=== PATIENT | female | born 1955 | race Caucasian/White ===

== ENCOUNTER 2020-09-17 11:20 | Outpatient (REF) | payer MEDICARE, SELFPAY ==
[2020-09-17 14:27] LABS: Alanine Aminotransferase 11 U/L (0-31); Albumin Level 4.5 g/dL (3.5-5.0); Alkaline Phosphatase 62 U/L (39-117); Anion Gap 12 (12-20); Aspartate Amino Transferase 14 U/L (5-31); Bilirubin Total 0.3 mg/dL (0.0-1.0); Blood Urea Nitrogen 19 mg/dL (9-16); Calcium 8.8 mg/dL (8.4-10.2); Carbon Dioxide 28 mmol/L (22-29); Chloride 106 mmol/L (96-108); Estimated Glomerular Filt Rate 58; Glucose Random 100 mg/dL (60-115); Potassium 4.2 mmol/l (3.3-5.1); Sodium 142 mmol/L (135-145); Total Protein 6.8 g/dL (6.5-8.0)
== END 2020-09-17 11:21 | disposition home or self-care (01) ==
LOC: HO.HMGCLDS 11:20
PROVIDERS: PCP Internal Medicine; Visit Provider Internal Medicine
DX: I10 Essential (primary) hypertension (principal); F41.9 Anxiety disorder, unspecified; E78.9 Disorder of lipoprotein metabolism, unspecified
CPT/HCPCS: 80053

== ENCOUNTER 2021-02-18 14:00 | Outpatient (REF) | payer MEDICARE, BC, SELFPAY ==
[2021-02-18 17:19] LABS: Alanine Aminotransferase 12 U/L (0-31); Albumin Level 4.5 g/dL (3.5-5.0); Alkaline Phosphatase 63 U/L (39-117); Anion Gap 13 (12-20); Aspartate Amino Transferase 15 U/L (5-31); Bilirubin Total 0.4 mg/dL (0.0-1.0); Blood Urea Nitrogen 18 mg/dL (9-16); Calcium 9.3 mg/dL (8.4-10.2); Carbon Dioxide 27 mmol/L (22-29); Chloride 105 mmol/L (96-108); Estimated Glomerular Filt Rate 58; Glucose Random 81 mg/dL (60-115); Potassium 5.1 mmol/L (3.3-5.1); Sodium 140 mmol/L (135-145); Total Protein 6.9 g/dL (6.5-8.0)
== END 2021-02-18 14:01 | disposition home or self-care (01) ==
LOC: HO.HMGCLDS 14:00
PROVIDERS: PCP Internal Medicine; Visit Provider Internal Medicine
DX: E78.9 Disorder of lipoprotein metabolism, unspecified (principal); I10 Essential (primary) hypertension; F41.1 Generalized anxiety disorder
CPT/HCPCS: 36415; 80053

== ENCOUNTER 2021-08-21 09:04 | Outpatient (REF) | payer MEDICARE, BC, SELFPAY | END 2021-08-21 09:05 | disposition home or self-care (01) | LOC: HO.HMGCLDS 09:04 | PROVIDERS: PCP Internal Medicine; Visit Provider Internal Medicine | DX: Z20.822 Contact with and (suspected) exposure to COVID-19 (principal) | CPT/HCPCS: C9803; U0003; U0005 ==

== ENCOUNTER 2021-09-09 08:36 | Outpatient (REF) | payer MEDICARE, BC, SELFPAY ==
[2021-09-09 12:03] LABS: Alanine Aminotransferase 11 U/L (0-31); Albumin Level 4.4 g/dL (3.5-5.0); Alkaline Phosphatase 68 U/L (39-117); Anion Gap 13 (12-20); Aspartate Amino Transferase 17 U/L (5-31); Bilirubin Total 0.6 mg/dL (0.0-1.0); Blood Urea Nitrogen 17 mg/dL (9-16); Calcium 9.5 mg/dL (8.4-10.2); Carbon Dioxide 27 mmol/L (22-29); Chloride 106 mmol/L (96-108); Cholesterol 195 mg/dL; Estimated Glomerular Filt Rate 53; Glucose Fasting 100 mg/dL (60-99); HDL Cholesterol 50 mg/dL; LDL Cholesterol Calculated 114 mg/dl; Potassium 4.1 mmol/L (3.3-5.1); Sodium 142 mmol/L (135-145); Total Protein 6.7 g/dL (6.5-8.0); Triglycerides 156 mg/dL
== END 2021-09-09 08:37 | disposition home or self-care (01) ==
LOC: HO.HMGCLDS 08:36
PROVIDERS: PCP Internal Medicine; Visit Provider Internal Medicine
DX: E66.01 Morbid (severe) obesity due to excess calories (principal); E78.9 Disorder of lipoprotein metabolism, unspecified; F41.1 Generalized anxiety disorder; I10 Essential (primary) hypertension
CPT/HCPCS: 36415; 80053; 80061

== ENCOUNTER 2022-02-17 11:37 | Outpatient (REF) | payer MEDICARE, BC, SELFPAY ==
[2022-02-17 13:37] LABS: MANUAL DIFF FLAG NO
[2022-02-17 13:41] LABS: Basophils Absolute Auto 0.1 X10*3/uL (0.0-0.2); Basophils Percent Auto 0.9 % (0-2); Eosinophils Absolute Auto 0.2 X10*3/uL (0.0-0.4); Eosinophils Percent Auto 2.1 % (0-4); Hematocrit 42.5 % (37.0-47.0); Hemoglobin 13.1 g/dl (12.0-16.0); Imm Gran Abs Auto 0.06 X10*3/uL (0.00-0.03); Imm Gran Pct Auto 0.7 % (0.0-0.4); Lymphocytes Absolute Auto 1.7 X10*3/uL (1.2-4.9); Lymphocytes Percent Auto 20.8 % (20-40); Mean Corpuscular HGB Conc 30.8 g/dl (31.0-35.0); Mean Corpuscular Hemoglobin 30.2 pg (27.0-33.0); Mean Corpuscular Volume 97.9 fL (80.0-98.0); Mean Platelet Volume 9.8 fL (9.4-12.3); Monocytes Absolute Auto 0.5 X10*3/uL (0.1-1.2); Monocytes Percent Auto 6.2 % (2-11); Neutrophils Absolute Auto 5.6 x10*3/uL (2.0-8.3); Neutrophils Percent Auto 69.3 % (45-73); Platelet Count 300 X10*3/uL (160-400); Red Blood Count 4.34 X10*6/uL (4.20-5.50); Red Cell Distribution Width 15.1 % (11.0-16.0)
[2022-02-17 13:52] LABS: Estimated Average Glucose 111 mg/dL; Hemoglobin A1c % 5.5 %
[2022-02-17 14:03] LABS: Alanine Aminotransferase 11 U/L (0-31); Albumin Level 4.3 g/dL (3.5-5.0); Alkaline Phosphatase 63 U/L (39-117); Anion Gap 13 (12-20); Aspartate Amino Transferase 15 U/L (5-31); Bilirubin Total 0.5 mg/dL (0.0-1.0); Blood Urea Nitrogen 15 mg/dL (9-16); Calcium 9.6 mg/dL (8.4-10.2); Carbon Dioxide 26 mmol/L (22-29); Chloride 106 mmol/L (96-108); Estimated Glomerular Filt Rate 56; Glucose Random 112 mg/dL (60-115); Potassium 4.5 mmol/L (3.3-5.1); Sodium 140 mmol/L (135-145); Total Protein 6.7 g/dL (6.5-8.0)
== END 2022-02-17 11:38 | disposition home or self-care (01) ==
LOC: HO.HMGCLDS 11:37
PROVIDERS: PCP Internal Medicine; Visit Provider Internal Medicine
DX: E78.9 Disorder of lipoprotein metabolism, unspecified (principal); F41.1 Generalized anxiety disorder; I10 Essential (primary) hypertension; E66.9 Obesity, unspecified; R73.01 Impaired fasting glucose
CPT/HCPCS: 36415; 80053; 83036; 85025

== ENCOUNTER 2022-10-19 08:37 | Outpatient (REF) | payer MEDICARE, BC, SELFPAY ==
[2022-10-19 12:37] LABS: Alanine Aminotransferase 9 U/L (0-31); Albumin Level 4.2 g/dL (3.5-5.0); Alkaline Phosphatase 47 U/L (39-117); Anion Gap 13 (12-20); Aspartate Amino Transferase 15 U/L (5-31); Bilirubin Total 0.6 mg/dL (0.0-1.0); Blood Urea Nitrogen 22 mg/dL (9-16); Carbon Dioxide 27 mmol/L (22-29); Chloride 106 mmol/L (96-108); Cholesterol 175 mg/dL; Estimated Glomerular Filt Rate > 60; Glucose Fasting 92 mg/dL (60-99); HDL Cholesterol 43 mg/dL; LDL Cholesterol Calculated 101 mg/dl; Potassium 4.1 mmol/L (3.3-5.1); Sodium 142 mmol/L (135-145); Total Protein 6.2 g/dL (6.5-8.0); Triglycerides 159 mg/dL
== END 2022-10-19 08:38 | disposition home or self-care (01) ==
LOC: HO.HMGCLDS 08:37
PROVIDERS: Visit Provider Internal Medicine
DX: E78.9 Disorder of lipoprotein metabolism, unspecified (principal); F41.1 Generalized anxiety disorder; I10 Essential (primary) hypertension
CPT/HCPCS: 36415; 80053; 80061

== ENCOUNTER 2023-03-09 12:47 | Outpatient (REF) | payer MEDICARE, BC, SELFPAY ==
[2023-03-09 14:28] LABS: MANUAL DIFF FLAG NO
[2023-03-09 15:18] LABS: Basophils Absolute Auto 0.1 X10*3/uL (0.0-0.2); Basophils Percent Auto 0.7 % (0-2); Eosinophils Absolute Auto 0.1 X10*3/uL (0.0-0.4); Eosinophils Percent Auto 1.4 % (0-4); Hematocrit 44.9 % (37.0-47.0); Hemoglobin 13.9 g/dl (12.0-16.0); Imm Gran Abs Auto 0.06 X10*3/uL (0.00-0.03); Imm Gran Pct Auto 0.7 % (0.0-0.4); Lymphocytes Absolute Auto 1.5 X10*3/uL (1.2-4.9); Lymphocytes Percent Auto 16.8 % (20-40); Mean Corpuscular Hemoglobin 31.2 pg (27.0-33.0); Mean Corpuscular Volume 100.9 fL (80.0-98.0); Mean Platelet Volume 10.1 fL (9.4-12.3); Monocytes Absolute Auto 0.6 X10*3/uL (0.1-1.2); Monocytes Percent Auto 6.1 % (2-11); Neutrophils Absolute Auto 6.7 x10*3/uL (2.0-8.3); Neutrophils Percent Auto 74.3 % (45-73); Platelet Count 275 X10*3/uL (160-400); Red Blood Count 4.45 X10*6/uL (4.20-5.50); White Blood Count 9.1 X10*3/uL (4.8-10.8)
[2023-03-09 15:46] LABS: Alanine Aminotransferase 8 U/L (0-31); Albumin Level 4.4 g/dL (3.5-5.0); Alkaline Phosphatase 51 U/L (39-117); Anion Gap 12 (12-20); Aspartate Amino Transferase 13 U/L (5-31); Bilirubin Total 0.6 mg/dL (0.0-1.0); Blood Urea Nitrogen 16 mg/dL (9-16); Calcium 9.8 mg/dL (8.4-10.2); Carbon Dioxide 27 mmol/L (22-29); Chloride 105 mmol/L (96-108); Estimated Glomerular Filt Rate > 60; Glucose Random 92 mg/dL (60-115); Potassium 4.4 mmol/L (3.3-5.1); Sodium 140 mmol/L (135-145); Total Protein 6.9 g/dL (6.5-8.0)
== END 2023-03-09 12:48 | disposition home or self-care (01) ==
LOC: HO.HMGCLDS 12:47
PROVIDERS: PCP Internal Medicine; Visit Provider Internal Medicine
DX: Z00.01 Encounter for general adult medical examination with abnormal findings (principal); F41.1 Generalized anxiety disorder; E78.9 Disorder of lipoprotein metabolism, unspecified; I10 Essential (primary) hypertension
CPT/HCPCS: 36415; 80053; 85025

== ENCOUNTER 2023-04-06 11:06 | Outpatient (REF) | payer MEDICARE, BC, SELFPAY ==
--- NOTE | ~2023-04-06 | MM_ITS ---
EXAMINATION: MM SCREENING DIGITAL BREAST TOMOSYNTHESIS, BILATERAL CLINICAL INFORMATION: Screening. Asymptomatic. The lifetime risk of breast cancer based on the Tyrer-Cuzick Model is 1.8%. COMPARISON: Mammography: 2016. TECHNIQUE: Digital breast tomosynthesis is performed in both the craniocaudal and mediolateral oblique views along with computer-aided detection (CAD). Synthesized 2D images are generated from the tomosynthesis. FINDINGS: The breasts are almost entirely fatty (ACR BI-RADS breast composition Category a). There are no significant masses, abnormal calcifications, or other abnormalities. MM/MM tomosynthesis screening BI IMPRESSION: No mammographic evidence of malignancy. ASSESSMENT: BI-RADS BI-RADS 1 - Negative RECOMMENDATION: Routine annual mammography screening. 1 year F/U This examination should not preclude the clinical evaluation of a suspicious palpable abnormality. This patient's information was entered into a reminder system with a target due date for their next mammogram.
== END 2023-04-06 11:07 | disposition home or self-care (01) ==
LOC: HO.MAMMO 11:06
PROVIDERS: PCP Internal Medicine; Visit Provider Internal Medicine
DX: Z12.31 Encounter for screening mammogram for malignant neoplasm of breast (principal)
CPT/HCPCS: 77063; 77067

== ENCOUNTER → 2023-04-06 12:00 | Outpatient (BNV) | payer MEDICARE, BC, SELFPAY | PROVIDERS: PCP Internal Medicine; Visit Provider Radiology Diagnostic Radiology | DX: Z12.31 Encounter for screening mammogram for malignant neoplasm of breast (principal) | CPT/HCPCS: 77063; 77067 ==

== ENCOUNTER → 2023-04-22 11:39 | Outpatient (BNVA) | payer MEDICARE, BC, SELFPAY | PROVIDERS: PCP Internal Medicine; Visit Provider Nurse Practitioner ==

== ENCOUNTER 2023-07-13 09:03 | Outpatient (AMB) | payer MEDICARE, BC, SELFPAY ==
[2023-07-13 09:07] VITALS: BP 120/70; PULSE 60; O2SAT 97; BMI 30.6
--- NOTE | 2023-07-13 09:07 | MHC.PC.OV ---
Vital Signs 07/13/23 09:07 Height 5 ft 3 in Weight 173 lb BMI 30.6 BP 120/70 Blood Pressure Location Rt brachial Position Sitting Pulse 60 Pulse Source Pulse Oximeter Pulse Oximetry (%) 97 Oxygen Delivery Method Room Air Intake Visit Reasons: 4 month follow up Allergies alendronate sodium [From FOSAMAX] Allergy (Unknown, Verified 07/13/23 09:08) JOINT PAIN ibuprofen [From MOTRIN] Allergy (Unknown, Verified 07/13/23 09:08) HAND SWELLING Sulfa (Sulfonamide Antibiotics) [SULFA(SULFONAMIDE ANTIBIOTICS)] Allergy (Unknown, Verified 07/13/23 09:08) RASH, unknown sulfamethoxazole [From Bactrim] Allergy (Unknown, Verified 07/13/23 09:08) Unknown trimethoprim [From Bactrim] Allergy (Unknown, Verified 07/13/23 09:08) Unknown simvastatin Adverse Reaction (Unknown, Verified 07/13/23 09:08) leg cramps Medication List - Last Reconciled 07/13/23 by Latricia Hebert MD ezetimibe 10 mg PO DAILY 90 days fluoxetine 10 mg PO DAILY 90 days lisinopril 20 mg PO DAILY 90 days Tobacco use date assessed: 07/13/23 Fall risk assessment: No Falls in past year Last assessed Fall Risk: 07/13/23 Dental Screening Dental Screen Date: 07/13/23 Did you have a dental visit in the last 12 months?: No Did you have a dental problem in the last 6 months where you did not have access to dental care?: No Was dental information given to patient?: Patient declined HPI 4 month follow up HPI Details Patient is a 68-year-old female came in today for her regular 4 month follow-up appointment Patient is in her usual state of health Labs were done February of this year New set of lab order placed to be done before her next visit Patient have company with a neighbor's, she tells me they often meet and talk about stuff. Her depression and anxiety is stable, she is on fluoxetine 10 mg. Hypertension: she is on lisinopril 20 mg.? Blood pressure is well controlled Osteoarthritis multiple joints, flare up when weather is cold and damp, she is taking Tylenol as needed. Continue Zetia for lipid disorder.? Back pain is stable patient have a history of lumbar scoliosis BMI is elevated patient is trying to lose weight Follow-up 4 months? [facility] Medical History Osteopenia Osteoarthritis Morbid obesity Lipid disorder Hypertension, essential Anxiety, generalized Surgical History History of esophagogastroduodenoscopy (EGD) History of colonoscopy History of tubal ligation Hx of cholecystectomy Family History Other Mental health disorder Substance use disorder Social History Housing: Apartment Alcohol intake: current Alcohol intake frequency: holidays/special occasions only Alcohol type: beer and wine Patient Tobacco Use Status: Never used Tobacco e-Cigarette/Vaping Use: Never Used service: No Current occupational status: retired Cognitive needs: No Hearing needs: No Vision needs: Yes Questionnaire PHQ-9 Over the last 2 weeks, how often have you been bothered by any of the following problems? 1. Little interest or pleasure in doing things: not at all 2. Feeling down, depressed, or hopeless: several days 3. Trouble falling or staying asleep, or sleeping too much: more than half the days 4. Feeling tired or having little energy: several days 5. Poor appetite or overeating: not at all 6. Feeling bad about yourself - or that you are a failure or have let yourself or your family down: not at all 7. Trouble concentrating on things, such as reading the newspaper or watching television: not at all 8. Moving or speaking so slowly that other people could have noticed. Or the opposite - being so fidgety or restless that you have been moving around a lot more than usual: not at all 9. Thoughts that you would be better off or of hurting yourself in some way: not at all Total score: 4 Depression Screening Interpretation: Negative Depression Screening Done: Yes 85243 - PHQ-9 Billing: Yes Source: Developed by Drs. Derrell Allred, Rhonda Vidal, Tejas Saravia and colleagues, with an educational juan pablo from [employer]. Thrive Questionnaire Date Thrive assessed: 11/03/22 AUDIT C Alcohol Use Questionnaire (AUDIT-C) 1. How often do you have a drink containing alcohol?: Never 3. How often do you have six or more drinks on one occasion?: Never Total Score: 0 Score Reviewed/Action Taken: Yes JACOBO-7 AMB Questionnaire JACOBO-7 Date JACOBO - 7 assessed: 10/28/21 Source: Developed by Drs. Derrell Allred, Rhonda Vidal, Tejas Saravia and colleagues, with an educational juan pablo from [employer]. Review of Systems Const Denies chills and Denies fever(s) ENT Denies epistaxis and Denies nasal discharge Card Denies chest pain Resp Denies chest congestion, Denies cough and Denies hemoptysis GI Denies diarrhea and Denies nausea Skin/Breast Denies rash Neuro Reports no additional complaints Psych Reports no additional complaints Endo Reports no additional complaints Physical exam (Primary Care) Vital Signs: Last Vital Signs Pulse 60 07/13/23 09:07 BP 120/70 07/13/23 09:07 Pulse Ox 97 07/13/23 09:07 Oxygen Delivery Method Room Air 07/13/23 09:07 BMI result Body Mass Index 30.6 Tobacco/Smoking Status: Tobacco use Status Tobacco use date assessed 07/13/23 07/13/23 09:11 Patient Tobacco Use Status Never used Tobacco 07/13/23 09:11 e-Cigarette/Vaping Use Never Used 07/13/23 09:11 PHQ-9: PHQ-9 Score PHQ-9: Total score 4 07/13/23 09:42 Depression Screening Interpretation: Negative Thrive Assessment: Date of Thrive Assessment Date Thrive assessed 11/03/22 07/13/23 09:11 Const General: cooperative, comfortable and no acute distress Orientation/consciousness: patient oriented x3 HENMT Head: Yes normocephalic Eyes General: appearance normal, both eyes and all related structures Neck Neck: Yes supple Resp Effort & Inspection: normal respiratory effort, no cough and no stridor Cardio Rhythm: regular rhythm Heart sounds: S1 normal heart sound present and S2 normal heart sound present Skin General skin exam: turgor normal Neuro General: patient oriented x3, tone normal and moves all extremities Extrem Right lower extremity: no edema Left lower extremity: no edema Assessment and Plan Assessment & Plan (1) Hypertension, essential: Code(s): I10 - Essential (primary) hypertension (2) Anxiety, generalized: Code(s): F41.1 - Generalized anxiety disorder (3) Lipid disorder: Code(s): E78.9 - Disorder of lipoprotein metabolism, unspecified (4) Osteoarthritis: Code(s): M19.90 - Unspecified osteoarthritis, unspecified site Qualifiers: Osteoarthritis location: multiple joints Osteoarthritis type: primary Qualified Code(s): M15.9 - Polyosteoarthritis, unspecified (5) Osteopenia: Code(s): M85.80 - Other specified disorders of bone density and structure, unspecified site Qualifiers: Osteopenia location: multiple sites Qualified Code(s): M85.89 - Other specified disorders of bone density and structure, multiple sites (6) Thoracic scoliosis: Code(s): M41.9 - Scoliosis, unspecified Qualifiers: Idiopathic scoliosis type: other Scoliosis type: idiopathic Qualified Code(s): M41.24 - Other idiopathic scoliosis, thoracic region (7) Obesity due to excess calories: Code(s): E66.09 - Other obesity due to excess calories Qualifiers: Body mass index: BMI 30.0-30.9 Obesity classification: adult class 1 (BMI 30 - 34.9) Serious obesity comorbidity presence: with serious comorbidity Qualified Code(s): E66.09 - Other obesity due to excess calories; Z68.30 - Body mass index [BMI] 30.0-30.9, adult Plan Patient is a 68-year-old female came in today for her regular 4 month follow-up appointment Patient is in her usual state of health Labs were done February of this year New set of lab order placed to be done before her next visit Patient have company with a neighbor's, she tells me they often meet and talk about stuff. Her depression and anxiety is stable, she is on fluoxetine 10 mg. Hypertension: she is on lisinopril 20 mg.? Blood pressure is well controlled Osteoarthritis multiple joints, flare up when weather is cold and damp, she is taking Tylenol as needed. Continue Zetia for lipid disorder.? BMI is elevated patient is trying to lose weight Back pain is stable patient have a history of thoracic scoliosis Follow-up 4 months? Orders: Orders Complete Blood Count Auto Diff Today E66.01 - Morbid (severe) obesity due to excess calories, E78.9 - Disorder of lipoprotein metabolism, unspecified, F41.1 - Generalized anxiety disorder, I10 - Essential (primary) hypertension, M19.90 - Unspecified osteoarthritis, unspecified site, M41.9 - Scoliosis, unspecified, M85.80 - Other specified disorders of bone density and structure, unspecified site Comprehensive [place]. Panel Fast Today E66.01 - Morbid (severe) obesity due to excess calories, E78.9 - Disorder of lipoprotein metabolism, unspecified, F41.1 - Generalized anxiety disorder, I10 - Essential (primary) hypertension, M19.90 - Unspecified osteoarthritis, unspecified site, M41.9 - Scoliosis, unspecified, M85.80 - Other specified disorders of bone density and structure, unspecified site Vitamin B12 Today E66.01 - Morbid (severe) obesity due to excess calories, E78.9 - Disorder of lipoprotein metabolism, unspecified, F41.1 - Generalized anxiety disorder, I10 - Essential (primary) hypertension, M19.90 - Unspecified osteoarthritis, unspecified site, M41.9 - Scoliosis, unspecified, M85.80 - Other specified disorders of bone density and structure, unspecified site Lipid Panel Today E66.01 - Morbid (severe) obesity due to excess calories, E78.9 - Disorder of lipoprotein metabolism, unspecified, F41.1 - Generalized anxiety disorder, I10 - Essential (primary) hypertension, M19.90 - Unspecified osteoarthritis, unspecified site, M41.9 - Scoliosis, unspecified, M85.80 - Other specified disorders of bone density and structure, unspecified site Vitamin D 25-OH (D2 and D3) Today E66.01 - Morbid (severe) obesity due to excess calories, E78.9 - Disorder of lipoprotein metabolism, unspecified, F41.1 - Generalized anxiety disorder, I10 - Essential (primary) hypertension, M19.90 - Unspecified osteoarthritis, unspecified site, M41.9 - Scoliosis, unspecified, M85.80 - Other specified disorders of bone density and structure, unspecified site TSH reflex Free T4 Today E66.01 - Morbid (severe) obesity due to excess calories, E78.9 - Disorder of lipoprotein metabolism, unspecified, F41.1 - Generalized anxiety disorder, I10 - Essential (primary) hypertension, M19.90 - Unspecified osteoarthritis, unspecified site, M41.9 - Scoliosis, unspecified, M85.80 - Other specified disorders of bone density and structure, unspecified site Coding Level of Care Code Est Pt Level 4 (14295) Diagnoses Hypertension, essential I10 Anxiety, generalized F41.1 Lipid disorder E78.9 Primary osteoarthritis involving multiple joints M15.9 Osteoarthritis location: multiple joints Osteoarthritis type: primary Osteopenia of multiple sites M85.89 Osteopenia location: multiple sites Other idiopathic scoliosis, thoracic region M41.24 Idiopathic scoliosis type: other Scoliosis type: idiopathic Class 1 obesity due to excess calories with serious comorbidity and body mass index (BMI) of 30.0 to 30.9 in adult E66.09; Z68.30 Body mass index: BMI 30.0-30.9 Obesity classification: adult class 1 (BMI 30 - 34.9) Serious obesity comorbidity presence: with serious comorbidity
== END 2023-07-13 09:42 | disposition home or self-care (01) ==
PROVIDERS: PCP Internal Medicine; Visit Provider Internal Medicine
DX: I10 Essential (primary) hypertension (principal); F41.1 Generalized anxiety disorder; E78.9 Disorder of lipoprotein metabolism, unspecified; M15.9 Polyosteoarthritis, unspecified; M85.89 Other specified disorders of bone density and structure, multiple sites; M41.24 Other idiopathic scoliosis, thoracic region; E66.09 Other obesity due to excess calories; Z68.30 Body mass index [BMI] 30.0-30.9, adult
CPT/HCPCS: 99214

== ENCOUNTER 2023-09-22 09:01 | Day surgery (SDC) | payer MEDICARE, BC, SELFPAY ==
[2023-09-17 14:25] VITALS: BMI 30.6
--- NOTE | 2023-09-21 12:25 | HO.ANESPROP2 ---
Documented by User: Iza Carson NP 09/21/23 12:26 HPI - Anesthesia Eval Consult details Narrative: 68yo F for Upper Endoscopy and Colonoscopy [facility] Active Problems Active Problems: All Active Problems (Updated 07/13/23 @ 09:44 by Latricia Hebert MD) Obesity due to excess calories (Acute) Family history of polyps in the colon (Acute) Dysphagia (Acute) Pre-op examination (Acute) Thoracic scoliosis (Acute) Colon cancer screening (Acute) Encounter for general adult medical examination with abnormal findings (Acute) Fall (Acute) History of herpes zoster (Acute) Obesity (BMI 30.0-34.9) (Acute) Osteopenia (Acute) Osteoarthritis (Acute) Morbid obesity (Acute) Lipid disorder (Acute) Hypertension, essential (Acute) Anxiety, generalized (Acute) Lipid disorder (Acute) Past Medical History Medical History Osteopenia Osteoarthritis Morbid obesity Lipid disorder Hypertension, essential Anxiety, generalized Family History Family History Other Mental health disorder Substance use disorder Surgical History Surgical History History of esophagogastroduodenoscopy (EGD) History of colonoscopy History of tubal ligation Hx of cholecystectomy Social History Social History Housing: Apartment Alcohol intake: current Alcohol intake frequency: does not drink Alcohol type: beer and wine Patient Tobacco Use Status: Never used Tobacco e-Cigarette/Vaping Use: Never Used Second Hand Smoke Exposure: No Use of substances other than those prescribed or required for medical reasons: No Are you DNR?: No Advance Directives: No Advance Directives Information Provided: Yes Advance Directives on File: No service: No Current occupational status: retired Cognitive needs: No Hearing needs: No Vision needs: Yes Meds Allergies Allergy/AdvReac Type Severity Reaction Status Date / Time alendronate sodium Allergy Unknown JOINT PAIN Verified 07/13/23 09:08 [From FOSAMAX] ibuprofen [From MOTRIN] Allergy Unknown HAND Verified 07/13/23 09:08 SWELLING Sulfa (Sulfonamide Allergy Unknown RASH, Verified 07/13/23 09:08 Antibiotics) unknown [SULFA(SULFONAMIDE ANTIBIOTICS)] sulfamethoxazole Allergy Unknown Unknown Verified 07/13/23 09:08 [From Bactrim] trimethoprim [From Bactrim] Allergy Unknown Unknown Verified 07/13/23 09:08 simvastatin AdvReac Unknown leg cramps Verified 07/13/23 09:08 Exam Height,Weight and Vital Signs: Height 5 ft 3 in Weight 78.471 kg Pertinent Lab Results Pertinent Lab Results: Laboratory Tests 03/09/23 13:01 WBC 9.1 Hgb 13.9 Hct 44.9 Plt Count 275 Sodium 140 Potassium 4.4 Chloride 105 Carbon Dioxide 27 BUN 16 Creatinine 0.91 Assessment and Plan Assessment Anesthesia Assessment: Chart Reviewed Documented by User: Gege Ornelas MD 09/22/23 09:47 [facility] Past Medical History Medical History Osteopenia Osteoarthritis Morbid obesity Lipid disorder Hypertension, essential Anxiety, generalized Family History Family History Other Mental health disorder Substance use disorder Family history of problems with anesthesia: No Surgical History Surgical History History of esophagogastroduodenoscopy (EGD) History of colonoscopy History of tubal ligation Hx of cholecystectomy History of Problems with Anesthesia: No Social History Social History Housing: Apartment Alcohol intake: current Alcohol intake frequency: does not drink Alcohol type: beer and wine Patient Tobacco Use Status: Never used Tobacco e-Cigarette/Vaping Use: Never Used Second Hand Smoke Exposure: No Use of substances other than those prescribed or required for medical reasons: No Are you DNR?: No Advance Directives: No Advance Directives Information Provided: Yes Advance Directives on File: No service: No Current occupational status: retired Cognitive needs: No Hearing needs: No Vision needs: Yes Meds Allergies Allergy/AdvReac Type Severity Reaction Status Date / Time alendronate sodium Allergy Unknown JOINT PAIN Verified 07/13/23 09:08 [From FOSAMAX] ibuprofen [From MOTRIN] Allergy Unknown HAND Verified 07/13/23 09:08 SWELLING Sulfa (Sulfonamide Allergy Unknown RASH, Verified 07/13/23 09:08 Antibiotics) unknown [SULFA(SULFONAMIDE ANTIBIOTICS)] sulfamethoxazole Allergy Unknown Unknown Verified 07/13/23 09:08 [From Bactrim] trimethoprim [From Bactrim] Allergy Unknown Unknown Verified 07/13/23 09:08 simvastatin AdvReac Unknown leg cramps Verified 07/13/23 09:08 Exam Airway Mallampati Class: II (missing teeth on bottom, nothing loose) TM Dist: >3cm Neck ROM: Full Heart: rrr Lungs: cta Assessment and Plan Assessment Anesthesia Assessment: Anesthesia Plan Discussed Final Anesthetic Review Family History of Problems with Anesthesia: No History of Problems with Anesthesia: No NPO: Yes ASA Class: III Final Preanesthetic Review: No Changes in Pt Med Stat, Meds/Allgs Chart Reviewed and Consent Obtained/Reviewed Patient Risk: Intermediate Procedure Risk: Intermediate Anesthetic Plan Anesthetic Plan: MAC: Disposition: Standard PACU
[2023-09-22 09:40] VITALS: BP 133/82; PULSE 77; RESP 16; TEMP 37; O2SAT 94
--- NOTE | 2023-09-22 09:42 | MHC.SHP ---
Pre-Procedural Eval Section A Date of Service: 09/22/23 Section B Chief Complaint: Gastro-esophageal reflux disease without esophagit Details of Present Illness: screening and dysphagia Relevant Family History (Specify if Yes): No Relevant Social History: None Present Medications: see Short Stay Collaborative assessment Medical History: Significant History (Osteopenia Osteoarthritis Morbid obesity Lipid disorder Hypertension, essential Anxiety, generalized) History of Previous Operations: Relevant previous surgery/procedure and date(s) (History of esophagogastroduodenoscopy (EGD) History of colonoscopy History of tubal ligation Hx of cholecystectomy) Allergies: Allergies Allergy/AdvReac Type Severity Reaction Status Date / Time alendronate sodium Allergy Unknown JOINT PAIN Verified 07/13/23 09:08 [From FOSAMAX] ibuprofen [From MOTRIN] Allergy Unknown HAND Verified 07/13/23 09:08 SWELLING Sulfa (Sulfonamide Allergy Unknown RASH, Verified 07/13/23 09:08 Antibiotics) unknown [SULFA(SULFONAMIDE ANTIBIOTICS)] sulfamethoxazole Allergy Unknown Unknown Verified 07/13/23 09:08 [From Bactrim] trimethoprim [From Bactrim] Allergy Unknown Unknown Verified 07/13/23 09:08 simvastatin AdvReac Unknown leg cramps Verified 07/13/23 09:08 Review of Systems Sugical H&P ROS: Negative: Constitution, Cardiovascular, Respiratory, Neurological, Psychiatric, Hem-Onc, Allergic/Immunologic, Gastrointestinal, Genitourinary, Musculoskeletal, Integumentary, Endocrine and Eyes/Ears/Nose/Throat Exam Surgical H&P Exam: Normal: HEENT, Normal: Heart, Normal: Lungs, Normal: Extremities, Normal: Abdomen, Normal: Skin and Normal: Neurological Plan Diagnosis/Plan: Unchanged I have reviewed the history and physical and performed a pertinent physical examination on my patient. No changes have occurred unless specified. Time Spent With Patient Time: Total time managing care of this patient today ____ minutes.
--- NOTE | 2023-09-22 09:53 | W.PM.OPN ---
Operative Note Operative Note Date of Service: 09/22/23 Narrative: Operative Information Procedure Description: EGD, Colonoscopy Indication: dysphagia, screening Anesthesia: MAC FLEXIBLE TRANSORAL UPPER GASTROINTESTINAL ENDOSCOPY AND COLONOSCOPY PROCEDURE NOTE UPPER ENDOSCOPY Consent: Indications for the procedure and potential complications of bleeding, perforation, reaction to medications and missed diagnosis were discussed with the patient and informed consent was obtained. Instrument: Olympus GIF H 190 J mid size upper endoscope Monitoring: Vital signs and clinical assessment, continuous EKG monitoring, Pulse oximetry, Carbon Dioxide monitoring and blood pressure monitoring were done throughout the procedure. Procedure: The patient was placed in the left lateral decubitis position and pre-procedure medications were administered and a bite block was placed. The endoscope was inserted into the mouth and advanced under direct vision to the third part of duodenum. A careful inspection was made as the upper endoscope was withdrawn including a retroflexed examination of the proximal stomach; Findings and interventions are described below. Findings: Larynx:normal Esophagus: GE junction at 36 cm, diaphragm hiatus at 36 cm, normal mucosa --balloon dilation done at the GEJ to 18 mm, no tears seen, Stomach: Patient had a large paraesophgeal hernia, and the scope was looping in the hernia so unable to advance further to the antrum Duodenum: unable to enter Intervention: balloon dilation COLONOSCOPY Instrument: Olympus variable stiffness pediatric scope 190L Colonoscopy Monitoring: Vital signs and clinical assessment, continuous EKG monitoring, Pulse oximetry, Carbon Dioxide monitoring and blood pressure monitoring were done throughout the procedure. Colon withdrawal time was 20 minutes. Procedure: The patient was placed in the left lateral decubitis position and pre-procedure medications were administered. After a digital rectal examination of the ano-rectum, the video colonoscope was inserted into the rectum and advanced through the colon to the cecum/TI. The colonoscope was slowly withdrawn in a retrograde panoramic fashion and the colon mucosa was carefully examined including a retroflexed view of the rectum. Findings and interventions are described below. Procedure Difficulty: Findings: Terminal Ileum-normal Cecum:normal Ascending Colon: normal Transverse Colon -normal Descending Colon:normal Sigmoid Colon:moderate diverticulosis Rectum: Retroflexion with small internal hemorrhoids, grade I, In the mid rectum there was a large sessile polyp about 15-17 mm. This was lifted with eleview injection and then removed piece meal with hot snare- x 2 ultra clips applied for hemostasis. Anorectum - normal Colon preparation: [place] Bowel Preparation Scale Right colon; 2 Transverse colon: 2 Left colon; 2 (0 = Unprepared colon segment with mucosa not seen due to solid stool that cannot be cleared. 1 = Portion of mucosa of the colon segment seen, but other areas of the colon segment not well seen due to staining, residual stool and/or opaque liquid. 2 = Minor amount of residual staining, small fragments of stool and/or opaque liquid, but mucosa of colon segment seen well. 3 = Entire mucosa of colon segment seen well with no residual staining, small fragments of stool or opaque liquid) Impression and Post Procedure Diagnosis: Endoscopy Findings: para esophgeal hernia, large Colonoscopy Findings: polyp internal hemorrhoids diverticular disease Plan: Await Pathology results Repeat Colonoscopy in 6-12 months or earlier if clinically indicated High fiber diet leaflet avoid straining at stool, epsom salts and sitz bath, anusol supps or cream Refer for surgical repair for hernia--she is symptomatic with dysphagia. Above findings were reviewed with the patient and relevant handouts were provided if indicated.
[2023-09-22 11:28] VITALS: BP 141/54; PULSE 66; RESP 16; TEMP 36.3; O2SAT 96
[2023-09-22 11:43] VITALS: BP 144/70; PULSE 60; RESP 16; TEMP 36.9; O2SAT 98
== END 2023-09-22 12:10 | disposition home or self-care (01) ==
PROVIDERS: PCP Internal Medicine; Visit Provider Internal Medicine Gastroenterology
PROC: (CPT 45385; principal; 2023-09-22 11:00)
DX: Z12.11 Encounter for screening for malignant neoplasm of colon (principal); Z83.719 Family history of colon polyps, unspecified; D12.8 Benign neoplasm of rectum; K57.30 Diverticulosis of large intestine without perforation or abscess without bleeding; K64.0 First degree hemorrhoids; R13.10 Dysphagia, unspecified; K21.9 Gastro-esophageal reflux disease without esophagitis; K44.9 Diaphragmatic hernia without obstruction or gangrene; E66.01 Morbid (severe) obesity due to excess calories; Z68.30 Body mass index [BMI] 30.0-30.9, adult; I10 Essential (primary) hypertension; E78.00 Pure hypercholesterolemia, unspecified; E75.6 Lipid storage disorder, unspecified; F41.1 Generalized anxiety disorder; Z98.890 Other specified postprocedural states; M85.80 Other specified disorders of bone density and structure, unspecified site; M19.90 Unspecified osteoarthritis, unspecified site; Z88.2 Allergy status to sulfonamides; Z88.1 Allergy status to other antibiotic agents; Z88.8 Allergy status to other drugs, medicaments and biological substances; Z90.49 Acquired absence of other specified parts of digestive tract
CPT/HCPCS: 45385; 45381; 43249; 43245; 88305; C1726; J2704

== ENCOUNTER → 2023-09-22 09:01 | Outpatient (BNV) | payer MEDICARE, BC, SELFPAY | PROVIDERS: PCP Internal Medicine; Visit Provider Internal Medicine Gastroenterology | DX: Z12.11 Encounter for screening for malignant neoplasm of colon (principal); D12.8 Benign neoplasm of rectum; K57.30 Diverticulosis of large intestine without perforation or abscess without bleeding; K64.0 First degree hemorrhoids; R13.10 Dysphagia, unspecified | CPT/HCPCS: 43249; 45381; 45385 ==

== ENCOUNTER 2023-09-24 11:14 | Outpatient (AMB) | payer MEDICARE, BC, SELFPAY ==
[2023-09-24 11:40] VITALS: BP 160/74; PULSE 78; TEMP 36.3; O2SAT 92; BMI 33.1
--- NOTE | 2023-09-24 11:40 | MHC.OFFVIS ---
Intake Vital Signs 09/24/23 11:40 Height 5 ft Weight 169 lb 6.4 oz BMI 33.1 BP 160/74 H Blood Pressure Location Rt brachial Position Sitting Pulse 78 Pulse Source Pulse Oximeter Temp 97.4 F Temp Source Tympanic Pulse Oximetry (%) 92 Oxygen Delivery Method Room Air Intake Visit Reasons: OV Hernia - Dr. Salinas Ref Allergies alendronate sodium [From FOSAMAX] Allergy (Unknown, Verified 09/24/23 12:17) JOINT PAIN ibuprofen [From MOTRIN] Allergy (Unknown, Verified 09/24/23 12:17) HAND SWELLING Sulfa (Sulfonamide Antibiotics) [SULFA(SULFONAMIDE ANTIBIOTICS)] Allergy (Unknown, Verified 09/24/23 12:17) RASH, unknown sulfamethoxazole [From Bactrim] Allergy (Unknown, Verified 09/24/23 12:17) Unknown trimethoprim [From Bactrim] Allergy (Unknown, Verified 09/24/23 12:17) Unknown simvastatin Adverse Reaction (Unknown, Verified 09/24/23 12:17) leg cramps Medication List - Last Reconciled 09/24/23 by Ori Buck MD ezetimibe 10 mg PO DAILY 90 days fluoxetine 10 mg PO DAILY 90 days lisinopril 20 mg PO DAILY 90 days HPI HPI Comments History of Present Illness Details Patient went for routine EGD and colonoscopy by Dr. Salinas. She did not have any urgent symptoms although she did say that recently she had noticed black stool and some occasional difficulty swallowing even her saliva which however resolved. Colonoscopy revealed a benign tubular adenoma which was removed EGD revealed a normal esophagela location but inability to negotiate the scope in the pylorus suggesting an incarcerated paraesophageal hernia [facility] Medical History (Updated 09/24/23 @ 12:41 by Ori Buck MD) Melena Osteopenia Osteoarthritis Morbid obesity Lipid disorder Hypertension, essential Anxiety, generalized Surgical History (Updated 09/24/23 @ 12:50 by Ori Buck MD) Hx of needle biopsy History of partial cystectomy History of esophagogastroduodenoscopy (EGD) History of colonoscopy History of tubal ligation Hx of cholecystectomy Family History Other Mental health disorder Substance use disorder Social History Housing: Apartment Alcohol intake: current Alcohol intake frequency: does not drink Alcohol type: beer and wine Patient Tobacco Use Status: Never used Tobacco e-Cigarette/Vaping Use: Never Used Second Hand Smoke Exposure: No service: No Current occupational status: retired Cognitive needs: No Hearing needs: No Vision needs: Yes Physical Exam Vital Signs: Last Vital Signs Temp 97.4 F 09/24/23 11:40 Pulse 78 09/24/23 11:40 BP 160/74 H 09/24/23 11:40 Pulse Ox 92 09/24/23 11:40 Oxygen Delivery Method Room Air 09/24/23 11:40 BMI result Body Mass Index 33.1 GI Inspection: Yes normal to inspection (Gynecoid body habitus), Yes incision (well healed) and Yes obesity Palpation (GI): Soft to palpation Extrem Right lower extremity: normal to inspection Left lower extremity: normal to inspection Assessment & Plan Assessment & Plan (1) Obesity: Code(s): E66.9 - Obesity, unspecified Qualifiers: Obesity type: due to excess calories Obesity classification: adult class 1 (BMI 30 - 34.9) Serious obesity comorbidity presence: with serious comorbidity Body mass index: BMI 33.0-33.9 Qualified Code(s): E66.09 - Other obesity due to excess calories; Z68.33 - Body mass index [BMI] 33.0-33.9, adult (2) Paraesophageal hernia: Code(s): K44.9 - Diaphragmatic hernia without obstruction or gangrene Plan I discussed with the patient the different types of diaphragmatic hernias and we suspect the presence of a paraesohageal hernia. The next step would be to get a CT chest/abdomen/pelvis to confirm the diagnosis. Once the diagnosis is confirmed, I will proceed with a cardiac (stress test and echo) and pulmonary w/up (PFTs) in preparation of laparoscopic paraesophageal hernia repair. The patient is in agreement with this plan. The patient will be seen again for preoperative instructions. Orders: Orders CT chest wo IV con Today K44.0 - Diaphragmatic hernia with obstruction, without gangrene Insulin Today K44.9 - Diaphragmatic hernia without obstruction or gangrene, K92.1 - Melena Complete Blood Count Auto Diff Today K44.9 - Diaphragmatic hernia without obstruction or gangrene, K92.1 - Melena Comprehensive Met. Panel Today K44.9 - Diaphragmatic hernia without obstruction or gangrene, K92.1 - Melena TSH reflex Free T4 Today K44.9 - Diaphragmatic hernia without obstruction or gangrene, K92.1 - Melena Ferritin Today K44.9 - Diaphragmatic hernia without obstruction or gangrene, K92.1 - Melena Vitamin D 25-OH Total Today K44.9 - Diaphragmatic hernia without obstruction or gangrene, K92.1 - Melena IRON PROFILE Today K44.9 - Diaphragmatic hernia without obstruction or gangrene, K92.1 - Melena CT abdomen pelvis w IV con Today K44.0 - Diaphragmatic hernia with obstruction, without gangrene Hemoglobin A1c Today K44.9 - Diaphragmatic hernia without obstruction or gangrene, K92.1 - Melena C Reactive Protein Today K44.9 - Diaphragmatic hernia without obstruction or gangrene, K92.1 - Melena Lipid Panel Today K44.9 - Diaphragmatic hernia without obstruction or gangrene, K92.1 - Melena Vitamin B12 and Folate Today K44.9 - Diaphragmatic hernia without obstruction or gangrene, K92.1 - Melena Vitamin B1 Today K44.9 - Diaphragmatic hernia without obstruction or gangrene, K92.1 - Melena Vitamin A Today K44.9 - Diaphragmatic hernia without obstruction or gangrene, K92.1 - Melena Zinc Today K44.9 - Diaphragmatic hernia without obstruction or gangrene, K92.1 - Melena Coding Level of Care Code New Pt Level 4 (44194) Diagnoses Class 1 obesity due to excess calories with serious comorbidity and body mass index (BMI) of 33.0 to 33.9 in adult E66.09; Z68.33 Obesity type: due to excess calories Obesity classification: adult class 1 (BMI 30 - 34.9) Serious obesity comorbidity presence: with serious comorbidity Body mass index: BMI 33.0-33.9 Paraesophageal hernia K44.9 Time Spent (min) 45
== END 2023-09-24 12:49 | disposition home or self-care (01) ==
PROVIDERS: PCP Internal Medicine; Visit Provider Surgery
DX: E66.09 Other obesity due to excess calories (principal); Z68.33 Body mass index [BMI] 33.0-33.9, adult; K44.9 Diaphragmatic hernia without obstruction or gangrene
CPT/HCPCS: 99204

== ENCOUNTER → 2023-09-24 11:14 | Outpatient (BNVA) | payer MEDICARE, BC, SELFPAY | PROVIDERS: PCP Internal Medicine; Visit Provider Surgery | DX: E66.09 Other obesity due to excess calories (principal); K44.9 Diaphragmatic hernia without obstruction or gangrene; Z68.33 Body mass index [BMI] 33.0-33.9, adult | CPT/HCPCS: 99202 ==

== ENCOUNTER 2023-09-25 09:12 | Outpatient (REF) | payer MEDICARE, BC, SELFPAY ==
[2023-09-25 11:52] LABS: Alanine Aminotransferase 9 U/L (0-31); Albumin Level 4.2 g/dL (3.5-5.0); Alkaline Phosphatase 44 U/L (39-117); Anion Gap 13 (12-20); Aspartate Amino Transferase 17 U/L (5-31); Bilirubin Total 0.7 mg/dL (0.0-1.0); Blood Urea Nitrogen 15 mg/dL (9-16); C Reactive Protein 0.92 mg/dL (< or = 0.50); Calcium 9.2 mg/dL (8.4-10.2); Carbon Dioxide 27 mmol/L (22-29); Chloride 107 mmol/L (96-108); Cholesterol 149 mg/dL (<200); Estimated Glomerular Filt Rate > 60; Glucose Random 91 mg/dL (60-115); HDL Cholesterol 48 mg/dL (>40); Iron 128 mcg/dL (30-160); LDL Cholesterol Calculated 79 mg/dL (<100); Percent Iron Saturation 51 % (15-50); Sodium 143 mmol/L (135-145); Total Iron Binding Capacity 250 mcg/dL (228-428); Total Protein 6.5 g/dL (6.5-8.0); Triglycerides 112 mg/dL (<150); Unsaturated Iron Binding 122 ug/dL
[2023-09-25 12:14] LABS: Ferritin 64 ng/mL (10-250); Insulin 7 uU/mL (2-29); TSH reflex Free T4 1.46 uIU/mL (0.32-4.0); Vitamin D 25-OH Total 46.2 ng/mL (>30)
[2023-09-30 03:39] LABS: Zinc 77 mcg/dL (60-130)
[2023-09-30 06:04] LABS: Vitamin A 36 mcg/dL (38-98)
[2023-10-01 12:34] LABS: Vitamin B1 9 nmol/L (8-30)
== END 2023-09-25 09:13 | disposition home or self-care (01) ==
LOC: HO.HMGCLDS 09:12
PROVIDERS: PCP Internal Medicine; Visit Provider Surgery
DX: K44.9 Diaphragmatic hernia without obstruction or gangrene (principal); K92.1 Melena
CPT/HCPCS: 36415; 80053; 80061; 82306; 82607; 82728; 82746; 83036; 83525; 83540; 84425; 84443; 84590; 84630; 85025; 86140

== ENCOUNTER 2023-09-27 10:46 | Outpatient (REF) | payer MEDICARE, BC, SELFPAY ==
--- NOTE | ~2023-09-27 | CT_ITS ---
EXAMINATION: CT CHEST, ABDOMEN AND PELVIS WITH CONTRAST CLINICAL INFORMATION: Diaphragmatic hernia. COMPARISON: None available. TECHNIQUE: Multidetector volumetric imaging was performed of the chest, abdomen and pelvis following administration of 85 mL Omnipaque 350 intravenous contrast. Oral contrast was administered. Sagittal and coronal reformatted images were obtained on the technologist's workstation. This CT examination was performed using dose optimization techniques as appropriate, variously including the following: *Automated exposure control *Adjustment of mA and/or kV according to patient size (this includes techniques or standardized protocols for targeted exams where dose is matched to indication/reason for exam; i.e. extremities or head) *Use of iterative reconstruction technique DLP: 542.45 mGy-cm FINDINGS: CHEST: LUNGS: No suspicious pulmonary nodule. No focal consolidation. Central airways are patent. PLEURA: No pleural effusion. MEDIASTINUM: Precarinal lymph node measures 1.9 x 3.1 cm. No hilar lymphadenopathy. Great vessels are of normal caliber. Heart size is normal. No pericardial effusion. CORONARY ARTERY CALCIFICATION: Mild. CHEST WALL/AXILLA: No axillary or internal mammary lymphadenopathy. ABDOMEN AND PELVIS: ABDOMINAL AND PELVIC WALL: Unremarkable. LIVER AND BILIARY TREE: Unremarkable. GALLBLADDER: Not visualized. PANCREAS: Unremarkable. SPLEEN: Unremarkable. ADRENAL GLANDS: Unremarkable. KIDNEYS AND URETERS: Unremarkable. GASTROINTESTINAL TRACT: Possible organoaxial volvulus. No evidence of obstruction. Wall thickening and coning of the cecal apex. The terminal ileum is unremarkable. No small bowel obstruction. Diverticular disease of the colon. VASCULAR: Normal caliber abdominal aorta. LYMPH NODES: No bulky lymphadenopathy. FREE FLUID: No free fluid. BLADDER: Unremarkable. PELVIC VISCERA: Unremarkable. OSSEOUS STRUCTURES: Marked multilevel degenerative disc disease in the lumbar spine. CT/CT abdomen pelvis w IV con IMPRESSION: Wall thickening and coning of the cecal apex. This finding may be seen in infectious and inflammatory processes of the cecum. Clinical correlation is advised.
[2023-09-28 07:06] LABS: Creatinine POC 0.8 mg/dL (0.5-1.4); GFR POC > 60
== END 2023-09-27 10:47 | disposition home or self-care (01) ==
LOC: HO.CT 10:46
PROVIDERS: PCP Internal Medicine; Visit Provider Surgery
DX: K44.0 Diaphragmatic hernia with obstruction, without gangrene (principal)
CPT/HCPCS: 71250; 74177; 82565; Q9967

== ENCOUNTER → 2023-10-04 09:22 | Outpatient (REF) | payer MEDICARE, BC, SELFPAY ==
--- NOTE | 2023-10-04 09:26 | ECG_ITS ---
Test Reason : PRE OP HERNIA Blood Pressure : / mmHG Vent. Rate : 060 BPM Atrial Rate : 060 BPM P-R Int : 156 ms QRS Dur : 086 ms QT Int : 400 ms P-R-T Axes : 056 -10 039 degrees QTc Int : 400 ms Normal sinus rhythm Nonspecific ST and T wave abnormality Abnormal ECG When compared with ECG of 09-JAN-2005 09:32, ST now depressed in Anterior leads Nonspecific T wave abnormality now evident in Anterior leads Referred By: Ori Buck Electronically Signed By:JEANNA SANTAMARIA
--- NOTE | 2023-10-04 09:26 | CA_ITS ---
Transthoracic Echocardiogram Patient (Last, First, Middle): Geovanna Felder, Gender: Female Date of : 1955 Age: 68 Procedure Date: 10/04/2023 Procedure Type: Transthoracic Echocardiogram Location: OP Height: 152.4 cm Weight: 76.66 kg BSA: 1.74 m2 Heart Rate: bpm BP: 138 / 80 mmHg [employer] Worker: HILDA Referring MD: Ori Buck MD Symptoms: K44.9 - Diaphragmatic hernia without obstruction or gangrene Study Quality: Adequate ECG Rhythm: Sinus Conclusions: - The left ventricular systolic function is normal. The calculated ejection fraction is 59% by biplane method. - No obvious valvular pathology seen on this study. - There is mild dilatation of the ascending aorta measuring 3.70 cm. Findings Left Ventricle Normal left ventricular cavity size. There is normal left ventricular wall thickness. The left ventricular systolic function is normal. The calculated ejection fraction is 59% by biplane method. There is no evidence of regional wall motion abnormalities. Diastolic function is normal for age. LV peak GLS -19.4%. Right Ventricle Normal right ventricular cavity size. There is low normal right ventricular systolic function. Atria The left atrium is mildly dilated. The right atrium is normal in size. Aortic Valve There is a doming trileaflet aortic valve. There is no aortic valve stenosis. There is no aortic valve regurgitation. Mitral Valve The mitral valve appears normal. There is no mitral valve regurgitation. There is no mitral valve stenosis. Pulmonic Valve The pulmonic valve is likely normal. Tricuspid Valve There is mild tricuspid valve regurgitation. There is no evidence of pulmonary hypertension. Great Vessels The aortic arch is normal in size. There is mild dilatation of the ascending aorta measuring 3.70 cm. Venous The inferior vena cava is normal in size and collapses greater than 50% with inspiration. Pericardium/Pleural There is no evidence of pericardial effusion. Prior Study Comparison No prior study available for comparison. Recommendations, Care & Conclusions No obvious valvular pathology seen on this study. Measurements 2D Linear Measurements IVSd: 0.98 0.6-0.9/0.6-1.0 cm LVIDd: 3.73 3.9-5.3/4.2-5.9 cm LVIDd Index: 2.14 2.4-3.2/2.2-3.1 cm/m2 LVIDs: 2.45 2.0-3.6 cm LVPWd: 0.91 0.7-1.1 cm LA Diam: 2.50 2.7-3.8/3.0-4.0 cm LAIDs Index: 1.44 1.5-2.3 cm/m2 LV Mass: 130.73 67-162/88-224 g LV Mass Index: 75.13 43-95/49-115 g/m2 LVOT Diam: 1.80 3.0+(-)1.3 cm 2D Systolic Function EF 4C: 58.10 >55% EF 2C: 60.60 >55% EF BiP: 58.80 >55% Mitral Valve MV Pk E: 0.80 MV PK A: 0.71 MV Decel Time: 190.00 E/A: 1.10 E'Lateral: 7.62 E'Medial: 7.18 E/E' Med: 11.10 E/E' Lat: 10.50 PHT: 56.00 MVA PHT: 3.93 Decel Baca: 4.20 Aortic Valve AoV Pk Cheo: 1.49 AoV Mn Cheo: 0.93 AoV VTI: 0.34 AoV Pk Grad: 9.00 Aov Mn Grad: 4.00 ENDY Cont.VTI: 1.97 LVOT LVOT Pk Cheo: 1.24 LVOT Mn Cheo: 0.76 LVOT VTI: 0.26 LVOT Pk Grad: 6.00 LVOT Mn Grad: 3.00 LVOT Diam: 1.80 LVOT Area: 2.54 Diastolic Function MV Pk E: 0.80 MV Pk A: 0.71 E/A: 1.10 E'Medial: 7.18 E/E' Med: 11.10 E' Laterial: 7.62 E/E' Lat: 10.50 Right Ventricle TAPSE (mm): 19.20 TVS' Cheo: 9.90 Tricuspid Valve TR Pk Cheo: 2.13 TR Pk Grad: 18.00 RA Press: 3.00 RVSP: 21.00 Great Vessels Aorta Sinus of Valsalva: 2.57 2.0-3.[address] Ridge: 2.37 1.7-3.4 cm Ao Asc: 3.70 2.1-3.4 cm Ao Arch: 3.10 Updated in Other Vendor System with Status of Final Quang Ghotra MD electronically signed on 10/05/2023 12:55:44 PM with status of Final
== END ==
LOC: HO.CARD 09:22
PROVIDERS: PCP Internal Medicine; Visit Provider Surgery
DX: K44.9 Diaphragmatic hernia without obstruction or gangrene (principal)
CPT/HCPCS: 93005; 93306; 93356

== ENCOUNTER → 2023-10-04 09:26 | Outpatient (BNV) | payer MEDICARE, BC, SELFPAY | PROVIDERS: PCP Internal Medicine; Visit Provider Internal Medicine | DX: I36.1 Nonrheumatic tricuspid (valve) insufficiency (principal) | CPT/HCPCS: 93010; 93306 ==

== ENCOUNTER 2023-10-06 10:11 | Outpatient (AMB) | payer MEDICARE, BC, SELFPAY ==
--- NOTE | 2023-10-06 10:22 | MHC.OFFVIS ---
Intake Vital Signs 10/06/23 10:23 Height 5 ft Weight 167 lb 8.821 oz BMI 32.7 BP 111/67 Blood Pressure Location Lt brachial Position Sitting Pulse 64 Intake Visit Reasons: s/p egd/colon Intake Note: Patient returns to in office postoperative follow up s/p EGD and colonoscopy. CC: Patient underwent colonoscopy and EGD with Dr. Salinas on 09/22/23. Per patient she was found to have a hiatal hernia and will have surgery to correct it. Naturopathic Oncology Provider Required: No Accompanied by: Self / Same As Patient Allergies alendronate sodium [From FOSAMAX] Allergy (Unknown, Verified 10/06/23 10:24) JOINT PAIN ibuprofen [From MOTRIN] Allergy (Unknown, Verified 10/06/23 10:24) HAND SWELLING Sulfa (Sulfonamide Antibiotics) [SULFA(SULFONAMIDE ANTIBIOTICS)] Allergy (Unknown, Verified 10/06/23 10:24) RASH, unknown sulfamethoxazole [From Bactrim] Allergy (Unknown, Verified 10/06/23 10:24) Unknown trimethoprim [From Bactrim] Allergy (Unknown, Verified 10/06/23 10:24) Unknown simvastatin Adverse Reaction (Unknown, Verified 10/06/23 10:24) leg cramps PFSH Medical History Melena Osteopenia Osteoarthritis Morbid obesity Lipid disorder Hypertension, essential Anxiety, generalized Surgical History Hx of needle biopsy History of partial cystectomy History of esophagogastroduodenoscopy (EGD) History of colonoscopy History of tubal ligation Hx of cholecystectomy Family History Other Mental health disorder Substance use disorder Social History Housing: Apartment Alcohol intake: current Alcohol intake frequency: does not drink Alcohol type: beer and wine Patient Tobacco Use Status: Never used Tobacco e-Cigarette/Vaping Use: Never Used Second Hand Smoke Exposure: No service: No Current occupational status: retired Cognitive needs: No Hearing needs: No Vision needs: Yes Coding
[2023-10-06 10:23] VITALS: BP 111/67; PULSE 64; BMI 32.7
--- NOTE | 2023-10-06 10:23 | A.OFFVIS_ITS ---
Intake Vital Signs 3 10/06/23 10:23 Height 5 ft Weight 167 lb 8.821 oz BMI 32.7 BP 111/67 Blood Pressure Location Lt brachial Position Sitting Pulse 64 Intake Visit Reasons: s/p egd/colon Allergies alendronate sodium [From FOSAMAX] Allergy (Unknown, Verified 10/06/23 10:24) JOINT PAIN ibuprofen [From MOTRIN] Allergy (Unknown, Verified 10/06/23 10:24) HAND SWELLING Sulfa (Sulfonamide Antibiotics) [SULFA(SULFONAMIDE ANTIBIOTICS)] Allergy (Unknown, Verified 10/06/23 10:24) RASH, unknown sulfamethoxazole [From Bactrim] Allergy (Unknown, Verified 10/06/23 10:24) Unknown trimethoprim [From Bactrim] Allergy (Unknown, Verified 10/06/23 10:24) Unknown simvastatin Adverse Reaction (Unknown, Verified 10/06/23 10:24) leg cramps HPI s/p egd/colon 2 HPI0 Details Assessment & Plan (1) Pre-op examination: Code(s): Z01.818 - Encounter for other preprocedural examination Plan: She had a negative colonoscopy [place] [address] Bustillo. She has IBD-M at her baseline, no upper GI problems except with dysphagia if she eats too fast. She feels solid food gets stuck at the GE jxn. This is especially true with rice. There are no prior problems with anesthesia or sedation. She denies any cardiac or respiratory problems. No ID problems. Her mother had colon polyps removed. EGD/colonoscopy to investigate her dysphagia along with her screening colonoscopy. ROV procedures (2) Dysphagia: Code(s): R13.10 - Dysphagia, unspecified (3) Family history of polyps in the colo n: Code(s): Z83.71 - Family history of colonic polyps Orders: Orders EGD/[place] Combo - G I Use Only Today R13.10 - Dysphagia , unspecified Medications: New peg 3350-electroly darius 236-22.74-6.74 -5.86 gram (Golyt ora) until feca l effluent is tl r; do not exceed a total volume of 2 ,000 mL 240 mL PO Q10M 1 day 4,000 mL 0RF Z12.11 - Encounter for screening for malignant neoplas m of colon EGD/COLONOSCOPY: 09/22/23 Findings: Larynx:normal Esophagus: GE junction at 36 cm, diaphragm hiatus at 36 cm, normal mucosa --balloon dilation done at the GEJ to 18 mm, no tears seen, Stomach: Patient had a large paraesophgeal hernia, and the scope was looping in the hernia so unable to advance further to the antrum Duodenum: unable to enter Intervention: balloon dilation Findings: Terminal Ileum-normal Cecum:normal Ascending Colon: normal Transverse Colon -normal Descending Colon:normal Sigmoid Colon:moderate diverticulosis Rectum: Retroflexion with small internal hemorrhoids, grade I, In the mid rectum there was a large sessile polyp about 15-17 mm. This was lifted with eleview injection and then removed piece meal with hot snare- x 2 ultra clips applied for hemostasis. Anorectum - normal Impression and Post Procedure Diagnosis: Endoscopy Findings: para esophgeal hernia, large Colonoscopy Findings: polyp internal hemorrhoids diverticular disease Plan: Await Pathology results Repeat Colonoscopy in 6-12 months or earlier if clinically indicated High fiber diet leaflet avoid straining at stool, epsom salts and sitz bath, anusol supps or cream Refer for surgical repair for hernia--she is symptomatic with dysphagia. BIOPSY Received: 09/22/23 Diagnosis Colon, rectal polyp: Tubulovillous adenoma (multiple pieces involved, cannot evaluate margin); negative for high-grade dysplasia and carcinoma TODAY'S VISIT She tolerated the procedure well. The dilation has helped somewhat with the swallowing and the regurg. She has already seen the surgeon for repair of the large paraesophageal hernia. She is seeing Dr. Dubose for this. She is agreeable to a 1 year colonoscopy repeat for the TVA. I have sent a note to the schedulers for this. ROV after colonoscopy in 1 year. [facility] Medical History Melena Osteopenia Osteoarthritis Morbid obesity Lipid disorder Hypertension, essential Anxiety, generalized Surgical History Hx of needle biopsy History of partial cystectomy History of esophagogastroduodenoscopy (EGD) History of colonoscopy History of tubal ligation Hx of cholecystectomy Family History Other Mental health disorder Substance use disorder Social History Housing: Apartment Alcohol intake: current Alcohol intake frequency: does not drink Alcohol type: beer and wine Patient Tobacco Use Status: Never used Tobacco e-Cigarette/Vaping Use: Never Used Second Hand Smoke Exposure: No service: No Current occupational status: retired Cognitive needs: No Hearing needs: No Vision needs: Yes Review of Systems Const Denies fatigue, Denies fever(s), Denies night sweats, Denies poor appetite and Denies weight loss Eyes Details: glasses Reports requires corrective lenses ENT Reports Normal hearing present, Reports dysphagia, Denies odynophagia, Denies throat swelling and Denies tongue swelling Card Reports no additional complaints Resp Reports no additional complaints GI Denies abdominal pain, Denies melena, Denies bloating, Denies hematochezia, Denies constipation, Denies GI cramping, Reports dysphagia, Denies excessive flatus, Denies early satiety, Reports heartburn, Denies diarrhea, Denies nausea, Denies odynophagia, Denies vomiting and Denies hematemesis Skin/Breast Denies pruritus, Denies lesions, Denies rash and Denies jaundice Neuro Reports Normal hearing present and Denies Abnormal speech present Endo Denies fatigue Aller/Immun Denies throat swelling and Denies tongue swelling Physical Exam Vital Signs: Last Vital Signs Pulse 64 10/06/23 10:23 BP 111/67 10/06/23 10:23 BMI result Body Mass Index 32.7 Const General: cooperative, no acute distress, well developed and well groomed Nutritional Appearance: well nourished and obese Orientation/consciousness: oriented to person, oriented to place and oriented to time Limitations: No language barrier HEENT Head: Yes normocephalic and Yes atraumatic Eyes General: appearance normal, both eyes and all related structures Pupils: Equal, round and reactive pupils present Neck Neck: Yes normal visual inspection and Yes no lymphadenopathy Thyroid: Thyroid normal Resp Effort & Inspection: normal respiratory effort and able to speak in complete sentences Auscultation: clear to auscultation bilaterally Cardio Rate: regular rate Rhythm: regular rhythm Heart sounds: Normal, physiologic split S2 sound present Peripheral pulses: radial pulses present and posterior tibial pulses present GI Inspection: No distended, Yes Abdominal panniculus present, Yes obesity and Yes scar Palpation (GI): Soft to palpation, nontender, no guarding, not rigid and No hepatosplenomegaly present Percussion: Yes normal to percussion Auscultation: normal bowel sounds Rectal Exam - Female: deferred Abdomen image: 2 1. Surgical scar Skin General skin exam: no rashes or lesions noted, turgor normal, skin not dry, no jaundice, No spider nevi and no striae Rashes: no rashes Nails: normal Neuro General: oriented to person, oriented to place and oriented to time Cranial nerves: Yes Equal, round and reactive pupils present and Yes Normal hearing present Speech: No Abnormal speech present Extrem General: Yes normal to inspection, No clubbing, No cyanosis and No edema Psych Appearance: grossly normal and well kempt Mental Status: mental status grossly normal Speech and movement: Normal speech and movement present Affect: normal affect Attitude: cooperative Thought process: Normal thought process present and not confabulating Thought content: Normal thought content present Insight: Fair insight present (Psych) Judgement: Fair judgement present (Psych) Results Reviewed Results Reviewed: EGD/COLONOSCOPY: 09/22/23 Findings: Larynx:normal Esophagus: GE junction at 36 cm, diaphragm hiatus at 36 cm, normal mucosa --balloon dilation done at the GEJ to 18 mm, no tears seen, Stomach: Patient had a large paraesophgeal hernia, and the scope was looping in the hernia so unable to advance further to the antrum Duodenum: unable to enter Intervention: balloon dilation Findings: Terminal Ileum-normal Cecum:normal Ascending Colon: normal Transverse Colon -normal Descending Colon:normal Sigmoid Colon:moderate diverticulosis Rectum: Retroflexion with small internal hemorrhoids, grade I, In the mid rectum there was a large sessile polyp about 15-17 mm. This was lifted with eleview injection and then removed piece meal with hot snare- x 2 ultra clips applied for hemostasis. Anorectum - normal Impression and Post Procedure Diagnosis: Endoscopy Findings: para esophgeal hernia, large Colonoscopy Findings: polyp internal hemorrhoids diverticular disease Plan: Await Pathology results Repeat Colonoscopy in 6-12 months or earlier if clinically indicated High fiber diet leaflet avoid straining at stool, epsom salts and sitz bath, anusol supps or cream Refer for surgical repair for hernia--she is symptomatic with dysphagia. BIOPSY Received: 09/22/23 Diagnosis Colon, rectal polyp: Tubulovillous adenoma (multiple pieces involved, cannot evaluate margin); negative for high-grade dysplasia and carcinoma Assessment & Plan Assessment & Plan (1) Tubulovillous adenoma of colon: Comment: 09/2023 SCOPE REPEAT IN 1 YEAR Code(s): D12.6 - Benign neoplasm of colon, unspecified (2) Paraesophageal hernia: Code(s): K44.9 - Diaphragmatic hernia without obstruction or gangrene (3) Family history of polyps in the colon: Code(s): Z83.71 - Family history of colonic polyps (4) Dysphagia: Code(s): R13.10 - Dysphagia, unspecified Plan She tolerated the procedure well. The dilation has helped somewhat with the swallowing and the regurg. She has already seen the surgeon for repair of the large paraesophageal hernia. She is seeing Dr. Dubose for this. She is agreeable to a 1 year colonoscopy repeat for the TVA. I have sent a note to the schedulers for this. ROV after colonoscopy in 1 year. Coding Level of Care Code Est Pt Level 4 (11053) Diagnoses Tubulovillous adenoma of colon D12.6 Paraesophageal hernia K44.9 Family history of polyps in the colon Z83.71 Dysphagia R13.10 Time Spent (min) 31
== END 2023-10-06 11:02 | disposition home or self-care (01) ==
PROVIDERS: PCP Internal Medicine; Visit Provider Nurse Practitioner
DX: D12.6 Benign neoplasm of colon, unspecified (principal); K44.9 Diaphragmatic hernia without obstruction or gangrene; Z83.71 Family history of colonic polyps; R13.10 Dysphagia, unspecified
CPT/HCPCS: 99214

== ENCOUNTER → 2023-10-06 10:11 | Outpatient (BNVA) | payer MEDICARE, BC, SELFPAY | PROVIDERS: PCP Internal Medicine; Visit Provider Nurse Practitioner | DX: K57.30 Diverticulosis of large intestine without perforation or abscess without bleeding (principal); D12.6 Benign neoplasm of colon, unspecified; K64.0 First degree hemorrhoids; K44.9 Diaphragmatic hernia without obstruction or gangrene; R13.10 Dysphagia, unspecified; Z83.719 Family history of colon polyps, unspecified; Z98.890 Other specified postprocedural states | CPT/HCPCS: 99212 ==

== ENCOUNTER → 2023-10-07 08:49 | Outpatient (REF) | payer MEDICARE, BC, SELFPAY ==
--- NOTE | ~2023-10-07 | NM_ITS ---
Lexiscan Myocardial perfusion study Indication: Preoperative cardiac evaluation Technique: The patient was brought in for a Lexiscan perfusion study on 10/07/2023 and was injected 0.4 mg of Lexiscan intravenously. Within a minute of this injection 25 mCi of sestamibi was given intravenously. Images were obtained using the SPECT gamma camera interlaced with the gating device. Images were obtained in supine position. Resting perfusion study was performed on 10/08/2023. Patient was administered 25 mCi of sestamibi intravenously at rest. Images were then obtained in supine position. Images were processed with the software and compared side to side in short axis, horizontal long axis and vertical long axis views. Total DLP 107mGy-cm. Findings: Raw acquisition reviewed. The stress perfusion study showed no significant perfusion abnormality. Both uncorrected as well as CT attenuation corrected images were reviewed. The gated study shows normal LV systolic function with calculated LVEF of 74%. LV cavity is normal in size. The gated study shows normal wall thickening and contraction of segments. Resting study shows no significant perfusion abnormality. Gating at rest reveals normal wall motion with ejection fraction at 74%. The findings are consistent with no clear reversible or fixed perfusion abnormality. NM/NM nida perf SPECT rest & str Impression: 1. Myocardial perfusion imaging study shows normal myocardial perfusion. 2. Gated LVEF is 74% during stress and 71% during rest. 3. Transient ischemic dilatation not present. EKG component of the test reported separately.
--- NOTE | 2023-10-07 08:51 | CA_ITS ---
Acquisition Time: 2023-10-07 09:10:07 Total Exercise Time: 00:02:00 Test Indications: Paraesophageal hernia Medications: See chart Protocol: LEXISCAN Max HR: 106 BPM 70% of Pred: 150 BPM Max BP: 122/074 mmHG Max Work Load: 1.0 METS Pharmacological stress test with Lexisccan injection while sitting and kicking her legs, without anginal symptoms, with isolated PVCs, with normotensive response to injection, with nondiagnosiitic EKGs. Nuclear images pending. Test reviewed with Dr. Ghotra. Referred By: Ori Buck Overread By: Holly Silva
== END ==
LOC: HO.CARD 08:49
PROVIDERS: PCP Internal Medicine; Visit Provider Surgery
DX: K44.9 Diaphragmatic hernia without obstruction or gangrene (principal)
CPT/HCPCS: 78452; 93017; A9500; J0280; J2785

== ENCOUNTER → 2023-10-07 08:51 | Outpatient (BNV) | payer MEDICARE, BC, SELFPAY | PROVIDERS: PCP Internal Medicine; Visit Provider Nurse Practitioner | DX: R07.9 Chest pain, unspecified (principal) | CPT/HCPCS: 78452; 93016; 93018 ==

== ENCOUNTER 2023-10-08 09:28 | Outpatient (REF) | payer MEDICARE, BC, SELFPAY ==
--- NOTE | 2023-10-08 11:32 | PFT_ITS ---
Flows: FEV1: 84 % of predicted at 1.60 L FVC: 87 % of predicted at 2.13 L FEV1/FVC: 75 % Bronchodilator response: Absent Volumes: Total lung capacity: 72 % of predicted at 3.11 L Residual volume: 58 % of predicted at 0.99 L Slow vital capacity: 82 % of predicted at 2.13 L Expiratory reserve volume: 143 % of predicted at 0.85 L Diffusion capacity: Moderately decreased, corrects to normal after adjustment for alveolar ventilation. Impression: Mild restrictive ventilatory defect with no bronchodilator response. Combination of restrictive ventilatory defect with decreased diffusion capacity suggests underlying pulmonary parenchymal disease. Clinical correlation is advised. MTDD
== END 2023-10-08 09:29 | disposition home or self-care (01) ==
LOC: HO.RESP 09:28
PROVIDERS: PCP Internal Medicine; Visit Provider Surgery
DX: K44.9 Diaphragmatic hernia without obstruction or gangrene (principal)
CPT/HCPCS: 94010; 94727; 94729

== ENCOUNTER → 2023-10-08 11:32 | Outpatient (BNV) | payer MEDICARE, BC, SELFPAY | PROVIDERS: PCP Internal Medicine; Visit Provider Internal Medicine Pulmonary Disease | DX: Z01.811 Encounter for preprocedural respiratory examination (principal) | CPT/HCPCS: 94060; 94727; 94729 ==

== ENCOUNTER 2023-10-13 11:15 | Outpatient (REF) | payer MEDICARE, BC, SELFPAY ==
[2023-10-13 13:44] LABS: MANUAL DIFF FLAG NO
[2023-10-13 14:06] LABS: Basophils Absolute Auto 0.1 X10*3/uL (0.0-0.2); Basophils Percent Auto 0.6 % (0-2); Eosinophils Absolute Auto 0.1 X10*3/uL (0.0-0.4); Eosinophils Percent Auto 0.5 % (0-4); Hemoglobin 13.5 g/dl (12.0-16.0); Imm Gran Abs Auto 0.05 X10*3/uL (0.00-0.03); Imm Gran Pct Auto 0.5 % (0.0-0.4); Lymphocytes Absolute Auto 1.2 X10*3/uL (1.2-4.9); Lymphocytes Percent Auto 11.6 % (20-40); Mean Corpuscular HGB Conc 32.1 g/dl (31.0-35.0); Mean Corpuscular Hemoglobin 32.2 pg (27.0-33.0); Mean Corpuscular Volume 100.2 fL (80.0-98.0); Mean Platelet Volume 10.4 fL (9.4-12.3); Monocytes Absolute Auto 0.5 X10*3/uL (0.1-1.2); Monocytes Percent Auto 4.7 % (2-11); Neutrophils Absolute Auto 8.1 x10*3/uL (2.0-8.3); Neutrophils Percent Auto 82.1 % (45-73); Platelet Count 283 X10*3/uL (160-400); Red Blood Count 4.19 X10*6/uL (4.20-5.50); White Blood Count 9.9 X10*3/uL (4.8-10.8)
[2023-10-13 14:18] LABS: Alanine Aminotransferase 9 U/L (0-31); Albumin Level 4.3 g/dL (3.5-5.0); Alkaline Phosphatase 44 U/L (39-117); Anion Gap 13 (12-20); Aspartate Amino Transferase 15 U/L (5-31); Bilirubin Total 0.6 mg/dL (0.0-1.0); Blood Urea Nitrogen 14 mg/dL (9-16); Calcium 9.3 mg/dL (8.4-10.2); Carbon Dioxide 26 mmol/L (22-29); Chloride 105 mmol/L (96-108); Cholesterol 186 mg/dL (<200); Estimated Glomerular Filt Rate 55; Glucose Fasting 103 mg/dL (60-99); HDL Cholesterol 51 mg/dL (>40); LDL Cholesterol Calculated 108 mg/dL (<100); Sodium 140 mmol/L (135-145); Total Protein 6.7 g/dL (6.5-8.0); Triglycerides 136 mg/dL (<150)
[2023-10-13 14:36] LABS: TSH reflex Free T4 1.85 uIU/mL (0.32-4.0)
[2023-10-13 14:42] LABS: Vitamin B12 268 pg/mL (200-900)
[2023-10-19 13:54] LABS: Vitamin D 25-OH, D2 <4 ng/mL; Vitamin D 25-OH, D3 41 ng/mL; Vitamin D 25-OH, Total 41 ng/mL (30-100)
== END 2023-10-13 11:16 | disposition home or self-care (01) ==
LOC: HO.HMGCLDS 11:15
PROVIDERS: PCP Internal Medicine; Visit Provider Internal Medicine
DX: I10 Essential (primary) hypertension (principal); F41.1 Generalized anxiety disorder; E78.9 Disorder of lipoprotein metabolism, unspecified; E66.01 Morbid (severe) obesity due to excess calories; M19.90 Unspecified osteoarthritis, unspecified site; M85.80 Other specified disorders of bone density and structure, unspecified site; M41.9 Scoliosis, unspecified
CPT/HCPCS: 36415; 80053; 80061; 82306; 82607; 84443; 85025

== ENCOUNTER 2023-11-01 08:17 | Outpatient (AMB) | payer MEDICARE, BC, SELFPAY ==
--- NOTE | 2023-11-01 14:59 | MHC.OFFVISWM ---
Intake VS Expanded 11/01/23 15:04 Height 5 ft Weight 161 lb BMI 31.4 Intake Visit Reasons: TV Pre Op Paraesophageal Hernia 11/09/23 Allergies alendronate sodium [From FOSAMAX] Allergy (Unknown, Verified 11/01/23 14:59) JOINT PAIN ibuprofen [From MOTRIN] Allergy (Unknown, Verified 11/01/23 14:59) HAND SWELLING Sulfa (Sulfonamide Antibiotics) [SULFA(SULFONAMIDE ANTIBIOTICS)] Allergy (Unknown, Verified 11/01/23 14:59) RASH, unknown sulfamethoxazole [From Bactrim] Allergy (Unknown, Verified 11/01/23 14:59) Unknown trimethoprim [From Bactrim] Allergy (Unknown, Verified 11/01/23 14:59) Unknown simvastatin Adverse Reaction (Unknown, Verified 11/01/23 14:59) leg cramps Medication List - Last Reconciled 11/01/23 by Ori Buck MD ezetimibe 10 mg PO DAILY 90 days fluoxetine 10 mg PO DAILY 90 days lisinopril 20 mg PO DAILY 90 days ondansetron 4 mg PO Q12H pantoprazole 40 mg PO DAILY polyethylene glycol 3350 (Miralax) 17 grams PO DAILY sucralfate 10 mL PO BID HPI TV Pre Op Paraesophageal Hernia 11/09/23 HPI Details Start time: 2.52pm, End time: 3.22pm ?I spent 25 minutes speaking with the patient on the phone plus an additional 5 minutes reviewing and updating records for a total of 30 minutes HPI Comments History of Present Illness Details Here for repair of a large paraesophageal hernia Wakes up: 9.30am, Sleeps: 11pm [facility] Medical History (Updated 11/01/23 @ 14:55 by Ori Buck MD) GERD (gastroesophageal reflux disease) Melena Osteopenia Osteoarthritis Morbid obesity Lipid disorder Hypertension, essential Anxiety, generalized Surgical History Hx of needle biopsy History of partial cystectomy History of esophagogastroduodenoscopy (EGD) History of colonoscopy History of tubal ligation Hx of cholecystectomy Family History Other Mental health disorder Substance use disorder Social History (Reviewed 10/06/23 @ 10:35 by AARON Chen Housing: Apartment Alcohol intake: current Alcohol intake frequency: does not drink Alcohol type: beer and wine Patient Tobacco Use Status: Never used Tobacco e-Cigarette/Vaping Use: Never Used Second Hand Smoke Exposure: No service: No Current occupational status: retired Cognitive needs: No Hearing needs: No Vision needs: Yes Assessment & Plan Assessment & Plan (1) Paraesophageal hernia: Code(s): K44.9 - Diaphragmatic hernia without obstruction or gangrene Plan: 1. We discussed the potential etiology of the hernia that could be of traumatic etiology worsened by his weight. We discussed the details of the diaphragmatic hernia repair and the potential technical challenges such as being able to achieve enough mobilization of the esophagus back in the abdomen and being able to close the diaphragmatic muscle (crura) primarily with sutures. We also discussed the possibility of using a biologic mesh to close the hernia defect if the crura cannot be adequately re-approximated primarily with sutures. We also discussed the option of doing a gastropexy or a fundoplication to prevent postoperative reflux and prevent hernia recurrence. As we discussed, I favor the gastropexy as the fundoplication can cause several distrurbing symptoms such as gas-bloating, flatulence, inability to burp which can be bothersome to patients especially for him with a history of IBS. Also we discussed the complexity of a potential hernia recurrence in association with a hernia recurrence. He was in agreement not to have a fundoplication. 2. Preop prescriptions were provided and explained the purpose of each one. Need to be purchased preop. Start Pantoprazole now as you get it from the pharmacy, 1 pill per day and the Sucralfate 2 teaspoons every 12 hours. The Zofran is before or after surgery as needed. 3. Bowel prep: please do 7 packets ?of Miralax mixing each one with a an 8oz glass of water, crystal light, gatorade zero, or propel ?on 11/07/23 and the same amount on 11/08/23. The Miralax you begin with one packet at a time in 8oz water or crystal light, gatorade zero, or propel ?as early in the day as you can and you do them back to back until you finish them. Continue the protein shakes during? the bowel prep. 4. Needs to purchase 1oz medicine cups . 5. Needs to purchase Children's liquid Tylenol for postop pain control. 6. Avoid aspirin, motrin, Advil, Aleve, Ibuprofen, Naproxyn. Tylenol is OK. 7. She needs to purchase the Celebrate REBUILD protein shakes from the hospital's gift shop. 8. Will do basic preop blood work-up any day between Wednesday11/02/23 and Wednesday11/05/23 fasting for 12 hours and is scheduled to see the Anesthesiologist prior to the day of surgery. 9. Importance of adherence to postop folllow-up and recommendations was underscored and she understands that. 10. Stop food and bars as of tomorrow 11/02/23 and continue with 4 Celebrate REBUILD protein shakes (ONE scoop EACH in 8oz almond milk) at 10am-12pm, 1pm-3pm, 4pm-6pm and 7pm-9pm and one more Celebrate REBUILD protein shake with TWO scoops in 8oz of almond milk at 9pm-11pm 11. No soups, broths or V8 12. The patient's?medical?history has been reviewed and they are considered low risk for post op DVT and therefore DVT prophylaxis is not considered necessary. Travel after surgery was reviewed. The patient has not disclosed any travel plans during the first 30 days after surgery and they have been advised that within the first 30 days after surgery any bus, plane, train or car travel over 2 hours in duration is contraindicated due to the possibility of developing blood clots from immobility. Any travel, needs to include periods of ambulation of 10 minutes in duration every 2 hours.? Patient was instructed to discuss any plans for travel during this period with their bariatric surgeon.? 14. Buy a blood pressure monitor and measure your blood pressure daily in the morning, If your blood pressure is: Below 120/70: do not take the Lisinopril 121/71 to 130/80: take half pill of Lisinopril Over 131/81: take one whole Lisinopril 15. Please take at the day of surgery the following medications: 16. Absolutely no smoking or vaping, or marijuana until the surgery and for at least the first 4 weeks. Only nicotine patches are allowed. 17. Avoid any steroids by mouth for any reason. Let me know if someone prescribes them to you 18. These instructions supersede anything else you read in the handbook, anything you watched in videos or classes or you were told by any other provider. If there is any conflict, you follow the above instructions and nothing else. Orders: Orders Hemoglobin A1c Today E66.01 - Morbid (severe) obesity due to excess calories, E66.9 - Obesity, unspecified, E78.9 - Disorder of lipoprotein metabolism, unspecified, K44.9 - Diaphragmatic hernia without obstruction or gangrene, K92.1 - Melena Prothrombin Time INR Today E66.01 - Morbid (severe) obesity due to excess calories, E66.9 - Obesity, unspecified, E78.9 - Disorder of lipoprotein metabolism, unspecified, K44.9 - Diaphragmatic hernia without obstruction or gangrene, K92.1 - Melena Vitamin B12 Today E66.01 - Morbid (severe) obesity due to excess calories, E66.9 - Obesity, unspecified, E78.9 - Disorder of lipoprotein metabolism, unspecified, K44.9 - Diaphragmatic hernia without obstruction or gangrene, K92.1 - Melena Partial Thromboplastin Time Today E66.01 - Morbid (severe) obesity due to excess calories, E66.9 - Obesity, unspecified, E78.9 - Disorder of lipoprotein metabolism, unspecified, K44.9 - Diaphragmatic hernia without obstruction or gangrene, K92.1 - Melena Vitamin D 25-OH Total Today E66.01 - Morbid (severe) obesity due to excess calories, E66.9 - Obesity, unspecified, E78.9 - Disorder of lipoprotein metabolism, unspecified, K44.9 - Diaphragmatic hernia without obstruction or gangrene, K92.1 - Melena Complete Blood Count Auto Diff Today E66.01 - Morbid (severe) obesity due to excess calories, E66.9 - Obesity, unspecified, E78.9 - Disorder of lipoprotein metabolism, unspecified, K44.9 - Diaphragmatic hernia without obstruction or gangrene, K92.1 - Melena Ferritin Today E66.01 - Morbid (severe) obesity due to excess calories, E66.9 - Obesity, unspecified, E78.9 - Disorder of lipoprotein metabolism, unspecified, K44.9 - Diaphragmatic hernia without obstruction or gangrene, K92.1 - Melena Comprehensive Met. Panel Today E66.01 - Morbid (severe) obesity due to excess calories, E66.9 - Obesity, unspecified, E78.9 - Disorder of lipoprotein metabolism, unspecified, K44.9 - Diaphragmatic hernia without obstruction or gangrene, K92.1 - Melena TSH reflex Free T4 Today E66.01 - Morbid (severe) obesity due to excess calories, E66.9 - Obesity, unspecified, E78.9 - Disorder of lipoprotein metabolism, unspecified, K44.9 - Diaphragmatic hernia without obstruction or gangrene, K92.1 - Melena Vitamin A Today E66.01 - Morbid (severe) obesity due to excess calories, E66.9 - Obesity, unspecified, E78.9 - Disorder of lipoprotein metabolism, unspecified, K44.9 - Diaphragmatic hernia without obstruction or gangrene, K92.1 - Melena Vitamin B1 Today E66.01 - Morbid (severe) obesity due to excess calories, E66.9 - Obesity, unspecified, E78.9 - Disorder of lipoprotein metabolism, unspecified, K44.9 - Diaphragmatic hernia without obstruction or gangrene, K92.1 - Melena Lipid Panel Today E66.01 - Morbid (severe) obesity due to excess calories, E66.9 - Obesity, unspecified, E78.9 - Disorder of lipoprotein metabolism, unspecified, K44.9 - Diaphragmatic hernia without obstruction or gangrene, K92.1 - Melena Type and Screen Today E66.01 - Morbid (severe) obesity due to excess calories, E66.9 - Obesity, unspecified, E78.9 - Disorder of lipoprotein metabolism, unspecified, K44.9 - Diaphragmatic hernia without obstruction or gangrene, K92.1 - Melena C Reactive Protein Today E66.01 - Morbid (severe) obesity due to excess calories, E66.9 - Obesity, unspecified, E78.9 - Disorder of lipoprotein metabolism, unspecified, K44.9 - Diaphragmatic hernia without obstruction or gangrene, K92.1 - Melena Zinc Today E66.01 - Morbid (severe) obesity due to excess calories, E66.9 - Obesity, unspecified, E78.9 - Disorder of lipoprotein metabolism, unspecified, K44.9 - Diaphragmatic hernia without obstruction or gangrene, K92.1 - Melena IRON PROFILE Today E66.01 - Morbid (severe) obesity due to excess calories, E66.9 - Obesity, unspecified, E78.9 - Disorder of lipoprotein metabolism, unspecified, K44.9 - Diaphragmatic hernia without obstruction or gangrene, K92.1 - Melena Medications: New pantoprazole 40 mg PO DAILY 90 tabs 0RF K21.9 - Gastro-esophageal reflux disease without esophagitis ondansetron Only take one every 12 hours as needed if you have nausea 4 mg PO Q12H 20 tabs 0RF nausea and vomiting R11.0 - Nausea polyethylene glycol 3350 (Miralax) Mix each packet with 8oz of water, Crystal light, or Gatorade zero, or Propel and do 7 packets on 11/07/23 and another 7 packets on 11/08/23 17 grams PO DAILY 14 ea 0RF Z01.818 - Encounter for other preprocedural examination sucralfate 10 mL PO BID 600 mL 2RF K21.9 - Gastro-esophageal reflux disease without esophagitis Telehealth Telehealth Location of provider rendering services: practice address Location of patient: address on file Patient Identification confirmed using: Name, : Yes Telehealth method: voice only Patient verbally consented to treatment: Yes Patient verbally consented to billing insurance company: Yes Patient informed of any privacy concerns related to visit: Yes Minutes spent on Phone/Video with Pt.: 30 Coding Level of Care Code Tele Est Pt Level 4 (23368) Diagnoses Paraesophageal hernia K44.9 Time Spent (min) 30
[2023-11-01 15:04] VITALS: BMI 31.4
== END 2023-11-01 15:23 | disposition home or self-care (01) ==
LOC: HO.HBS 08:17
PROVIDERS: PCP Internal Medicine; Visit Provider Surgery
DX: K44.9 Diaphragmatic hernia without obstruction or gangrene (principal)
CPT/HCPCS: 99024

== ENCOUNTER → 2023-11-01 08:17 | Outpatient (BNVA) | payer MEDICARE, BC, SELFPAY | PROVIDERS: PCP Internal Medicine; Visit Provider Surgery ==

== ENCOUNTER 2023-11-04 13:28 | Outpatient (REF) | payer MEDICARE, BC, SELFPAY ==
[2023-11-04 14:00] VITALS: PULSE 80; RESP 16; O2SAT 97
--- NOTE | 2023-11-04 14:38 | PFT_ITS ---
Spirometry [Forced vital capacity 92%, FEV1 84%, FEV1/FVC 71 FEF 25-75 = 68% MVV 76% Post bronchodilator therapy there is no significant change. 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 Patient may have a very mild degree of small airway obstructive disorder, There is no response to bronchodilator therapy, Clinical correlation is recommended] MTDD
== END 2023-11-04 13:29 | disposition home or self-care (01) ==
LOC: HO.RESP 13:28
PROVIDERS: Visit Provider Surgery
DX: K44.9 Diaphragmatic hernia without obstruction or gangrene (principal)
CPT/HCPCS: 94010; 94640; 94727; 94729

== ENCOUNTER → 2023-11-04 14:38 | Outpatient (BNV) | payer MEDICARE, BC, SELFPAY | PROVIDERS: Visit Provider Internal Medicine | DX: J98.4 Other disorders of lung (principal) | CPT/HCPCS: 94060; 94727; 94729 ==

== ENCOUNTER 2023-11-09 11:04 | Inpatient (IN) | payer MEDICARE, BC, SELFPAY ==
[2023-11-02 08:32] LABS: MANUAL DIFF FLAG NO
[2023-11-02 08:53] LABS: Basophils Absolute Auto 0.1 X10*3/uL (0.0-0.2); Basophils Percent Auto 0.8 % (0-2); Eosinophils Absolute Auto 0.2 X10*3/uL (0.0-0.4); Eosinophils Percent Auto 2.4 % (0-4); Hematocrit 42.6 % (37.0-47.0); Hemoglobin 13.8 g/dl (12.0-16.0); Imm Gran Abs Auto 0.04 X10*3/uL (0.00-0.03); Imm Gran Pct Auto 0.6 % (0.0-0.4); Lymphocytes Absolute Auto 1.9 X10*3/uL (1.2-4.9); Lymphocytes Percent Auto 26.1 % (20-40); Mean Corpuscular HGB Conc 32.4 g/dl (31.0-35.0); Mean Corpuscular Hemoglobin 31.8 pg (27.0-33.0); Mean Corpuscular Volume 98.2 fL (80.0-98.0); Mean Platelet Volume 9.6 fL (9.4-12.3); Monocytes Absolute Auto 0.5 X10*3/uL (0.1-1.2); Monocytes Percent Auto 7.1 % (2-11); Neutrophils Absolute Auto 4.5 x10*3/uL (2.0-8.3); Platelet Count 248 X10*3/uL (160-400); Red Blood Count 4.34 X10*6/uL (4.20-5.50); Red Cell Distribution Width 12.7 % (11.0-16.0); White Blood Count 7.1 X10*3/uL (4.8-10.8)
[2023-11-02 09:05] LABS: Estimated Average Glucose 100 mg/dL; Hemoglobin A1c % 5.1 % (<6.0)
[2023-11-02 09:25] LABS: Alanine Aminotransferase 9 U/L (0-31); Albumin Level 4.4 g/dL (3.5-5.0); Alkaline Phosphatase 43 U/L (39-117); Anion Gap 13 (12-20); Aspartate Amino Transferase 14 U/L (5-31); Bilirubin Total 0.6 mg/dL (0.0-1.0); Blood Urea Nitrogen 20 mg/dL (9-16); C Reactive Protein 0.42 mg/dL (< or = 0.50); Calcium 9.6 mg/dL (8.4-10.2); Carbon Dioxide 29 mmol/L (22-29); Chloride 105 mmol/L (96-108); Cholesterol 190 mg/dL (<200); Estimated Glomerular Filt Rate 57; Glucose Random 93 mg/dL (60-115); HDL Cholesterol 52 mg/dL (>40); Iron 96 mcg/dL (30-160); LDL Cholesterol Calculated 112 mg/dL (<100); Percent Iron Saturation 37 % (15-50); Potassium 4.6 mmol/L (3.3-5.1); Sodium 142 mmol/L (135-145); Total Iron Binding Capacity 261 mcg/dL (228-428); Total Protein 6.9 g/dL (6.5-8.0); Triglycerides 131 mg/dL (<150); Unsaturated Iron Binding 165 ug/dL
[2023-11-02 09:43] LABS: Ferritin 32 ng/mL (10-250); TSH reflex Free T4 2.26 uIU/mL (0.32-4.0); Vitamin D 25-OH Total 46.3 ng/mL (>30)
[2023-11-02 09:48] LABS: Vitamin B12 242 pg/mL (200-900)
[2023-11-02 09:54] LABS: INTERNATIONAL NORM RATIO 0.9 (0.9-1.1); Prothrombin Time 10.8 SEC (11.1-13.3)
[2023-11-02 09:57] LABS: Partial Thromboplastin Time 29.6 SEC (26.0-36.8)
[2023-11-02 11:45] VITALS: BMI 31.6
[2023-11-05 01:33] LABS: Vitamin A 33 mcg/dL (38-98)
[2023-11-05 05:04] LABS: Zinc 72 mcg/dL (60-130)
[2023-11-06 17:24] LABS: Vitamin B1 <6 nmol/L (8-30)
[2023-11-09] VITALS (11 sets, daily range): BP systolic 98–127; BP diastolic 46–64; PULSE 72–84; RESP 12–20; TEMP 36.2–37.2; O2SAT 94–99; BMI 33.7
--- NOTE | ~2023-11-09 | XR_ITS ---
EXAMINATION: XR CHEST CLINICAL INFORMATION: Intrathoracic paraesophageal hernia repair COMPARISON: Chest 09/27/2023 TECHNIQUE: 2 views of the chest were obtained. FINDINGS: The lungs are hypoexpanded with patchy opacity seen left lung base likely infiltrate/atelectasis or postop change. Rest of the lungs are clear. The heart size and pulmonary vascularity appears normal. There is moderate dextroscoliosis of dorsal spine. XR/XR chest 2V IMPRESSION: 1. Left lower lobe infiltrate/atelectasis or postoperative change. 2. Moderate dextroscoliosis dorsal spine.
--- NOTE | 2023-11-09 11:18 | PHA.MEDREC ---
Pharmacy Consult ? Medication Reconciliation RN has completed the medication reconciliation, pharmacy reviewed.
[2023-11-09] MEDS: Aprepitant 32 MG/4.4 ML VIAL IVPUSH (11:22)
[2023-11-09] MEDS: Lactated Ringers 1,000 ML 999 ML IV (11:23)
--- NOTE | 2023-11-09 11:55 | P.CONAN_ITS ---
HPI - Anesthesia Eval Consult details Narrative: 68 yo female patient for diaphragmatic hernia repair PMFSH Active Problems Active Problems: All Active Problems (Updated 11/09/23 @ 11:57 by Cait Barron MD) Vitamin B1 deficiency (Acute) Vitamin B12 deficiency (Acute) Vitamin A deficiency (Acute) Tubulovillous adenoma of colon (Acute) Paraesophageal hernia (Acute) Obesity due to excess calories (Acute) Family history of polyps in the colon (Acute) Dysphagia (Acute) Pre-op examination (Acute) Thoracic scoliosis (Acute) Colon cancer screening (Acute) Encounter for general adult medical examination with abnormal findings (Acute) History of herpes zoster (Acute) Lipid disorder (Acute) GERD (gastroesophageal reflux disease) (Acute) Melena (Acute) Osteopenia (Acute) Osteoarthritis (Acute) Morbid obesity (Acute) Lipid disorder (Acute) Hypertension, essential (Acute) Anxiety, generalized (Acute) H/o falls-'off balance' Past Medical History Medical History (Updated 11/09/23 @ 12:32 by Cait Barron MD) Obesity due to excess calories Paraesophageal hernia Dysphagia Thoracic scoliosis GERD (gastroesophageal reflux disease) Melena Osteopenia Osteoarthritis Morbid obesity Lipid disorder Hypertension, essential Anxiety, generalized Family History Family History Other Mental health disorder Substance use disorder Family history of problems with anesthesia: No Surgical History Surgical History Hx of cystoscopy Hx of needle biopsy History of esophagogastroduodenoscopy (EGD) History of colonoscopy History of tubal ligation Hx of cholecystectomy History of Problems with Anesthesia: No Social History Social History Housing: Apartment Are you a primary neonatal intensive care unit nurse to a significant other at home: No Do you presently have visiting nurse or other home services: No Alcohol intake: current Alcohol intake frequency: does not drink Alcohol type: beer and wine Comment: uses cane occasionally Patient Tobacco Use Status: Never used Tobacco e-Cigarette/Vaping Use: Never Used Second Hand Smoke Exposure: No Use of substances other than those prescribed or required for medical reasons: No Have you been hit, kicked, punched, or otherwise hurt by someone within the past year? If so, by whom?: No Are you DNR?: No Advance Directives Information Provided: Yes (as above noted) Advance Directives on File: No Recently lost weight without trying: No Eating poorly because of decreased appetite: No Nutrition Risks: No Nutritional Risk Poor oral hygiene: No (upper full denture) service: No Current occupational status: retired Cognitive needs: No Hearing needs: No Vision needs: Yes Meds Allergies Allergy/AdvReac Type Severity Reaction Status Date / Time ibuprofen [From MOTRIN] Allergy Intermediate HAND Verified 11/02/23 08:53 SWELLING sulfamethoxazole Allergy Intermediate Rash Verified 11/02/23 08:54 [From Bactrim] trimethoprim [From Bactrim] Allergy Intermediate Rash Verified 11/02/23 08:54 alendronate sodium Allergy Mild JOINT PAIN Verified 11/02/23 08:53 [From FOSAMAX] simvastatin AdvReac Intermediate leg cramps Verified 11/02/23 08:53 Active Medications: Current Medications Lactated Ringer's (Lr) 1,000 mls @ 999 mls/hr IV .Q1H1M JOHAN Stop: 11/09/23 12:15 Last Admin: 11/09/23 11:23 Dose: 999 mls/hr Exam Height,Weight and Vital Signs: Height 5 ft Weight 73.482 kg Vital Signs Temp Pulse Resp BP Pulse Ox O2 Del Method 11/09/23 12:38 99.0 F 72 16 103/61 94 Room Air Pertinent Lab Results Pertinent Lab Results: Laboratory Tests 11/02/23 11/02/23 08:19 08:30 WBC 7.1 RBC 4.34 Hgb 13.8 Hct 42.6 MCV 98.2 H MCH 31.8 MCHC 32.4 RDW 12.7 Plt Count 248 MPV 9.6 Immature Gran % (Auto) 0.6 H Neut % (Auto) 63.0 Lymph % (Auto) 26.1 Elbert % (Auto) 7.1 Eos % (Auto) 2.4 Baso % (Auto) 0.8 Lymph # (Auto) 1.9 Elbert # (Auto) 0.5 Eos # (Auto) 0.2 Baso # (Auto) 0.1 Abs Immat Gran (auto) 0.04 H Absolute Neuts (auto) 4.5 Absolute Nucleated RBC 0.000 Nucleated RBC % (auto) 0.0 PT 10.8 L INR 0.9 APTT 29.6 Sodium 142 Potassium 4.6 Chloride 105 Carbon Dioxide 29 Anion Gap 13 BUN 20 H Creatinine 0.97 Estim Creat Clear Calc TNP Estimated GFR 57 Random Glucose 93 Estimat Average Glucose 100 Hemoglobin A1c % 5.1 Calcium 9.6 Iron 96 TIBC 261 % Saturation 37 Unsat Iron Binding 165 Ferritin 32 Total Bilirubin 0.6 AST 14 ALT 9 Alkaline Phosphatase 43 C-Reactive Protein 0.42 Total Protein 6.9 Albumin 4.4 Triglycerides 131 Cholesterol 190 LDL Cholesterol, Calc 112 H HDL Cholesterol 52 Vitamin A 33 L Vitamin B1 <6 L Vitamin B12 242 25-OH Vitamin D Total 46.3 TSH 2.26 Zinc 72 Blood Type AB Positive Antibody Screen NEGATIVE Airway Mallampati Class: II TM Dist: >3cm Neck ROM: Full Denture: Upper Loose/Missing/Broken Teeth: Yes (Upper full dentures. Only few teeth in the bottom. Cracked tooth bottom left) Heart: RRR Lungs: CTAB Assessment and Plan Assessment Anesthesia Assessment: Anesthesia Plan Discussed and Chart Reviewed Final Anesthetic Review Family History of Problems with Anesthesia: No History of Problems with Anesthesia: No NPO: Yes ASA Class: III Final Preanesthetic Review: No Changes in Pt Med Stat, Meds/Allgs Chart Reviewed, Consent Obtained/Reviewed and Anes Risks/Benef Reviewed Patient Risk: Intermediate Procedure Risk: Intermediate Assessment/Block/Sedation in : Assess/Block/Sedation- Anesthetic Plan Anesthetic Plan: GA Disposition: Standard PACU and Inp. Admit - Standard Bed
--- NOTE | 2023-11-09 12:16 | P.HPSUR_ITS ---
Pre-Procedural Eval Section A - 24 Hr Update-Section A only Date of Service: 11/09/23 The patient is an INPATIENT: Yes The patient has been examined within 24 hours of the surgical procedure. The History & Physical has been completed within 30 days and I have reviewed it.: Yes Section B - Complete if H&P > 30 days Chief Complaint: paraesophageal hernia Relevant Family History (Specify if Yes): No Relevant Social History: None Present Medications: None Medical History: No relevant PMH History of Previous Operations: No relevant previous surgery Allergies: Allergies Allergy/AdvReac Type Severity Reaction Status Date / Time ibuprofen [From MOTRIN] Allergy Intermediate HAND Verified 11/02/23 08:53 SWELLING sulfamethoxazole Allergy Intermediate Rash Verified 11/02/23 08:54 [From Bactrim] trimethoprim [From Bactrim] Allergy Intermediate Rash Verified 11/02/23 08:54 alendronate sodium Allergy Mild JOINT PAIN Verified 11/02/23 08:53 [From FOSAMAX] simvastatin AdvReac Intermediate leg cramps Verified 11/02/23 08:53 Review of Systems Sugical H&P ROS: Negative: Constitution, Cardiovascular, Respiratory, Neurological, Psychiatric, Hem-Onc, Allergic/Immunologic, Gastrointestinal, G enitourinary, Musculoskeletal, Integumentary, Endocrine and Eyes/Ears/Nose/Throat Exam Surgical H&P Exam: Normal: HEENT, Normal: Heart, Normal: Lungs, Normal: Extremities, Normal: Abdomen, Normal: Skin and Normal: Neurological Plan Diagnosis/Plan: Unchanged I have reviewed the history and physical and performed a pertinent physical examination on my patient. No changes have occurred unless specified. Time Spent With Patient Time: Total time managing care of this patient today ____ minutes.
--- NOTE | 2023-11-09 12:21 | PM.OP ---
Brief Operative Note Date of Service: 11/09/23 Pre-op diagnosis: Paraesophageal hernia Post-op diagnosis: same (Giant paraesophageal hernia & abdominal adhesions) Procedure: Procedure: COMORBIDITIES: GERD, diaphragmatic hernia, hyperlipidemia, anxiety, depression, hypertension, knee pain ?INDICATIONS: The patient is a 27 year old male who was referred to me from Dr. Salinas for a diaphragmatic hernia and GERD confirmed by EGD and UGI. The patient is scheduled today for diaphragmatic hernia repair. Risks of recurrent hernia, dysphagia, persistent GERD, VTE, leak, infection and bleeding were discussed with the patient and he is in agreement with the plan. PROCEDURE: Esophago-gastroscopy, laparoscopic lysis of adhesions, laparoscopic repair of incarcerated diaphragmatic hernia and laparoscopic gastropexy. UNIQUELY DIFFICULT CASE DUE TO THE GIANT PARAESOPHAGEAL HERNIA AND EXTENSIVE INTRA-ABDOMINAL ADHESIONS REQUIRING 2 ADDITIONAL TROCARS DESCRIPTION OF PROCEDURE: After informed consent was obtained from the patient, the patient was given preoperative antibiotics, and was transferred to the operating room. After successful induction of general anesthesia, pneumatic compression devices were placed on both lower extremities. An upper endoscopy was performed next. The oropharynx and upper esophagus appeared to be within normal limits. Because of the paraesophageal hernia I was not able to pass the scope into the distal stomach. After all fluid and air were suctioned and the stomach was fully decompressed, the scope was withdrawn and secured in the mid esophagus. The patient was then prepped and draped in the usual sterile manner. Because of the previous open cholecystectomy through an upper midline incision, abdominal access was established at the left upper quadrant with the Veress needle. The abdomen was insufflated with CO2 to a pressure of 15 mmHg and a 5 mm Versi step port was placed at the left mid-abdomen. Under direct visualization, the Veress needle was removed and there was no injury where it was placed. It was exchanged with a 5 mm Versi-step port. An additional extra 5 mm Versi-step port was placed to the left of the umbilicus. All upper abdominal adhesions from the previous open cholecystectomy were lysed completely. Following that additional ports were placed, specifically two 5 mm Versi-step ports to the left upper and right upper quadrant, and a 12 mm Versi-Step port to the right upper quadrant. 1% lidocaine plain was used to infiltrate all port sites as well as all fascia defects. Following that, the patient was placed in a steep reverse Trendelenburg position. An additional 5 mm port was placed to the right flank for the Mediflex retractor that was used to retract the left lobe of the liver. There was a giant paraesophageal hernia with about half of the stomach herniated into the chest next to the esophagus. I then opened the gastrocolic ligament between the transverse colon and the greater curvature of the stomach with the ultrasonic device to enter the lesser sac and facilitate the ligation of the short gastric vessels. I started at at the upper third along the greater curvature and using the Thunderbeat, all attachments were divided. There was an obvious significant-sized paraesophageal hiatal hernia. The stomach was incarcerated into the mediastinum with multiple thick adhesions. Mobilization of the stomach was very difficult and required tedious and careful dissection. I continued dissecting along the hiatus toward the left kina into the mediastinum mobilizing the hernia sac from the mediastinum. The esophagus was dissected off the aorta. The pars flaccida was opened. It was atually herniated into the hernia defect. The vena cava was dilated and it was carefully protected. I then continued by dissecting even further into the posterior retro-esophageal space all the way to the angle of His. I continued to mobilize the esophagus into the mediastinum circumferentially. The esophagus was densely adhrent to the aorta and the majority of these adhesions were mobilized. Both vagal nerves were seen and preserved. With extensive circumferential dissection into the mediastinum, I was able to bring the GE junction at least 3cm below the crura. I closed the hernia defect with four interrupted #0 Surgidac sutures using the Endo Stitch device, two of which were placed posterior and two of which anterior to the esophagus. ? A gastropexy was then performed in order to prevent postoperative GERD and partial gastric volvulus. Several interrupted 2.0 Surgidac sutures were placed between the greater curvature of the dissected stomach and the previously divided greater omentum and gastro-colic ligament using the Endo-Stitch device. ?An upper endoscopy was performed. There was no narrowing at the GE junction or any esophageal injury. The scope was easily advanced all the way to the pylorus which was clearly visualized. There was no narrowing anywhere. I confirmed that the GE junction was 3cm intra-abdominally. At that point the gastroscope was withdrawn from the patient?s mouth while we were decompressing the bowel and the stomach from any remaining air. I looked into the lesser sac to see how the stomach was situating and it was situating well. There was no bleeding from the, spleen, or short gastric vessels. The Mediflex retractor was removed, and the undersurface of the liver was inspected and there was no bleeding. The patient was placed in supine position. Then 30cc of Ropivacaine plain with 10 mg of Dexamethasone were used to infiltrate the fascial closure as well as all skin incisions. At this point, the abdomen was deflated, all ports were removed under direct vision, and no bleeding was noted from any of the port sites. The skin incisions were irrigated with saline and were closed with 4-0 absorbable monofilament sutures. Steri-Strips and OpSites were used to cover all incisions. The patient was extubated and was transferred in stable condition to the recovery room for further care. I was present and performed all quick parts of the procedure. Sunday was the accounting assistant. There were no residents to assist with this case. Michel Buck MD, PhD, FACS Surgeon: Ori Buck MD Anesthesia: GETA, local and other (TAP block) Was an Cement Finisher used for this Procedure?: No Cement Finisher: Dannielle Brand Estimated blood loss (mL): 50 IV fluids (mL): 2,000 Urine output (mL): 150 Pathology: none sent Condition: stable Disposition: PACU
--- NOTE | 2023-11-09 12:26 | P.PNGS_ITS ---
Subjective Subjective Date of Service: 11/10/23 Interval history: Feels well. Mild incisional pain. She is tolerating phase 1 bariatric diet Physical Exam 2 Vital Signs: Vital Signs: BMI result Body Mass Index 31.6 GI: Inspection: Yes normal to inspection, Yes incision (clean, dry and intact) and Yes obesity Palpation (GI): Soft to palpation Extrem: Right lower extremity: normal to inspection (no calf tenderness) L eft lower extremity: normal to inspection (no calf tenderness) Objective Data Labs 11/10/23 05:04 11/10/23 05:04 Procedures Date of Service Date of Service: 11/10/23 Progress Note: A&P Assessment and plan (1) Paraesophageal hernia: Status: Acute Assessment and Plan: s/p laparoscopic sleeve gastrectomy, lysis of adhesions, diaphragmatic hernia repair and gastropexy Doing well Will check am labs and if OK the patient will be discharged home (2) Obesity: Status: Acute (3) Lipid disorder: Status: Acute (4) Hypertension, essential: Status: Acute (5) Anxiety, generalized: Status: Acute (6) Osteoarthritis: Status: Acute (7) Osteopenia: Status: Acute (8) Paraesophageal hernia: Status: Acute (9) S/P repair of paraesophageal hernia: Status: Acute Time Spent With Patient Time: Total time managing care of this patient today ____ minutes. Quality Stroke Does the patient have a stroke diagnosis?: No VTE Prior VTE?: No VTE Risk Level:: Surgical - moderate VTE Device Contraindication: N/A - Device Ordered VTE Drug Contraindication: Treatment Not Indicated
--- NOTE | 2023-11-09 12:46 | P.DS_ITS ---
DS: Providers Provider Date of Service: 11/10/23 Date of admission: 11/09/23 11:04 Primary care physician: Latricia Hebert MD DS: Diagnosis Discharge Diagnosis (1) Paraesophageal hernia: Status: Acute (2) Obesity: Status: Acute (3) Lipid disorder: Status: Acute (4) Hypertension, essential: Status: Acute (5) Anxiety, generalized: Status: Acute (6) Osteoarthritis: Status: Acute (7) Osteopenia: Status: Acute DS: Summary Hospital Course Hospital Course: ADMITTING DIAGNOSIS: incarcerated paraesophageal hernia, obesity, HTN, anxiety, GERD DISCHARGE DIAGNOSIS: same, s/p repair paraesophageal hernia PAST SURGICAL HISTORY: cholecystectomy, BTL PROCEDURE: upper endoscopy, laparoscopic repair of paraesophageal hernia DISCHARGE SUMMARY: History of Present Illness: The patient is a 68 year-old woman with a BMI of 31 kg/m2 and associated co- morbidities as described above. The patient was electively scheduled for laparoscopic, possible open repair of paraesophageal hernia. Risks and complications of the surgery were discussed with the patient in advance, particularly the possibility of , pulmonary embolism, bleeding, bowel injury, continued GERD, cardiac, renal or pulmonary complications. The patient understood all the risks and was in agreement with the surgical plan. Hospital Course: The patient underwent an uneventful laparoscopic repair of paraesophageal hernia on the day of admission. Postoperatively, the patient was transferred to the surgical floor. The patient received IV Acetaminophen and IV dilaudid for pain control. Patient was started on bariatric phase 1 diet POD #0. On post operative day one, the patient was feeling well without nausea, vomiting, fevers, or tachycardia. The patient had some mild incisional pain and the abdomen was soft. On the morning of postoperative day one, the patient was continued on 1 ounce of water or ice every half hour. During the day, the patient did fairly well, having some incisional pain, but able to ambulate adequately and to tolerate liquids well. Since the patient is doing well, we decided that the patient was ready to be discharged. The patient was given instructions to follow-up with me next week and to call my office for any fever over 101, persistent abdominal pain, nausea, vomiting, GERD, symptoms of DVT such as calf tenderness, or leg swelling, or pulmonary embolism such as chest pain or shortness of breath. The patient was also instructed to drink 40-60 ounces of liquids per day using the 1-ounce cups. The patient had been given prescriptions for Tylenol for pain, Zofran prn for nausea, and pantoprazole and carafate previously. The patient was encouraged to ambulate and use the incentive spirometer. The patient was allowed to shower, but no baths, and encouraged to stay active at home. All of these instructions were given to the patient personally. All questions were answered and the patient understood all instructions, the instructions were also given to the patient in print. Time Attestation Discharge coordination time: Less than 30 minutes Quality: Safe Use of Opioids Does Pt have an Active Cancer Diagnosis on the Problem List?: No Quality: Stroke Does the patient have a stroke diagnosis?: No Physical Exam Vital Signs: Vital Signs: Last Vital Signs Temp 99.0 F 11/09/23 12:38 Pulse 72 11/09/23 12:38 Resp 16 11/09/23 12:38 BP 103/61 11/09/23 12:38 Pulse Ox 94 11/09/23 12:38 O2 Del Method Room Air 11/09/23 12:38 BMI result Body Mass Index 31.6 Discharge Plan Discharge Anticipated Discharge Date/Time: 11/10/23 10:43 Patient Disposition: Home, Self-Care Discharge Diagnosis: s/p repair paraesophageal hernia Referrals: Latricia Hebert MD [Primary Care Provider] - 1 Week Discharge Medications: Continued ezetimibe 10 mg tablet 10 mg PO DAILY 90 Days Qty: 90 0RF fluoxetine 10 mg capsule 10 mg PO DAILY 90 Days Qty: 90 1RF vitamin A palmitate 3,000 mcg (10,000 unit) capsule 10,000 unit PO DAILY Qty: 30 0RF mecobalamin (vitamin B12) 1,000 mcg tablet,disintegrating 1,000 mcg sublingual DAILY Qty: 90 0RF Rx Instructions: place tablet under tongue and allow to dissolve for at least30 secs before swallowing thiamine HCl (vitamin B1) 100 mg tablet 100 mg PO DAILY Qty: 90 0RF pantoprazole 40 mg tablet,delayed release (DR/EC) 40 mg PO DAILY Qty: 90 0RF sucralfate 100 mg/mL suspension 10 ml PO BID Qty: 600 2RF ondansetron 4 mg tablet,disintegrating 4 mg PO Q12H Qty: 20 0RF Rx Instructions: Only take one every 12 hours as needed if you have nausea Held lisinopril 20 mg tablet 20 mg PO DAILY 90 Days Qty: 90 1RF Hold Instructions: Resume on 11/11/23. Check your blood pressure every m orning as soon as you wake up and send it to Dr. Buck. Do no take the blood pressure medication if the blood pressure is below 120/70. Wait every day to hear back from Dr. Buck before you take the medication. Discontinued polyethylene glycol 3350 [Miralax] 17 gram powder in packet 17 g PO DAILY Qty: 14 0RF Rx Instructions: Mix each packet with 8oz of water, Crystal light, or Gatorade zero, or Propel and do 7 packets on 11/07/23 and another 7 packets on 11/08/23 Discharge Orders: Discharge Order (Routine); Ordered 11/10/23 Ordered By: Ori Buck Activity on Discharge: No heavy lifting Stand Alone Forms: Patient Portal Discharge page Care Plan Goals: resolution of GI symptoms Health Concerns: paraesophageal hernia, obesity Plan of Treatment: No tub baths, sex or returning to work until discussed at first post op appointment. No exercise, alcohol, tobacco or illegal drug use. Continue to use incentive spirometer hourly while awake. Walk in home for 5- 10 minutes every 2 hours during the first week. Continue phase 1 diet today and start phase 2 diet tomorrow morning. Follow all instructions in the bariatric handbook and call with any questions. 1. Please call your doctor or come back to the emergency room should any new symptoms arise. 2. You will receive a courtesy call from [facility] 24-48 hours after discharge. 3. Activity: abstain from alcohol, practice limited stair climbing, no bending, no driving, no exercise, no illicit substances, no lifting, no sex, no tub bath, no work. 4. Diet: continue as discussed with bariatric team.. 5. Dressing Change/Wound Care: Do not change or remove surgical dressings unless they are wet or soiled. 6. Call your doctor if: - Your temperature exceeds 101.5 F - You experience excessive pain or swelling - You have an unexpected reaction to medication - You have excessive bleeding - You experience continued vomiting/nausea - Your incision begins to separate - Your incision shows signs of infection such as increased redness, swelling, excessive pain, heat, or drainage (light blood or clear fluid is normal) 7. General instructions: No lifting greater than 5 lbs for 1 week and not more than 20lbs the next 3?weeks. No driving until seen at the office in 5-7 days after surgery. If you do not move your bowels in the next 2 days, please tell?Dr. Buck. Please walk around your home every hour or two to prevent blood clots from forming in your legs. You do not need to wake from sleeping to walk. Please sleep in a bed or couch to prevent kinking at the hips and knees. Please take your incentive spirometer (your lung telegraph equipment maintainer) home with you and use it for the next few days to prevent pneumonia. You may shower, no hot tubs, baths or swimming pools.?Please follow the post op diet instructions you are?given by Dr May castellon? and text me daily at 5-6pm for an update.?If you have any issues or concerns or questions please communicate this to him via text.? The Celebrate shakes have all of the bariatric vitamins you need if you consume these shakes. If you are drinking other protein shakes, you will need to purchase the Celebrate multivitamins and calcium that are available in the hospital gift shop on the first floor of the main hospital.??Do not take anything without first discussing with Dr Buck. Please make sure you are consuming at least 40 ounces of fluids per day starting the?day AFTER your discharge from the hospital. Always drink 1-2 ml per minute using the 5ml?syringe. If you drink faster you may experience?bloating,?gas pain, burping, nausea or heartburn. In that case please slow down your pace and use the syringe to?understand better the?proper?pace and volume of drinking. Do not hesitate to contact the office with any questions at . The patient's medical history has been reviewed and they are considered low risk for post op DVT and therefore DVT prophylaxis is not considered necessary. Travel after surgery was reviewed. The patient has not disclosed any travel plans during the first 30 days after surgery and they have been advised that within the first 30 days after surgery any bus, plane, train or car travel over 2 hours in duration is contraindicated due to the possibility of developing blood clots from immobility. Any travel, needs to include periods of ambulation of 10 minutes in duration every 2 hours. The patient was instructed to discuss any plans for travel during this period with their bariatric surgeon. Assessment: stable, post op repair paraesophageal hernia
[2023-11-09 16:39] LABS: Hematocrit 41.1 % (37.0-47.0); Hemoglobin 13.1 g/dl (12.0-16.0)
[2023-11-09] MEDS: Lactated Ringers 1,000 ML 125 ML IVCONT (16:48)
[2023-11-09 17:06] LABS: Anion Gap 20 (12-20); Blood Urea Nitrogen 25 mg/dL (9-16); Calcium 8.8 mg/dL (8.4-10.2); Carbon Dioxide 19 mmol/L (22-29); Chloride 103 mmol/L (96-108); Creatinine Clr Calc Pharmacy 44.1; Estimated Glomerular Filt Rate 51; Glucose Random 164 mg/dL (60-115); Sodium 138 mmol/L (135-145)
[2023-11-09] MEDS: Lactated Ringers 1,000 ML 100 ML IVCONT (18:13)
[2023-11-09] MEDS: ceFAZolin Sodium/Dextrose,Iso 2 GM/50 ML PIGGYBACK IV (19:12)
[2023-11-09] MEDS: Albuterol/Iprat 2.5/0.5MG 3 ML AMPUL.NEB INHALE (19:15)
[2023-11-09] MEDS: Famotidine/PF 20 MG/2 ML VIAL IVPUSH (20:54)
[2023-11-09] MEDS: Acetaminophen 1,000 MG/100 ML PIGGYBACK 16.7 MG IV (20:54)
[2023-11-10] MEDS: Lactated Ringers 1,000 ML 125 ML IVCONT ×2 (00:10→08:31)
[2023-11-10] MEDS: Acetaminophen 1,000 MG/100 ML PIGGYBACK 16.7 MG IV ×2 (01:25→06:41)
[2023-11-10 03:09] VITALS: BP 103/52; PULSE 69; RESP 18; TEMP 36.2; O2SAT 92
[2023-11-10 05:28] LABS: Basophils Percent Auto 0.1 % (0-2); Hematocrit 37.1 % (37.0-47.0); Hemoglobin 12.3 g/dl (12.0-16.0); Imm Gran Abs Auto 0.04 X10*3/uL (0.00-0.03); Imm Gran Pct Auto 0.4 % (0.0-0.4); Lymphocytes Absolute Auto 0.3 X10*3/uL (1.2-4.9); Lymphocytes Percent Auto 3.8 % (20-40); MANUAL DIFF FLAG SCAN; Mean Corpuscular HGB Conc 33.2 g/dl (31.0-35.0); Mean Corpuscular Hemoglobin 32.2 pg (27.0-33.0); Mean Corpuscular Volume 97.1 fL (80.0-98.0); Monocytes Absolute Auto 0.2 X10*3/uL (0.1-1.2); Monocytes Percent Auto 2.3 % (2-11); Neutrophils Absolute Auto 8.5 x10*3/uL (2.0-8.3); Neutrophils Percent Auto 93.4 % (45-73); Platelet Count 221 X10*3/uL (160-400); Red Blood Count 3.82 X10*6/uL (4.20-5.50); Red Cell Distribution Width 12.4 % (11.0-16.0); SCAN SMEAR FLAG 1; White Blood Count 9.1 X10*3/uL (4.8-10.8)
[2023-11-10 05:41] LABS: Anion Gap 14 (12-20); Blood Urea Nitrogen 21 mg/dL (9-16); Calcium 8.8 mg/dL (8.4-10.2); Carbon Dioxide 26 mmol/L (22-29); Chloride 104 mmol/L (96-108); Creatinine Clr Calc Pharmacy 51.4; Estimated Glomerular Filt Rate 59; Glucose Random 187 mg/dL (60-115); Sodium 139 mmol/L (135-145)
[2023-11-10 06:03] LABS: SLIDE REVIEW VERIFIED
[2023-11-10 08:00] VITALS: BP 110/54; PULSE 72; RESP 17; TEMP 37; O2SAT 92
[2023-11-10] MEDS: lisinopriL 20 MG TABLET PO (08:30)
[2023-11-10] MEDS: Famotidine/PF 20 MG/2 ML VIAL IVPUSH (08:30)
[2023-11-10] MEDS: FLUoxetine HCl 10 MG CAPSULE PO (08:30)
[2023-11-10] MEDS: Albuterol/Iprat 2.5/0.5MG 3 ML AMPUL.NEB INHALE (08:35)
[2023-11-10 08:37] VITALS: PULSE 78; RESP 16; O2SAT 96
--- NOTE | 2023-11-10 09:00 | MHC.CM.PN ---
pt is dcd no servies pt explins she will be staying with her sister
--- NOTE | 2023-11-10 11:35 | PC.RT ---
Pt refused tx due to family visiting.
--- NOTE | 2023-11-10 18:11 | HO.POSTANES ---
Post Anesthesia Evaluation Post Anesthesia Evaluation Date of Service: 11/09/23 Vital Signs: Vital Signs Temp Pulse Resp BP Pulse Ox O2 Del Method 11/10/23 08:37 78 16 11/10/23 08:00 98.6 F 72 17 110/54 L 92 Room Air Anesthesia: General Endotracheal-GETA Mental Status: Awake Pain Control: Satisfactory Nausea/Vomiting: None Hydration: Adequate Anesthesia-Related Issues: No Anes. Related Issues
== END 2023-11-10 12:20 | disposition home or self-care (01) | DRG 328 ==
LOC: HO.SSSA 12:44 → HO.S3 17:51
PROVIDERS: Physician Assistant; Admitting Provider Surgery; PCP Internal Medicine; Visit Provider Surgery
PROC: 0BQT4ZZ Repair Diaphragm, Percutaneous Endoscopic Approach (ICD-10-PCS; CPT 43281; principal; 2023-11-09 12:50)
DX: K44.0 Diaphragmatic hernia with obstruction, without gangrene (principal); K66.0 Peritoneal adhesions (postprocedural) (postinfection); F41.1 Generalized anxiety disorder; E66.9 Obesity, unspecified; Z68.33 Body mass index [BMI] 33.0-33.9, adult; I10 Essential (primary) hypertension; K21.9 Gastro-esophageal reflux disease without esophagitis; Z79.899 Other long term (current) drug therapy
CPT/HCPCS: 43281; 36415; 71046; 80048; 80053; 80061; 82306; 82607; 82728; 83036; 83540; 84425; 84443; 84590; 84630; 85014; 85018; 85025; 85610; 85730; 86140; 86850; 86900; 86901; 94640; 96361; 96365; 96366; 96367; 96375; A4649; C9145; J0131; J0690; J1100; J1170; J2250; J2371; J2405; J2704; J2795; J3010; J7120

== ENCOUNTER → 2023-11-09 11:04 | Outpatient (BNV) | payer MEDICARE, BC, SELFPAY | PROVIDERS: Admitting Provider Surgery; PCP Internal Medicine; Visit Provider Surgery | DX: K44.9 Diaphragmatic hernia without obstruction or gangrene (principal); K66.0 Peritoneal adhesions (postprocedural) (postinfection); E66.09 Other obesity due to excess calories; Z68.33 Body mass index [BMI] 33.0-33.9, adult; I10 Essential (primary) hypertension; F41.1 Generalized anxiety disorder; M15.9 Polyosteoarthritis, unspecified; M85.89 Other specified disorders of bone density and structure, multiple sites; Z98.890 Other specified postprocedural states; Z87.19 Personal history of other diseases of the digestive system | CPT/HCPCS: 43281; 99024 ==

== ENCOUNTER 2023-11-17 12:39 | Outpatient (AMB) | payer MEDICARE, BC, SELFPAY ==
--- NOTE | 2023-11-17 12:58 | A.OFFVIS_ITS ---
Intake VS Expanded 11/17/23 13:10 BP 136/62 Blood Pressure Location Rt brachial Blood Pressure Position Sitting Pulse 84 Pulse Source Pulse Oximeter Temp 97.5 F Temperature Source Temporal Artery Scan Pulse Oximetry 95 Oxygen Delivery Method Room Air Height 5 ft Weight 153 lb 6.4 oz BMI 30.0 Body Fat % 46.0 Body Fat Mass 70.6 Fat Free Mass 82.6 Visceral Fat Rating 13.0 Body Water % 37.8 Body Water Mass 58.0 Muscle Mass/Score 78.4 Basal Metabolic Rate/Score 1,180 Intake Visit Reasons: (OV) Paraesophageal Hernia Repair 11/09/23 Allergies ibuprofen [From MOTRIN] Allergy (Intermediate, Verified 11/17/23 13:04) HAND SWELLING sulfamethoxazole [From Bactrim] Allergy (Intermediate, Verified 11/17/23 13:04) Rash trimethoprim [From Bactrim] Allergy (Intermediate, Verified 11/17/23 13:04) Rash alendronate sodium [From FOSAMAX] Allergy (Mild, Verified 11/17/23 13:04) JOINT PAIN simvastatin Adverse Reaction (Intermediate, Verified 11/17/23 13:04) leg cramps HPI HPI Comments History of Present Illness Details Patient is a pleasant 68-year-old female who returns to the office today in follow-up. She is status post hiatal hernia repair performed on 11/09/[address] Buck. Weight today is 153.4 lb with a BMI of 29.9. She had only 1 episode of reflux when she had taken too much otherwise she is doing very well. She is tolerating 3 celebrate rebuild shakes with 1 scoop each in approximately 40-50 oz of fluid. She offers no complaints of pain. She has been ambulating freely both in her house and just outside her house. She has using a single-point cane as an assistive device. [facility] Medical History (Updated 11/12/23 @ 00:02 by Maximo Martin) Obesity due to excess calories Paraesophageal hernia Dysphagia Thoracic scoliosis GERD (gastroesophageal reflux disease) Melena Morbid obesity Lipid disorder Hypertension, essential Anxiety, generalized Surgical History Hx of cystoscopy Hx of needle biopsy History of esophagogastroduodenoscopy (EGD) History of colonoscopy History of tubal ligation Hx of cholecystectomy Family History Other Mental health disorder Substance use disorder Social History Household Members: None Housing: Other Housing Other:: Sr living Are you a primary livestock caretaker to a significant other at home: No Do you presently have visiting nurse or other home services: No Alcohol intake: current Alcohol intake frequency: does not drink Alcohol type: beer and wine Comment: uses cane occasionally Patient Tobacco Use Status: Never used Tobacco e-Cigarette/Vaping Use: Never Used Second Hand Smoke Exposure: No service: No Current occupational status: retired Cognitive needs: No Hearing needs: No Vision needs: Yes Physical Exam GI Inspection: Yes incision (Clean, dry, intact.) Assessment & Plan Assessment & Plan (1) S/P repair of paraesophageal hernia: Code(s): Z98.890 - Other specified postprocedural states; Z87.19 - Personal history of other diseases of the digestive system Plan: Postop day 8, status post paraesophageal hernia repair on 11/09/2023. Overall, she is doing very well, tolerating her shakes and fluids. She will communicate with Dr. Buck regarding her meal plan. She is quite happy with her weight loss and has no complaints at today's visit. She was reminded of the pace of drinking, 1 oz every 15 minutes. She was instructed to continue to wear her abdominal binder for 2 weeks with any exercise or activity. Coding Level of Care Code Global (16222) Diagnoses S/P repair of paraesophageal hernia Z98.890; Z87.19
[2023-11-17 13:10] VITALS: BP 136/62; PULSE 84; TEMP 36.4; O2SAT 95
== END 2023-11-17 13:21 | disposition home or self-care (01) ==
PROVIDERS: PCP Internal Medicine; Visit Provider Physician Assistant Surgical
DX: Z87.19 Personal history of other diseases of the digestive system (principal)
CPT/HCPCS: 99024

== ENCOUNTER → 2023-11-17 12:39 | Outpatient (BNVA) | payer MEDICARE, BC, SELFPAY | PROVIDERS: PCP Internal Medicine; Visit Provider Physician Assistant Surgical | DX: Z98.890 Other specified postprocedural states (principal); Z87.19 Personal history of other diseases of the digestive system | CPT/HCPCS: 99212 ==

== ENCOUNTER 2023-11-19 14:42 | Outpatient (AMB) | payer MEDICARE, BC, SELFPAY ==
--- NOTE | 2023-11-19 14:47 | A.OFFPC_ITS ---
Vital Signs 11/19/23 14:50 Height 5 ft 3 in Weight 155 lb 4 oz BMI 27.5 BP 132/72 Blood Pressure Location Rt brachial Position Sitting Pulse 71 Pulse Source Pulse Oximeter Pulse Oximetry (%) 96 Oxygen Delivery Method Room Air Intake Visit Reasons: 8 month follow up Allergies ibuprofen [From MOTRIN] Allergy (Intermediate, Verified 11/19/23 14:48) HAND SWELLING sulfamethoxazole [From Bactrim] Allergy (Intermediate, Verified 11/19/23 14:48) Rash trimethoprim [From Bactrim] Allergy (Intermediate, Verified 11/19/23 14:48) Rash alendronate sodium [From FOSAMAX] Allergy (Mild, Verified 11/19/23 14:48) JOINT PAIN simvastatin Adverse Reaction (Intermediate, Verified 11/19/23 14:48) leg cramps Medication List - Last Reconciled 11/19/23 by Latricia Hebert MD ezetimibe 10 mg PO DAILY 90 days fluoxetine 10 mg PO DAILY 90 days lisinopril 20 mg PO DAILY 90 days mecobalamin (vitamin B12) 1,000 mcg sublingual DAILY ondansetron 4 mg PO Q12H pantoprazole 40 mg PO DAILY sucralfate 10 mL PO BID thiamine HCl (vitamin B1) 100 mg PO DAILY vitamin A palmitate 10,000 units PO DAILY Tobacco use date assessed: 11/19/23 Fall risk assessment: No Falls in past year Last assessed Fall Risk: 11/19/23 Dental Screening Dental Screen Date: 11/19/23 Did you have a dental visit in the last 12 months?: No Did you have a dental problem in the last 6 months where you did not have access to dental care?: No Was dental information given to patient?: No HPI 8 month follow up HPI Details Patient recently had paraesophageal hernia repair She is doing well, still on liquid diet Labs done recently reviewed Blood pressure is stable Medication list reviewed Her depression and anxiety is stable, she is on fluoxetine 10 mg. Hypertension: she is on lisinopril 20 mg.? Blood pressure is well controlled Osteoarthritis multiple joints, Tylenol as needed Continue Zetia for lipid disorder.? Chronic back pain due to history of thoracic scoliosis stable Follow-up 4 months [facility] Medical History Obesity due to excess calories Paraesophageal hernia Dysphagia Thoracic scoliosis GERD (gastroesophageal reflux disease) Melena Morbid obesity Lipid disorder Hypertension, essential Anxiety, generalized Surgical History Hx of cystoscopy Hx of needle biopsy History of esophagogastroduodenoscopy (EGD) History of colonoscopy History of tubal ligation Hx of cholecystectomy Family History Other Mental health disorder Substance use disorder Social History Household Members: None Housing: Other Housing Other:: Sr living Are you a primary animal daycare provider to a significant other at home: No Do you presently have visiting nurse or other home services: No Alcohol intake: current Alcohol intake frequency: does not drink Alcohol type: beer and wine Comment: uses cane occasionally Patient Tobacco Use Status: Never used Tobacco e-Cigarette/Vaping Use: Never Used Second Hand Smoke Exposure: No service: No Current occupational status: retired Cognitive needs: No Hearing needs: No Vision needs: Yes Questionnaire PHQ-9 Over the last 2 weeks, how often have you been bothered by any of the following problems? 1. Little interest or pleasure in doing things: not at all 2. Feeling down, depressed, or hopeless: not at all 3. Trouble falling or staying asleep, or sleeping too much: several days 4. Feeling tired or having little energy: several days 5. Poor appetite or overeating: not at all 6. Feeling bad about yourself - or that you are a failure or have let yourself or your family down: not at all 7. Trouble concentrating on things, such as reading the newspaper or watching television: not at all 8. Moving or speaking so slowly that other people could have noticed. Or the opposite - being so fidgety or restless that you have been moving around a lot more than usual: not at all 9. Thoughts that you would be better off or of hurting yourself in some way: not at all Total score: 2 Depression Screening Interpretation: Negative Depression Screening Done: Yes 00381 - PHQ-9 Billing: Yes Source: Developed by Drs. Derrell Allred, Rhonda Vidal, Tejas Saravia and colleagues, with an educational juan pablo from [employer] Thrive Questionnaire Date Thrive assessed: 11/10/23 AUDIT C Alcohol Use Questionnaire (AUDIT-C) 1. How often do you have a drink containing alcohol?: Monthly or less 2. How many drinks containing alcohol do you have on a typical day when you are drinking?: 1 or 2 3. How often do you have six or more drinks on one occasion?: Never Total Score: 1 Score Reviewed/Action Taken: Yes JACOBO-7 AMB Questionnaire JACOBO-7 Date JACOBO - 7 assessed: 11/19/23 Feeling nervous, anxious, or on edge: 1 = Several days Not being able to stop or control worryin = Several days Worrying too much about different things: 1 = Several days Trouble relaxin = Several days Being so restless that it is hard to sit still: 0 = Not at all Becoming easily annoyed or irritable: 1 = Several days Feeling afraid as if something awful might happen: 1 = Several days Total JACOBO-7 score (0-4 normal; 5-9 mild; 10-14 moderate; 15-21 severe): 6 Source: Developed by Drs. Derrell Allred, Rhonda Vidal, Tejas Saravia and colleagues, with an educational juan pablo from [employer] JACBOO-7 Assessment Billing JACOBO-7 Assessment Tool: JACOBO-7 Assessment 37902 Review of Systems Const Denies chills and Denies fever(s) ENT Denies epistaxis and Denies nasal discharge Card Denies chest pain Resp Denies chest congestion, Denies cough and Denies hemoptysis GI Denies diarrhea and Denies nausea Skin/Breast Denies rash Neuro Reports no additional complaints Psych Reports no additional complaints Endo Reports no additional complaints Physical exam (Primary Care) Vital Signs: Last Vital Signs Pulse 71 11/19/23 14:50 BP 132/72 11/19/23 14:50 Pulse Ox 96 11/19/23 14:50 Oxygen Delivery Method Room Air 11/19/23 14:50 BMI result Body Mass Index 27.5 Tobacco/Smoking Status: Tobacco use Status Tobacco use date assessed 11/19/23 11/19/23 14:50 Patient Tobacco Use Status Never used Tobacco 11/19/23 14:50 e-Cigarette/Vaping Use Never Used 11/19/23 14:50 PHQ-9: PHQ-9 Score PHQ-9: Total score 2 11/19/23 14:56 Depression Screening Interpretation: Negative Thrive Assessment: Date of Thrive Assessment Date Thrive assessed 11/10/23 11/19/23 14:50 Const General: cooperative, comfortable and no acute distress Orientation/consciousness: patient oriented x3 HENMT Head: Yes normocephalic Eyes General: appearance normal, both eyes and all related structures Neck Neck: Yes supple Resp Effort & Inspection: normal respiratory effort, no cough and no stridor Cardio Rhythm: regular rhythm Heart sounds: S1 normal heart sound present and S2 normal heart sound present Skin General skin exam: turgor normal Neuro General: patient oriented x3, tone normal and moves all extremities Extrem Right lower extremity: no edema Left lower extremity: no edema Assessment and Plan Assessment & Plan (1) Hypertension, essential: Code(s): I10 - Essential (primary) hypertension (2) Anxiety, generalized: Code(s): F41.1 - Generalized anxiety disorder (3) Lipid disorder: Code(s): E78.9 - Disorder of lipoprotein metabolism, unspecified (4) Osteopenia: Code(s): M85.80 - Other specified disorders of bone density and structure, unspecified site Qualifiers: Osteopenia location: multiple sites Qualified Code(s): M85.89 - Other specified disorders of bone density and structure, multiple sites (5) Thoracic scoliosis: Code(s): M41.9 - Scoliosis, unspecified Qualifiers: Scoliosis type: idiopathic Idiopathic scoliosis type: other Qualified Code(s): M41.24 - Other idiopathic scoliosis, thoracic region (6) Obesity due to excess calories: Code(s): E66.09 - Other obesity due to excess calories Qualifiers: Obesity classification: adult class 1 (BMI 30 - 34.9) Serious obesity comorbidity presence: with serious comorbidity Body mass index: BMI 30.0-30.9 Qualified Code(s): E66.09 - Other obesity due to excess calories; Z68.30 - Body mass index [BMI] 30.0-30.9, adult Plan ?Patient recently had paraesophageal hernia repair She is doing well, still on liquid diet Labs done recently reviewed Blood pressure is stable Medication list reviewed Her depression and anxiety is stable, she is on fluoxetine 10 mg. Hypertension: she is on lisinopril 20 mg.? Blood pressure is well controlled Osteoarthritis multiple joints, Tylenol as needed Continue Zetia for lipid disorder.? Chronic back pain due to history of thoracic scoliosis stable Follow-up 4 months Coding Level of Care Code Est Pt Level 4 (67123) Diagnoses Hypertension, essential I10 Anxiety, generalized F41.1 Lipid disorder E78.9 Osteopenia of multiple sites M85.89 Osteopenia location: multiple sites Other idiopathic scoliosis, thoracic region M41.24 Scoliosis type: idiopathic Idiopathic scoliosis type: other Class 1 obesity due to excess calories with serious comorbidity and body mass index (BMI) of 30.0 to 30.9 in adult E66.09; Z68.30 Obesity classification: adult class 1 (BMI 30 - 34.9) Serious obesity comorbidity presence: with serious comorbidity Body mass index: BMI 30.0-30.9 Additional Codes JACOBO-7 Assessment Billing - JACOBO-7 Assessment Tool: JACOBO-7 Assessment 28408 ([id number])
[2023-11-19 14:50] VITALS: BP 132/72; PULSE 71; O2SAT 96; BMI 27.5
== END 2023-11-19 15:54 | disposition home or self-care (01) ==
PROVIDERS: PCP Internal Medicine; Visit Provider Internal Medicine
DX: I10 Essential (primary) hypertension (principal); E66.09 Other obesity due to excess calories; Z68.30 Body mass index [BMI] 30.0-30.9, adult; F41.1 Generalized anxiety disorder; E78.9 Disorder of lipoprotein metabolism, unspecified; M85.89 Other specified disorders of bone density and structure, multiple sites; M41.24 Other idiopathic scoliosis, thoracic region
CPT/HCPCS: 99214

== ENCOUNTER 2023-12-17 11:03 | Outpatient (AMB) | payer MEDICARE, BC, SELFPAY ==
--- NOTE | 2023-12-17 11:15 | MHC.OFFVISWM ---
Intake VS Expanded 12/17/23 11:23 BP 117/67 Blood Pressure Location Rt brachial Blood Pressure Position Sitting Pulse 89 Pulse Source Pulse Oximeter Temp 97.3 F Temperature Source Tympanic Pulse Oximetry 94 Oxygen Delivery Method Room Air Height 5 ft Weight 154 lb 9.6 oz BMI 30.2 Body Fat % 38.8 Body Fat Mass 60.0 Fat Free Mass 94.6 Visceral Fat Rating 10.0 Body Water % 43.1 Body Water Mass 66.6 Muscle Mass/Score 89.8 Basal Metabolic Rate/Score 1,297 Intake Visit Reasons: (OV) Paraesophageal Hernia Repair 11/09/23 Allergies ibuprofen [From MOTRIN] Allergy (Intermediate, Verified 11/19/23 14:48) HAND SWELLING sulfamethoxazole [From Bactrim] Allergy (Intermediate, Verified 11/19/23 14:48) Rash trimethoprim [From Bactrim] Allergy (Intermediate, Verified 11/19/23 14:48) Rash alendronate sodium [From FOSAMAX] Allergy (Mild, Verified 11/19/23 14:48) JOINT PAIN simvastatin Adverse Reaction (Intermediate, Verified 11/19/23 14:48) leg cramps HPI HPI Comments History of Present Illness Details Patient is a pleasant 68-year-old female who returns to the office today in follow-up. She is approximately 6 weeks post hiatal hernia repair performed on 11/09/2023. Weight today is 154.6 with a BMI of 27.4. No complaint of reflux or pain. Meal plan: Celebrate rebuild 1 scoop in 8 oz almond milk 3 scrambled eggs rare SF pudding cup tomato chick pea, carrot, spices, chicken. small bowl celebrate protein bar drinking 48 oz fluids daily Exercise plan: sister has PF membership [facility] Medical History Obesity due to excess calories Paraesophageal hernia Dysphagia Thoracic scoliosis GERD (gastroesophageal reflux disease) Melena Morbid obesity Lipid disorder Hypertension, essential Anxiety, generalized Surgical History Hx of cystoscopy Hx of needle biopsy History of esophagogastroduodenoscopy (EGD) History of colonoscopy History of tubal ligation Hx of cholecystectomy Family History Other Mental health disorder Substance use disorder Social History Household Members: None Housing: Other Housing Other:: Sr living Are you a primary healthcare network pricing consultant to a significant other at home: No Do you presently have visiting nurse or other home services: No Alcohol intake: current Alcohol intake frequency: does not drink Alcohol type: beer and wine Comment: uses cane occasionally Patient Tobacco Use Status: Never used Tobacco e-Cigarette/Vaping Use: Never Used Second Hand Smoke Exposure: No service: No Current occupational status: retired Cognitive needs: No Hearing needs: No Vision needs: Yes Physical Exam Const General: healthy appearing and no acute distress Resp Effort & Inspection: normal respiratory effort Auscultation: clear to auscultation bilaterally Cardio Rate: regular rate Rhythm: regular rhythm GI Auscultation: normal bowel sounds Extrem General: Yes normal to inspection Assessment & Plan Assessment & Plan (1) Obesity: Code(s): E66.9 - Obesity, unspecified Qualifiers: Obesity type: due to excess calories Obesity classification: adult class 1 (BMI 30 - 34.9) Serious obesity comorbidity presence: with serious comorbidity Body mass index: BMI 33.0-33.9 Qualified Code(s): E66.09 - Other obesity due to excess calories; Z68.33 - Body mass index [BMI] 33.0-33.9, adult Plan: Celebrate rebuild 1 scoop in 8 oz almond milk 2 scrambled eggs 1/2-3/4 c fresh fruit 6 forks protein and 5-6 forks veg celebrate protein bar go to [employer] and start cardio- walking on treadmill/stationary bike Coding Level of Care Code Global (11941) Diagnoses Class 1 obesity due to excess calories with serious comorbidity and body mass index (BMI) of 33.0 to 33.9 in adult E66.09; Z68.33 Obesity type: due to excess calories Obesity classification: adult class 1 (BMI 30 - 34.9) Serious obesity comorbidity presence: with serious comorbidity Body mass index: BMI 33.0-33.9
[2023-12-17 11:23] VITALS: BP 117/67; PULSE 89; TEMP 36.3; O2SAT 94; BMI 30.2
== END 2023-12-17 11:49 | disposition home or self-care (01) ==
PROVIDERS: PCP Internal Medicine; Visit Provider Physician Assistant Surgical
DX: E66.09 Other obesity due to excess calories (principal); Z68.33 Body mass index [BMI] 33.0-33.9, adult
CPT/HCPCS: 99024

== ENCOUNTER → 2023-12-17 11:03 | Outpatient (BNVA) | payer MEDICARE, BC, SELFPAY | PROVIDERS: PCP Internal Medicine; Visit Provider Physician Assistant Surgical | DX: E66.9 Obesity, unspecified (principal); Z48.815 Encounter for surgical aftercare following surgery on the digestive system; Z71.3 Dietary counseling and surveillance; Z68.33 Body mass index [BMI] 33.0-33.9, adult; Z87.2 Personal history of diseases of the skin and subcutaneous tissue; Z98.890 Other specified postprocedural states | CPT/HCPCS: 99212 ==

== ENCOUNTER 2024-02-18 12:49 | Outpatient (AMB) | payer MEDICARE, BC, SELFPAY ==
--- NOTE | 2024-02-18 12:50 | A.OFFVIS_ITS ---
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: No Allergies ibuprofen [From MOTRIN] Allergy (Intermediate, Verified 02/18/24 13:02) HAND SWELLING sulfamethoxazole [From Bactrim] Allergy (Intermediate, Verified 02/18/24 13:02) Rash trimethoprim [From Bactrim] Allergy (Intermediate, Verified 02/18/24 13:02) Rash alendronate sodium [From FOSAMAX] Allergy (Mild, Verified 02/18/24 13:02) JOINT PAIN simvastatin Adverse Reaction (Intermediate, Verified 02/18/24 13:02) leg cramps Medication List - Last Reconciled 02/18/24 by MING Mueller ezetimibe 10 mg PO DAILY 90 days fluoxetine 10 mg PO DAILY 90 days lisinopril 20 mg PO DAILY 90 days thiamine HCl (vitamin B1) 100 mg PO DAILY vitamin A palmitate 10,000 units PO DAILY HPI Comments Details: Patient is a pleasant 69-year-old female who returns to the office today in follow-up. She is approximately 3 months post hiatal hernia repair performed on 11/09/2023. Weight today is 145.8 with a BMI of 28.5. No complaint of reflux or pain. Tolerating meal plan and is overall very satisfied. Following the right bmi kate plan Meal plan: Celebrate rebuild 1 scoop in 8 oz almond milk celebrate bar 2 scrambled eggs 1/2-3/4 c fresh fruit 7 forks protein and 7 forks veg celebrate protein bar drinking 48 oz fluids daily Exercise plan: walking outside daily sister has membership [facility] Medical History Obesity due to excess calories Paraesophageal hernia Dysphagia Thoracic scoliosis GERD (gastroesophageal reflux disease) Melena Morbid obesity Lipid disorder Hypertension, essential Anxiety, generalized Surgical History (Updated 02/18/24 @ 13:09 by Stephani Riojas CMA) Hx of hernia repair Hx of cystoscopy Hx of needle biopsy History of esophagogastroduodenoscopy (EGD) History of colonoscopy History of tubal ligation Hx of cholecystectomy Family History Other Mental health disorder Substance use disorder Social History Household Members: None Housing: Other Housing Other:: Sr living Are you a primary long term acute care registered nurse to a significant other at home: No Do you presently have visiting nurse or other home services: No Alcohol intake: current Alcohol intake frequency: does not drink Alcohol type: beer and wine Comment: uses cane occasionally Patient Tobacco Use Status: Never used Tobacco e-Cigarette/Vaping Use: Never Used Second Hand Smoke Exposure: No service: No Current occupational status: retired Cognitive needs: No Hearing needs: No Vision needs: Yes Assessment & Plan Assessment & Plan (1) S/P repair of paraesophageal hernia: Code(s): Z98.890 - Other specified postprocedural states; Z87.19 - Personal history of other diseases of the digestive system Category: Surgical Plan: Patient has been making progress and is very happy with how she feels. She no longer has any reflux or upper abdominal pain. Her daughter will be leaving her house where she had been recovering from surgery herself and the patient will now be able to get back to her routine. She will discuss with her sister's about returning to go to [employer] with them as the patient herself does not drive. We will have her return to the office in approximately 2 months. Additionally, she continues to use the right BMI kate. text with any questions or concerns Orders: Orders Vitamin B1 Today E50.9 - Vitamin A deficiency, unspecified, E51.9 - Thiamine deficiency, unspecified, E53.8 - Deficiency of other specified B group vitamins, Z87.19 - Personal history of other diseases of the digestive system, Z98.890 - Other specified postprocedural states Vitamin A Today E50.9 - Vitamin A deficiency, unspecified, E51.9 - Thiamine deficiency, unspecified, E53.8 - Deficiency of other specified B group vitamins, Z87.19 - Personal history of other diseases of the digestive system, Z98.890 - Other specified postprocedural states Vitamin B12 and Folate Today E50.9 - Vitamin A deficiency, unspecified, E51.9 - Thiamine deficiency, unspecified, E53.8 - Deficiency of other specified B group vitamins, Z87.19 - Personal history of other diseases of the digestive system, Z98.890 - Other specified postprocedural states
[2024-02-18 12:59] VITALS: BP 148/78; PULSE 71; TEMP 36.2; O2SAT 95; BMI 29.1
== END 2024-02-18 13:34 | disposition home or self-care (01) ==
PROVIDERS: PCP Internal Medicine; Visit Provider Physician Assistant Surgical
DX: E66.3 Overweight (principal); Z68.29 Body mass index [BMI] 29.0-29.9, adult; Z87.19 Personal history of other diseases of the digestive system
CPT/HCPCS: 99213

== ENCOUNTER → 2024-02-18 12:49 | Outpatient (BNVA) | payer MEDICARE, BC, SELFPAY | PROVIDERS: PCP Internal Medicine; Visit Provider Physician Assistant Surgical | DX: Z98.890 Other specified postprocedural states (principal); Z87.19 Personal history of other diseases of the digestive system | CPT/HCPCS: 99212 ==

== ENCOUNTER 2024-03-14 11:05 | Outpatient (AMB) | payer MEDICARE, BC, SELFPAY ==
[2024-03-14 11:07] VITALS: BP 120/68; PULSE 55; O2SAT 96; BMI 28.6
--- NOTE | 2024-03-14 11:07 | MHC.PC.OV ---
Vital Signs 03/14/24 11:07 Height 5 ft Weight 146 lb 4 oz BMI 28.6 BP 120/68 Blood Pressure Location Rt brachial Position Sitting Pulse 55 Pulse Source Pulse Oximeter Pulse Oximetry (%) 96 Oxygen Delivery Method Room Air Intake Visit Reasons: Annual PE/Secondary pays for PE Allergies ibuprofen [From MOTRIN] Allergy (Intermediate, Verified 03/14/24 11:07) HAND SWELLING sulfamethoxazole [From Bactrim] Allergy (Intermediate, Verified 03/14/24 11:07) Rash trimethoprim [From Bactrim] Allergy (Intermediate, Verified 03/14/24 11:07) Rash alendronate sodium [From FOSAMAX] Allergy (Mild, Verified 03/14/24 11:07) JOINT PAIN simvastatin Adverse Reaction (Intermediate, Verified 03/14/24 11:07) leg cramps Medication List - Last Reconciled 03/14/24 by Latricia Hebert MD ezetimibe 10 mg PO DAILY 90 days fluoxetine 10 mg PO DAILY 90 days lisinopril 20 mg PO DAILY 90 days thiamine HCl (vitamin B1) 100 mg PO DAILY vitamin A palmitate 10,000 units PO DAILY Tobacco use date assessed: 03/14/24 Fall risk assessment: No Falls in past year Last assessed Fall Risk: 03/14/24 Dental Screening Dental Screen Date: 03/14/24 Did you have a dental visit in the last 12 months?: Yes Did you have a dental problem in the last 6 months where you did not have access to dental care?: No Was dental information given to patient?: Patient has dentist HPI Annual PE/Secondary pays for PE HPI Details Patient is a 69-year-old female came in today for physical examination She is due for her regular follow-up as well Blood pressure is well-controlled Mammogram is due in March Colonoscopy was September of this year Patient is no longer seeing OBGYN. She is doing very well, making good food choices Losing weight She also was 2 weight loss program [facility] for continuing follow-up. Anxiety stable Medication list reviewed Labs are up-to-date [facility] Medical History Obesity due to excess calories Paraesophageal hernia Dysphagia Thoracic scoliosis GERD (gastroesophageal reflux disease) Melena Morbid obesity Lipid disorder Hypertension, essential Anxiety, generalized Surgical History Hx of hernia repair Hx of cystoscopy Hx of needle biopsy History of esophagogastroduodenoscopy (EGD) History of colonoscopy History of tubal ligation Hx of cholecystectomy Family History Other Mental health disorder Substance use disorder Social History Household Members: None Housing: Other Housing Other:: Sr living Are you a primary client care representative to a significant other at home: No Do you presently have visiting nurse or other home services: No Alcohol intake: current Alcohol intake frequency: does not drink Alcohol type: beer and wine Comment: uses cane occasionally Patient Tobacco Use Status: Never used Tobacco e-Cigarette/Vaping Use: Never Used Second Hand Smoke Exposure: No service: No Current occupational status: retired Cognitive needs: No Hearing needs: No Vision needs: Yes Questionnaire PHQ-9 Over the last 2 weeks, how often have you been bothered by any of the following problems? 1. Little interest or pleasure in doing things: not at all 2. Feeling down, depressed, or hopeless: several days 3. Trouble falling or staying asleep, or sleeping too much: several days 4. Feeling tired or having little energy: several days 5. Poor appetite or overeating: several days 6. Feeling bad about yourself - or that you are a failure or have let yourself or your family down: not at all 7. Trouble concentrating on things, such as reading the newspaper or watching television: not at all 8. Moving or speaking so slowly that other people could have noticed. Or the opposite - being so fidgety or restless that you have been moving around a lot more than usual: several days 9. Thoughts that you would be better off or of hurting yourself in some way: not at all Total score: 5 Depression Screening Interpretation: Negative Depression Screening Done: Yes 62767 - PHQ-9 Billing: Yes Source: Developed by Drs. Derrell Allred, Rhonda Vidal, Tejas Saravia and colleagues, with an educational juan pablo from [employer]. Thrive Questionnaire Date Thrive assessed: 03/14/24 I am a: Patient What is your living situation today?: I have a steady place to live Within the past 12 months, did the food you bought not last and you didn't have the money to get more?: Never true Within the past 12 months, did you worry whether your food would run out before you got money to buy more?: Never true Do you have trouble paying for medicines?: No Do you have trouble getting transportation to medical appointments?: No Do you have trouble paying your heating and electricity bill?: No Do you have trouble taking care of your child, family member or friend?: No Do you have trouble with day-to-day activities such as bathing, preparing meals, shopping, managing finances, etc.?: No Are you currently unemployed and looking for a job?: No Are you interested in more education?: No Please select the resources that you would like help with: None Currently or been in a relationship where the following occur: no concerns reported THRIVE Score: 0 AUDIT C Alcohol Use Questionnaire (AUDIT-C) 1. How often do you have a drink containing alcohol?: Monthly or less 2. How many drinks containing alcohol do you have on a typical day when you are drinking?: 1 or 2 3. How often do you have six or more drinks on one occasion?: Never Total Score: 1 Score Reviewed/Action Taken: Yes JACOBO-7 AMB Questionnaire JACOBO-7 Date JACOBO - 7 assessed: 03/14/24 Feeling nervous, anxious, or on edge: 1 = Several days Not being able to stop or control worryin = Several days Worrying too much about different things: 1 = Several days Trouble relaxin = Several days Being so restless that it is hard to sit still: 0 = Not at all Becoming easily annoyed or irritable: 1 = Several days Feeling afraid as if something awful might happen: 1 = Several days Total JACOBO-7 score (0-4 normal; 5-9 mild; 10-14 moderate; 15-21 severe): 6 Source: Developed by Drs. Derrell Allred, Rhonda Vidal, Tejas Saravia and colleagues, with an educational juan pablo from [employer] JACOBO-7 Assessment Billing JACOBO-7 Assessment Tool: JACOBO-7 Assessment 51740 Review of Systems Const Denies chills, Denies fever(s) and Denies headache(s) Eyes Denies blurry vision ENT Denies headache(s), Denies nasal discharge, Denies nasal obstruction, Denies odynophagia and Denies sinus pain Card Denies chest pain at rest and Denies chest pain with activity Resp Denies cough and Denies hemoptysis GI Denies diarrhea, Denies odynophagia, Denies vomiting and Denies hematemesis Reports as per HPI Musc Denies abnormal gait Skin/Breast Reports as per HPI Neuro Denies Neuro-related abnormal movements, Denies Abnormal speech present, Denies abnormal gait, Denies headache(s) and Denies Sensory deficit (Neuro) Psych Denies mood swings and Denies paranoia Endo Reports as per HPI Nura/Lymph Reports as per HPI Aller/Immun Reports as per HPI Physical exam (Primary Care) Vital Signs: Last Vital Signs Pulse 55 03/14/24 11:07 BP 120/68 03/14/24 11:07 Pulse Ox 96 03/14/24 11:07 Oxygen Delivery Method Room Air 03/14/24 11:07 BMI result Body Mass Index 28.6 Tobacco/Smoking Status: Tobacco use Status Tobacco use date assessed 03/14/24 03/14/24 11:09 Patient Tobacco Use Status Never used Tobacco 03/14/24 11:09 e-Cigarette/Vaping Use Never Used 03/14/24 11:09 PHQ-9: PHQ-9 Score PHQ-9: Total score 5 03/14/24 11:36 Depression Screening Interpretation: Negative Thrive Assessment: Date of Thrive Assessment Date Thrive assessed 03/14/24 03/14/24 11:09 Currently or been in a relationship where the following occur: no concerns reported Const General: cooperative, comfortable and no acute distress Orientation/consciousness: patient oriented x3 HENMT Head: Yes normocephalic and Yes atraumatic Eyes General: appearance normal, both eyes and all related structures Pupils: Equal, round and reactive pupils present EOM: EOMs intact bilaterally Neck Neck: Yes supple and No lymphadenopathy Thyroid: Thyroid normal Lymphatic: no lymphadenopathy noted Resp Effort & Inspection: normal respiratory effort and able to speak in complete sentences Auscultation: clear to auscultation bilaterally Cardio Heart sounds: S1 normal heart sound present and S2 normal heart sound present GI Palpation (GI): Soft to palpation and nontender Auscultation: normal bowel sounds General: Yes no CVA tenderness Back/Spine/Pelvis Back: no CVA tenderness Back/spine/pelvis image: 1. Scoliosis Skin General skin exam: elasticity normal and turgor normal Neuro General: patient oriented x3 and gait normal Cranial nerves: Yes Equal, round and reactive pupils present Speech: No Abnormal speech present Sensory Exam: No Sensory deficit (Neuro) Coordination: Romberg test negative Extrem General: Yes normal exam except as noted and No edema Assessment and Plan Assessment & Plan (1) Encounter for general adult medical examination with abnormal findings: Code(s): Z00.01 - Encounter for general adult medical examination with abnormal findings (2) Hypertension, essential: Code(s): I10 - Essential (primary) hypertension (3) Anxiety, generalized: Code(s): F41.1 - Generalized anxiety disorder (4) Lipid disorder: Code(s): E78.9 - Disorder of lipoprotein metabolism, unspecified (5) Osteopenia: Code(s): M85.80 - Other specified disorders of bone density and structure, unspecified site Qualifiers: Osteopenia location: multiple sites Qualified Code(s): M85.89 - Other specified disorders of bone density and structure, multiple sites (6) Thoracic scoliosis: Code(s): M41.9 - Scoliosis, unspecified Qualifiers: Idiopathic scoliosis type: other Scoliosis type: idiopathic Qualified Code(s): M41.24 - Other idiopathic scoliosis, thoracic region (7) Obesity due to excess calories: Code(s): E66.09 - Other obesity due to excess calories Qualifiers: Body mass index: BMI 30.0-30.9 Obesity classification: adult class 1 (BMI 30 - 34.9) Serious obesity comorbidity presence: with serious comorbidity Qualified Code(s): E66.09 - Other obesity due to excess calories; Z68.30 - Body mass index [BMI] 30.0-30.9, adult Plan ?Patient is a 69-year-old female came in today for physical examination She is due for her regular follow-up as well Blood pressure is well-controlled Mammogram is due in March Colonoscopy was September of this year Patient is no longer seeing OBGYN. She is doing very well, making good food choices Losing weight She also was 2 weight loss program [facility] for continuing follow-up. Anxiety stable patient is on fluoxetine 10 mg Hypertension: Patient is doing well with lisinopril 20 mg Medication list reviewed Labs are up-to-date Patient declined breast exam today And she failed tandem walk She has a history of paraesophageal hernia repair Osteoarthritis multiple joints, Tylenol as needed Continue Zetia for lipid disorder.? Follow-up 4 months physical exam 1 year Orders: Orders Complete Blood Count Auto Diff Today E78.9 - Disorder of lipoprotein metabolism, unspecified, F41.1 - Generalized anxiety disorder, I10 - Essential (primary) hypertension, M41.24 - Other idiopathic scoliosis, thoracic region, Z00.01 - Encounter for general adult medical examination with abnormal findings Comprehensive [place]. Panel Fast Today E78.9 - Disorder of lipoprotein metabolism, unspecified, F41.1 - Generalized anxiety disorder, I10 - Essential (primary) hypertension, M41.24 - Other idiopathic scoliosis, thoracic region, Z00.01 - Encounter for general adult medical examination with abnormal findings Vitamin B12 Today E78.9 - Disorder of lipoprotein metabolism, unspecified, F41.1 - Generalized anxiety disorder, I10 - Essential (primary) hypertension, M41.24 - Other idiopathic scoliosis, thoracic region, Z00.01 - Encounter for general adult medical examination with abnormal findings Lipid Panel Today E78.9 - Disorder of lipoprotein metabolism, unspecified, F41.1 - Generalized anxiety disorder, I10 - Essential (primary) hypertension, M41.24 - Other idiopathic scoliosis, thoracic region, Z00.01 - Encounter for general adult medical examination with abnormal findings Vitamin D 25-OH (D2 and D3) Today E78.9 - Disorder of lipoprotein metabolism, unspecified, F41.1 - Generalized anxiety disorder, I10 - Essential (primary) hypertension, M41.24 - Other idiopathic scoliosis, thoracic region, Z00.01 - Encounter for general adult medical examination with abnormal findings Coding Level of Care Code Est Pt Level 3 (63303) Est Pt Prev Care >65y(17621) Diagnoses Encounter for general adult medical examination with abnormal findings Z00.01 Hypertension, essential I10 Anxiety, generalized F41.1 Lipid disorder E78.9 Osteopenia of multiple sites M85.89 Osteopenia location: multiple sites Other idiopathic scoliosis, thoracic region M41.24 Idiopathic scoliosis type: other Scoliosis type: idiopathic Class 1 obesity due to excess calories with serious comorbidity and body mass index (BMI) of 30.0 to 30.9 in adult E66.09; Z68.30 Body mass index: BMI 30.0-30.9 Obesity classification: adult class 1 (BMI 30 - 34.9) Serious obesity comorbidity presence: with serious comorbidity Additional Codes JACOBO-7 Assessment Billing - JACOBO-7 Assessment Tool: JACOBO-7 Assessment 54289 ([id number])
== END 2024-03-14 11:38 | disposition home or self-care (01) ==
PROVIDERS: PCP Internal Medicine; Visit Provider Internal Medicine
DX: Z00.00 Encounter for general adult medical examination without abnormal findings (principal); I10 Essential (primary) hypertension; E66.09 Other obesity due to excess calories; Z68.30 Body mass index [BMI] 30.0-30.9, adult; M85.89 Other specified disorders of bone density and structure, multiple sites; F41.1 Generalized anxiety disorder; E78.9 Disorder of lipoprotein metabolism, unspecified; M41.24 Other idiopathic scoliosis, thoracic region
CPT/HCPCS: 99397

== ENCOUNTER 2024-03-14 11:39 | Outpatient (REF) | payer MEDICARE, BC, SELFPAY ==
[2024-03-14 14:15] LABS: Folate 9.2 ng/mL (> or = 4.0); Vitamin B12 180 pg/mL (200-900)
[2024-03-19 00:32] LABS: Vitamin A 49 mcg/dL (38-98)
[2024-03-20 13:58] LABS: Vitamin B1 8 nmol/L (8-30)
== END 2024-03-14 11:40 | disposition home or self-care (01) ==
LOC: HO.HMGCLDS 11:39
PROVIDERS: PCP Internal Medicine; Visit Provider Physician Assistant Surgical
DX: E51.9 Thiamine deficiency, unspecified (principal); E53.8 Deficiency of other specified B group vitamins; E50.9 Vitamin A deficiency, unspecified; Z98.890 Other specified postprocedural states; Z87.19 Personal history of other diseases of the digestive system
CPT/HCPCS: 36415; 82607; 82746; 84425; 84590

== ENCOUNTER 2024-04-11 07:49 | Outpatient (REF) | payer MEDICARE, BC, SELFPAY | END 2024-04-11 07:50 | disposition home or self-care (01) | LOC: HO.MAMMO 07:49 | PROVIDERS: PCP Internal Medicine; Visit Provider Internal Medicine | DX: Z12.31 Encounter for screening mammogram for malignant neoplasm of breast (principal) | CPT/HCPCS: 77063; 77067 ==

== ENCOUNTER → 2024-04-11 08:15 | Outpatient (BNV) | payer MEDICARE, BC, SELFPAY | PROVIDERS: PCP Internal Medicine; Visit Provider Radiology Diagnostic Radiology | DX: Z12.31 Encounter for screening mammogram for malignant neoplasm of breast (principal) | CPT/HCPCS: 77063; 77067 ==

== ENCOUNTER 2024-04-17 11:02 | Outpatient (REF) | payer MEDICARE, BC, SELFPAY ==
[2024-04-17 12:11] LABS: MANUAL DIFF FLAG NO
[2024-04-17 12:44] LABS: Basophils Absolute Auto 0.1 X10*3/uL (0.0-0.2); Eosinophils Absolute Auto 0.1 X10*3/uL (0.0-0.4); Eosinophils Percent Auto 2.1 % (0-4); Hematocrit 41.9 % (37.0-47.0); Hemoglobin 13.2 g/dl (12.0-16.0); Imm Gran Abs Auto 0.03 X10*3/uL (0.00-0.03); Imm Gran Pct Auto 0.6 % (0.0-0.4); Lymphocytes Absolute Auto 1.2 X10*3/uL (1.2-4.9); Lymphocytes Percent Auto 23.7 % (20-40); Mean Corpuscular HGB Conc 31.5 g/dl (31.0-35.0); Mean Corpuscular Hemoglobin 31.1 pg (27.0-33.0); Mean Corpuscular Volume 98.8 fL (80.0-98.0); Mean Platelet Volume 10.1 fL (9.4-12.3); Monocytes Absolute Auto 0.4 X10*3/uL (0.1-1.2); Monocytes Percent Auto 7.5 % (2-11); Neutrophils Absolute Auto 3.4 x10*3/uL (2.0-8.3); Neutrophils Percent Auto 65.1 % (45-73); Platelet Count 190 X10*3/uL (160-400); Red Blood Count 4.24 X10*6/uL (4.20-5.50); Red Cell Distribution Width 13.6 % (11.0-16.0); White Blood Count 5.2 X10*3/uL (4.8-10.8)
[2024-04-17 13:16] LABS: Alanine Aminotransferase 7 U/L (0-31); Albumin Level 4.5 g/dL (3.5-5.0); Alkaline Phosphatase 53 U/L (39-117); Anion Gap 12 (12-20); Aspartate Amino Transferase 14 U/L (5-31); Bilirubin Total 0.7 mg/dL (0.0-1.0); Blood Urea Nitrogen 21 mg/dL (9-16); Calcium 9.7 mg/dL (8.4-10.2); Carbon Dioxide 31 mmol/L (22-29); Chloride 104 mmol/L (96-108); Cholesterol 165 mg/dL (<200); Estimated Glomerular Filt Rate 59; Glucose Fasting 92 mg/dL (60-99); HDL Cholesterol 52 mg/dL (>40); LDL Cholesterol Calculated 91 mg/dL (<100); Potassium 4.5 mmol/L (3.3-5.1); Sodium 142 mmol/L (135-145); Total Protein 6.7 g/dL (6.5-8.0); Triglycerides 113 mg/dL (<150)
[2024-04-17 13:45] LABS: Vitamin B12 501 pg/mL (200-900)
[2024-04-22 14:13] LABS: Vitamin D 25-OH, D2 <4 ng/mL; Vitamin D 25-OH, D3 33 ng/mL; Vitamin D 25-OH, Total 33 ng/mL (30-100)
== END 2024-04-17 11:03 | disposition home or self-care (01) ==
LOC: HO.LAB 11:02
PROVIDERS: PCP Internal Medicine; Visit Provider Physician Assistant Surgical
DX: Z00.01 Encounter for general adult medical examination with abnormal findings (principal); M41.24 Other idiopathic scoliosis, thoracic region; E78.9 Disorder of lipoprotein metabolism, unspecified; F41.1 Generalized anxiety disorder; I10 Essential (primary) hypertension; E51.9 Thiamine deficiency, unspecified; E53.8 Deficiency of other specified B group vitamins; E50.9 Vitamin A deficiency, unspecified; Z98.890 Other specified postprocedural states; Z87.19 Personal history of other diseases of the digestive system
CPT/HCPCS: 36415; 80053; 80061; 82306; 82607; 85025; 99212

== ENCOUNTER 2024-04-17 11:02 | Outpatient (AMB) | payer MEDICARE, BC, SELFPAY ==
--- NOTE | 2024-04-17 11:06 | MHC.OFFVISWM ---
VS Expanded 04/17/24 11:18 BP 110/61 Blood Pressure Location Rt brachial Blood Pressure Position Sitting Pulse 83 Pulse Source Pulse Oximeter Temp 97.0 F Temperature Source Tympanic Pulse Oximetry 96 Oxygen Delivery Method Room Air Height 5 ft Weight 142 lb 6.4 oz BMI 27.8 Body Fat % 39.8 Body Fat Mass 56.6 Fat Free Mass 85.6 Visceral Fat Rating 11.0 Body Water % 42.2 Body Water Mass 60.0 Muscle Mass/Score 81.2 Basal Metabolic Rate/Score 1,188 Intake Visit Reasons: (OV) Paraesophageal Hernia Repair 11/09/23 Allergies ibuprofen [From MOTRIN] Allergy (Intermediate, Verified 04/17/24 11:20) HAND SWELLING sulfamethoxazole [From Bactrim] Allergy (Intermediate, Verified 04/17/24 11:20) Rash trimethoprim [From Bactrim] Allergy (Intermediate, Verified 04/17/24 11:20) Rash alendronate sodium [From FOSAMAX] Allergy (Mild, Verified 04/17/24 11:20) JOINT PAIN simvastatin Adverse Reaction (Intermediate, Verified 04/17/24 11:20) leg cramps HPI Comments Details: Patient is a pleasant 69-year-old female who returns to the office today in follow-up. She is approximately 5 months post hiatal hernia repair performed on 11/09/2023. Weight today is 142.4 with a BMI of 27.8. No complaint of reflux or pain. Tolerating meal plan and is overall very satisfied. Following the right bmi kate plan. She states she was away on vacation earlier in the month and had one episode of abdominal discomfort after eating a whole cheeseburger. She was on vacation in the early part the month as above however has not returned to the gym with her sister. She is planning on doing this starting this week. Meal plan: Celebrate rebuild 1 scoop in 8 oz almond milk celebrate bar 2 scrambled eggs 1/2-3/4 c fresh fruit 7 forks protein and 7 forks veg celebrate protein bar drinking 48 oz fluids daily Exercise plan: walking outside daily sister has membership [facility] Medical History Obesity due to excess calories Paraesophageal hernia Dysphagia Thoracic scoliosis GERD (gastroesophageal reflux disease) Melena Morbid obesity Lipid disorder Hypertension, essential Anxiety, generalized Surgical History Hx of hernia repair Hx of cystoscopy Hx of needle biopsy History of esophagogastroduodenoscopy (EGD) History of colonoscopy History of tubal ligation Hx of cholecystectomy Family History Other Mental health disorder Substance use disorder Social History Household Members: None Housing: Other Housing Other:: Sr living Are you a primary palliative care coordinator to a significant other at home: No Do you presently have visiting nurse or other home services: No Alcohol intake: current Alcohol intake frequency: does not drink Alcohol type: beer and wine Comment: uses cane occasionally Patient Tobacco Use Status: Never used Tobacco e-Cigarette/Vaping Use: Never Used Second Hand Smoke Exposure: No service: No Current occupational status: retired Cognitive needs: No Hearing needs: No Vision needs: Yes Physical Exam Vital Signs: Last Vital Signs Temp 97.0 F 04/17/24 11:18 Pulse 83 04/17/24 11:18 BP 110/61 04/17/24 11:18 Pulse Ox 96 04/17/24 11:18 Oxygen Delivery Method Room Air 04/17/24 11:18 BMI result Body Mass Index 27.8 Const General: healthy appearing and no acute distress Resp Effort & Inspection: normal respiratory effort Auscultation: clear to auscultation bilaterally Cardio Rate: regular rate Rhythm: regular rhythm GI Auscultation: normal bowel sounds Extrem General: Yes normal to inspection Assessment & Plan Assessment & Plan (1) S/P repair of paraesophageal hernia: Code(s): Z98.890 - Other specified postprocedural states; Z87.19 - Personal history of other diseases of the digestive system Category: Surgical Plan: Patient was encouraged to continue to follow the meal plan. She was encouraged to return to the gym, adding in weight training under the supervision of a animal attendants and trainers. We will have her return to the office in 4-6 weeks. She was encouraged to text weekly with any questions as well as her weights.
[2024-04-17 11:18] VITALS: BP 110/61; PULSE 83; TEMP 36.1; O2SAT 96; BMI 27.8
== END 2024-04-17 11:52 | disposition home or self-care (01) ==
PROVIDERS: PCP Internal Medicine; Visit Provider Physician Assistant Surgical
DX: E66.3 Overweight (principal); Z68.27 Body mass index [BMI] 27.0-27.9, adult; Z87.19 Personal history of other diseases of the digestive system; Z98.890 Other specified postprocedural states
CPT/HCPCS: 99213

== ENCOUNTER 2024-06-28 12:39 | Outpatient (AMB) | payer MEDICARE, BC, SELFPAY ==
--- NOTE | 2024-06-28 12:52 | A.OFFVIS_ITS ---
Intake Visit Reasons: (OV) Paraesophageal Hernia Repair 11/09/23 Allergies ibuprofen [From MOTRIN] Allergy (Intermediate, Verified 04/17/24 11:20) HAND SWELLING sulfamethoxazole [From Bactrim] Allergy (Intermediate, Verified 04/17/24 11:20) Rash trimethoprim [From Bactrim] Allergy (Intermediate, Verified 04/17/24 11:20) Rash alendronate sodium [From FOSAMAX] Allergy (Mild, Verified 04/17/24 11:20) JOINT PAIN simvastatin Adverse Reaction (Intermediate, Verified 04/17/24 11:20) leg cramps PFSH Medical History Obesity due to excess calories Paraesophageal hernia Dysphagia Thoracic scoliosis GERD (gastroesophageal reflux disease) Melena Morbid obesity Lipid disorder Hypertension, essential Anxiety, generalized Surgical History Hx of hernia repair Hx of cystoscopy Hx of needle biopsy History of esophagogastroduodenoscopy (EGD) History of colonoscopy History of tubal ligation Hx of cholecystectomy Family History Other Mental health disorder Substance use disorder Social History Household Members: None Housing: Other Housing Other:: Sr living Are you a primary career portals teacher to a significant other at home: No Do you presently have visiting nurse or other home services: No Alcohol intake: current Alcohol intake frequency: does not drink Alcohol type: beer and wine Comment: uses cane occasionally Patient Tobacco Use Status: Never used Tobacco e-Cigarette/Vaping Use: Never Used Second Hand Smoke Exposure: No service: No Current occupational status: retired Cognitive needs: No Hearing needs: No Vision needs: Yes
--- NOTE | 2024-06-28 13:01 | MHC.OFFVISWM ---
VS Expanded 06/28/24 13:06 BP 130/73 Blood Pressure Location Rt brachial Blood Pressure Position Sitting Pulse 65 Pulse Source Pulse Oximeter Temp 97.1 F Temperature Source Temporal Artery Scan Pulse Oximetry 96 Oxygen Delivery Method Room Air Height 5 ft Weight 136 lb 12.8 oz BMI 26.7 Body Fat % 38.4 Body Fat Mass 52.4 Fat Free Mass 84.2 Visceral Fat Rating 10.0 Body Water % 43.2 Body Water Mass 59.0 Muscle Mass/Score 79.8 Basal Metabolic Rate/Score 1,166 Intake Visit Reasons: (OV) Paraesophageal Hernia Repair 11/09/23 Online User Experience Strategist Required: No Allergies ibuprofen [From MOTRIN] Allergy (Intermediate, Verified 06/28/24 13:08) HAND SWELLING sulfamethoxazole [From Bactrim] Allergy (Intermediate, Verified 06/28/24 13:08) Rash trimethoprim [From Bactrim] Allergy (Intermediate, Verified 06/28/24 13:08) Rash alendronate sodium [From FOSAMAX] Allergy (Mild, Verified 06/28/24 13:08) JOINT PAIN simvastatin Adverse Reaction (Intermediate, Verified 06/28/24 13:08) leg cramps Medication List - Last Reconciled 06/28/24 by MING Mueller cyanocobalamin (vitamin B-12) 500 mcg PO DAILY 90 days ezetimibe 10 mg PO DAILY 90 days fluoxetine 10 mg PO DAILY 90 days HPI Comments Details: Patient is a pleasant 69-year-old female who returns to the office today in follow-up. She is approximately 8 months post hiatal hernia repair performed on 11/09/2023. Weight today is 136.8 with a BMI of 26.7. No complaint of reflux or pain. Tolerating meal plan and is overall very satisfied. Following the right bmi kate plan. She states she was away on vacation earlier in the month and had one episode of abdominal discomfort after eating a whole cheeseburger. She was on vacation in the early part the month as above however has not returned to the gym with her sister. She is planning on doing this starting this week. Meal plan: peaches/pears/tomatoes/peppers or 2 scrambled eggs 7 forks protein and 7 forks veg x 2 drinking 48 oz fluids daily Exercise plan: walking outside 3-4 x per week 2-3 x per week PF, stationary bike 8 miles, weights. [facility] Medical History Obesity due to excess calories Paraesophageal hernia Dysphagia Thoracic scoliosis GERD (gastroesophageal reflux disease) Melena Morbid obesity Lipid disorder Hypertension, essential Anxiety, generalized Surgical History Hx of hernia repair Hx of cystoscopy Hx of needle biopsy History of esophagogastroduodenoscopy (EGD) History of colonoscopy History of tubal ligation Hx of cholecystectomy Family History Other Mental health disorder Substance use disorder Social History Household Members: None Housing: Other Housing Other:: Sr living Are you a primary resident care associate to a significant other at home: No Do you presently have visiting nurse or other home services: No Alcohol intake: current Alcohol intake frequency: does not drink Alcohol type: beer and wine Comment: uses cane occasionally Patient Tobacco Use Status: Never used Tobacco e-Cigarette/Vaping Use: Never Used Second Hand Smoke Exposure: No service: No Current occupational status: retired Cognitive needs: No Hearing needs: No Vision needs: Yes Physical Exam Vital Signs: Last Vital Signs Temp 97.1 F 06/28/24 13:06 Pulse 65 06/28/24 13:06 BP 130/73 06/28/24 13:06 Pulse Ox 96 06/28/24 13:06 Oxygen Delivery Method Room Air 06/28/24 13:06 BMI result Body Mass Index 26.7 Const General: healthy appearing and no acute distress Resp Effort & Inspection: normal respiratory effort Auscultation: clear to auscultation bilaterally Cardio Rate: regular rate Rhythm: regular rhythm GI Auscultation: normal bowel sounds Extrem General: Yes normal to inspection Assessment & Plan Assessment & Plan (1) S/P repair of paraesophageal hernia: Code(s): Z98.890 - Other specified postprocedural states; Z87.19 - Personal history of other diseases of the digestive system Category: Surgical Plan: Patient is doing well and very satisfied with the results of her surgery. She has achieved a healthy weight that she is happy with. She will continue to monitor what she eats, she did have 1 episode of bloated and feeling very full after having too much hamburger. She will monitor this and avoid that. Encouraged to continue exercise, increasing frequency. She will follow up in our office as needed.
[2024-06-28 13:06] VITALS: BP 130/73; PULSE 65; TEMP 36.2; O2SAT 96; BMI 26.7
== END 2024-06-28 13:30 | disposition home or self-care (01) ==
PROVIDERS: PCP Internal Medicine; Visit Provider Physician Assistant Surgical
DX: K44.9 Diaphragmatic hernia without obstruction or gangrene (principal); Z98.890 Other specified postprocedural states; Z87.19 Personal history of other diseases of the digestive system
CPT/HCPCS: 99213

== ENCOUNTER → 2024-06-28 12:39 | Outpatient (BNVA) | payer MEDICARE, BC, SELFPAY | PROVIDERS: PCP Internal Medicine; Visit Provider Physician Assistant Surgical | DX: K44.9 Diaphragmatic hernia without obstruction or gangrene (principal); E66.01 Morbid (severe) obesity due to excess calories; Z68.26 Body mass index [BMI] 26.0-26.9, adult; Z87.19 Personal history of other diseases of the digestive system; Z98.890 Other specified postprocedural states | CPT/HCPCS: 99212 ==

== ENCOUNTER 2024-07-11 08:51 | Outpatient (AMB) | payer MEDICARE, BC, SELFPAY ==
--- NOTE | 2024-07-11 08:53 | A.OFFPC_ITS ---
Vital Signs 07/11/24 08:54 Height 5 ft Weight 137 lb 6 oz BMI 26.8 BP 120/68 Blood Pressure Location Lt brachial Position Sitting Pulse 51 Pulse Source Pulse Oximeter Pulse Oximetry (%) 95 Oxygen Delivery Method Room Air Intake Visit Reasons: 6 Month F/U Allergies ibuprofen [From MOTRIN] Allergy (Intermediate, Verified 07/11/24 08:54) HAND SWELLING sulfamethoxazole [From Bactrim] Allergy (Intermediate, Verified 07/11/24 08:54) Rash trimethoprim [From Bactrim] Allergy (Intermediate, Verified 07/11/24 08:54) Rash alendronate sodium [From FOSAMAX] Allergy (Mild, Verified 07/11/24 08:54) JOINT PAIN simvastatin Adverse Reaction (Intermediate, Verified 07/11/24 08:54) leg cramps Medication List - Last Reconciled 07/11/24 by Latricia Hebert MD cyanocobalamin (vitamin B-12) 500 mcg PO DAILY 90 days ezetimibe 10 mg PO DAILY 90 days fluoxetine 10 mg PO DAILY 90 days Tobacco use date assessed: 07/11/24 Fall risk assessment: No Falls in past year Last assessed Fall Risk: 07/11/24 Dental Screening Dental Screen Date: 07/11/24 Did you have a dental visit in the last 12 months?: Yes Did you have a dental problem in the last 6 months where you did not have access to dental care?: No Was dental information given to patient?: Patient has dentist HPI 6 Month F/U HPI Details Patient came in today for her six-month follow-up appointment Doing well She has stopped going to weight management as patient is doing well with her weight She has a history of bariatric surgery Anxiety stable with fluoxetine 10 mg, patient would like to continue that She is complaining of feeling full in her ears today On examination her ears are filled with cerumen and causing hearing difficulty Both ears were irrigated with good result Patient will return in March for physical exam Labs are needed before visit fasting. [facility] Medical History Obesity due to excess calories Paraesophageal hernia Dysphagia Thoracic scoliosis GERD (gastroesophageal reflux disease) Melena Morbid obesity Lipid disorder Hypertension, essential Anxiety, generalized Surgical History Hx of hernia repair Hx of cystoscopy Hx of needle biopsy History of esophagogastroduodenoscopy (EGD) History of colonoscopy History of tubal ligation Hx of cholecystectomy Family History Other Mental health disorder Substance use disorder Social History Household Members: None Housing: Other Housing Other:: Sr living Are you a primary career technical supervisor to a significant other at home: No Do you presently have visiting nurse or other home services: No Alcohol intake: current Alcohol intake frequency: does not drink Alcohol type: beer and wine Comment: uses cane occasionally Patient Tobacco Use Status: Never used Tobacco e-Cigarette/Vaping Use: Never Used Second Hand Smoke Exposure: No service: No Current occupational status: retired Cognitive needs: No Hearing needs: No Vision needs: Yes Questionnaire PHQ-9 Over the last 2 weeks, how often have you been bothered by any of the following problems? 1. Little interest or pleasure in doing things: not at all 2. Feeling down, depressed, or hopeless: not at all 3. Trouble falling or staying asleep, or sleeping too much: several days 4. Feeling tired or having little energy: not at all 5. Poor appetite or overeating: not at all 6. Feeling bad about yourself - or that you are a failure or have let yourself or your family down: not at all 7. Trouble concentrating on things, such as reading the newspaper or watching television: not at all 8. Moving or speaking so slowly that other people could have noticed. Or the opposite - being so fidgety or restless that you have been moving around a lot more than usual: not at all 9. Thoughts that you would be better off or of hurting yourself in some way: not at all Total score: 1 Depression Screening Interpretation: Negative Depression Screening Done: Yes 41973 - PHQ-9 Billing: Yes Source: Developed by Drs. Derrell Allred, Rhonda Vidal, Tejas aSravia and colleagues, with an educational juan pablo from [employer]. Thrive Questionnaire Date Thrive assessed: 07/11/24 I am a: Patient What is your living situation today?: I have a steady place to live Within the past 12 months, did the food you bought not last and you didn't have the money to get more?: Sometimes True Within the past 12 months, did you worry whether your food would run out before you got money to buy more?: Sometimes True Do you have trouble paying for medicines?: No Do you have trouble getting transportation to medical appointments?: No Do you have trouble paying your heating and electricity bill?: No Do you have trouble taking care of your child, family member or friend?: No Do you have trouble with day-to-day activities such as bathing, preparing meals, shopping, managing finances, etc.?: No Are you currently unemployed and looking for a job?: No Are you interested in more education?: No Please select the resources that you would like help with: None Currently or been in a relationship where the following occur: I choose not to answer THRIVE Score: 2 AUDIT C Alcohol Use Questionnaire (AUDIT-C) 1. How often do you have a drink containing alcohol?: Monthly or less 2. How many drinks containing alcohol do you have on a typical day when you are drinking?: 1 or 2 3. How often do you have six or more drinks on one occasion?: Never Total Score: 1 Score Reviewed/Action Taken: Yes JACOBO-7 AMB Questionnaire JACOBO-7 Date JACOBO - 7 assessed: 07/11/24 Feeling nervous, anxious, or on edge: 1 = Several days Not being able to stop or control worryin = Several days Worrying too much about different things: 1 = Several days Trouble relaxin = Several days Being so restless that it is hard to sit still: 0 = Not at all Becoming easily annoyed or irritable: 1 = Several days Feeling afraid as if something awful might happen: 1 = Several days Total JACOBO-7 score (0-4 normal; 5-9 mild; 10-14 moderate; 15-21 severe): 6 Source: Developed by Drs. Derrell Allred, Rhonda Vidal, Tejas Saravia and colleagues, with an educational juan pablo from [employer]. JACOBO-7 Assessment Billing JACOBO-7 Assessment Tool: JACOBO-7 Assessment 88579 Review of Systems Const Denies chills and Denies fever(s) ENT Denies epistaxis and Denies nasal discharge Card Denies chest pain Resp Denies chest congestion, Denies cough and Denies hemoptysis GI Denies diarrhea and Denies nausea Skin/Breast Denies rash Neuro Reports no additional complaints Psych Reports no additional complaints Endo Reports no additional complaints Physical exam (Primary Care) Vital Signs: Last Vital Signs Pulse 51 07/11/24 08:54 BP 120/68 07/11/24 08:54 Pulse Ox 95 07/11/24 08:54 Oxygen Delivery Method Room Air 07/11/24 08:54 BMI result Body Mass Index 26.8 Tobacco/Smoking Status: Tobacco use Status Tobacco use date assessed 07/11/24 07/11/24 08:54 Patient Tobacco Use Status Never used Tobacco 07/11/24 08:54 e-Cigarette/Vaping Use Never Used 07/11/24 08:54 PHQ-9: PHQ-9 Score PHQ-9: Total score 1 07/11/24 09:31 Depression Screening Interpretation: Negative Thrive Assessment: Date of Thrive Assessment Date Thrive assessed 07/11/24 07/11/24 08:54 Currently or been in a relationship where the following occur: I choose not to answer Const General: cooperative, comfortable and no acute distress Orientation/consciousness: patient oriented x3 HENMT Other: Both ears are filled with cerumen Head: Yes normocephalic Eyes General: appearance normal, both eyes and all related structures Neck Neck: Yes supple Resp Effort & Inspection: normal respiratory effort, no cough and no stridor Cardio Rhythm: regular rhythm Heart sounds: S1 normal heart sound present and S2 normal heart sound present Skin General skin exam: turgor normal Neuro General: patient oriented x3, tone normal and moves all extremities Extrem Right lower extremity: no edema Left lower extremity: no edema Office Procedures Cerumen Removal From which ear canal was the cerumen removed: bilateral Removal: irrigation Notes: patient tolerated procedure well, no complications and ear canal clear 63515-Hru Irrigation/Lavage Coding Level of Care Code Est Pt Level 3 (97141) Complex EM visit Add On G2211 Diagnoses Anxiety, generalized F41.1 Impacted cerumen, bilateral H61.23 Vitamin B12 deficiency E53.8 CPT Codes Office Procedure - CPT: 65256-Yon Irrigation/Lavage ([id number]) Additional Codes JACOBO-7 Assessment Billing - JACOBO-7 Assessment Tool: JACOBO-7 Assessment 04206 ([id number]) Assessment & Plan Assessment & Plan (1) Anxiety, generalized: Code(s): F41.1 - Generalized anxiety disorder Category: Medical (2) Impacted cerumen, bilateral: Code(s): H61.23 - Impacted cerumen, bilateral Category: Medical (3) Vitamin B12 deficiency: Code(s): E53.8 - Deficiency of other specified B group vitamins Category: Medical Plan Patient came in today for her six-month follow-up appointment Doing well She has stopped going to weight management as patient is doing well with her weight She has a history of bariatric surgery Anxiety stable with fluoxetine 10 mg, patient would like to continue that She is complaining of feeling full in her ears today On examination her ears are filled with cerumen and causing hearing difficulty Both ears were irrigated with good result Patient will return in March for physical exam Labs are needed before visit fasting. Orders: Orders Comprehensive [place]. Panel Fast Today E53.8 - Deficiency of other specified B group vitamins, F41.1 - Generalized anxiety disorder Vitamin B12 Today E53.8 - Deficiency of other specified B group vitamins, F41.1 - Generalized anxiety disorder Complete Blood Count Auto Diff Today E53.8 - Deficiency of other specified B group vitamins, F41.1 - Generalized anxiety disorder Lipid Panel Today E53.8 - Deficiency of other specified B group vitamins, F41.1 - Generalized anxiety disorder Vitamin D 25-OH (D2 and D3) Today E53.8 - Deficiency of other specified B group vitamins, F41.1 - Generalized anxiety disorder
[2024-07-11 08:54] VITALS: BP 120/68; PULSE 51; O2SAT 95; BMI 26.8
== END 2024-07-11 10:14 | disposition home or self-care (01) ==
PROVIDERS: PCP Internal Medicine; Visit Provider Internal Medicine
DX: E53.8 Deficiency of other specified B group vitamins (principal); F41.1 Generalized anxiety disorder; H61.23 Impacted cerumen, bilateral

== ENCOUNTER → 2024-07-11 08:51 | Outpatient (BNVA) | payer MEDICARE, BC, SELFPAY | PROVIDERS: PCP Internal Medicine; Visit Provider Internal Medicine | DX: H61.23 Impacted cerumen, bilateral (principal); F41.1 Generalized anxiety disorder; E53.8 Deficiency of other specified B group vitamins; Z79.899 Other long term (current) drug therapy | CPT/HCPCS: 69209; 96127; 99212 ==

== ENCOUNTER 2024-10-04 10:14 | Day surgery (SDC) | payer MEDICARE, BC, SELFPAY ==
[2024-10-02 14:48] VITALS: BMI 26.8
--- NOTE | 2024-10-03 12:03 | P.CONAN_ITS ---
HPI - Anesthesia Eval Consult details Narrative: 69yo F for Colonoscopy [facility] Active Problems Active Problems: All Active Problems Impacted cerumen, bilateral (Acute) S/P repair of paraesophageal hernia (Acute) Vitamin B1 deficiency (Acute) Vitamin B12 deficiency (Acute) Vitamin A deficiency (Acute) Tubulovillous adenoma of colon (Acute) Obesity (Acute) Family history of polyps in the colon (Acute) Dysphagia (Acute) Pre-op examination (Acute) Thoracic scoliosis (Acute) Colon cancer screening (Acute) Encounter for general adult medical examination with abnormal findings (Acute) Fall (Acute) History of herpes zoster (Acute) Obesity (BMI 30.0-34.9) (Acute) Lipid disorder (Acute) Paraesophageal hernia (Acute) GERD (gastroesophageal reflux disease) (Acute) Melena (Acute) Morbid obesity (Acute) Lipid disorder (Acute) Hypertension, essential (Acute) Anxiety, generalized (Acute) Past Medical History Medical History (Updated 07/11/24 @ 09:32 by Latricia Hebert MD) Paraesophageal hernia Dysphagia Thoracic scoliosis GERD (gastroesophageal reflux disease) Melena Obesity due to excess calories Morbid obesity Lipid disorder Hypertension, essential Anxiety, generalized Family History Family History Other Mental health disorder Substance use disorder Family history of problems with anesthesia: No Surgical History Surgical History (Updated 10/02/24 @ 14:46 by Ekaterina Marquez RN) Hx of hernia repair Hx of cystoscopy Hx of needle biopsy History of esophagogastroduodenoscopy (EGD) History of colonoscopy History of tubal ligation Hx of cholecystectomy History of Problems with Anesthesia: No Social History Social History Household Members: None Housing: Other Housing Other:: Sr living Are you a primary home health aide caregiver to a significant other at home: No Do you presently have visiting nurse or other home services: No Alcohol intake: current Alcohol intake frequency: does not drink Alcohol type: beer and wine Comment: uses cane occasionally Patient Tobacco Use Status: Never used Tobacco e-Cigarette/Vaping Use: Never Used Second Hand Smoke Exposure: No service: No Current occupational status: retired Cognitive needs: No Hearing needs: No Vision needs: Yes Meds Allergies Allergy/AdvReac Type Severity Reaction Status Date / Time ibuprofen [From MOTRIN] Allergy Intermediate HAND Verified 07/11/24 08:54 SWELLING sulfamethoxazole Allergy Intermediate Rash Verified 07/11/24 08:54 [From Bactrim] trimethoprim [From Bactrim] Allergy Intermediate Rash Verified 07/11/24 08:54 alendronate sodium Allergy Mild JOINT PAIN Verified 07/11/24 08:54 [From FOSAMAX] simvastatin AdvReac Intermediate leg cramps Verified 07/11/24 08:54 Exam Height,Weight and Vital Signs: Height 5 ft Weight 62.142 kg Assessment and Plan Assessment Anesthesia Assessment: Chart Reviewed Final Anesthetic Review Family History of Problems with Anesthesia: No History of Problems with Anesthesia: No
--- NOTE | 2024-10-04 11:24 | P.HPSUR_ITS ---
Pre-Procedural Eval Section A - 24 Hr Update-Section A only Date of Service: 10/04/24 Section B - Complete if H&P > 30 days Chief Complaint: Benign neoplasm of colon, unspecified Relevant Family History (Specify if Yes): No Relevant Social History: None Present Medications: see Short Stay Collaborative assessment Medical History: Significant History (Paraesophageal hernia Dysphagia Thoracic scoliosis GERD (gastroesophageal reflux disease) Melena Obesity due to excess calories Morbid obesity Lipid disorder Hypertension, essential Anxiety, generalized) History of Previous Operations: Relevant previous surgery/procedure and date(s) (Hx of hernia repair Hx of cystoscopy Hx of needle biopsy History of esophagogastroduodenoscopy (EGD) History of colonoscopy History of tubal li gation Hx of cholecystectomy) Allergies: Allergies Allergy/AdvReac Type Severity Reaction Status Date / Time ibuprofen [From MOTRIN] Allergy Intermediate HAND Verified 07/11/24 08:54 SWELLING sulfamethoxazole Allergy Intermediate Rash Verified 07/11/24 08:54 [From Bactrim] trimethoprim [From Bactrim] Allergy Intermediate Rash Verified 07/11/24 08:54 alendronate sodium Allergy Mild JOINT PAIN Verified 07/11/24 08:54 [From FOSAMAX] simvastatin AdvReac Intermediate leg cramps Verified 07/11/24 08:54 Review of Systems Sugical H&P ROS: Negative: Constitution, Cardiovascular, Respiratory, Neurological, Psychiatric, Hem-Onc, Allergic/Immunologic, Gastrointestinal, Genitourinary, Musculoskeletal, Integumentary, Endocrine and Eyes/Ears/Nose/Throat Exam Surgical H&P Exam: Normal: HEENT, Normal: Heart, Normal: Lungs, Normal: Extremities, Normal: Abdomen, Normal: Skin and Normal: Neurological Plan Diagnosis/Plan: Unchanged I have reviewed the history and physical and performed a pertinent physical examination on my patient. No changes have occurred unless specified. Time Spent With Patient Time: Total time managing care of this patient today ____ minutes.
[2024-10-04 11:42] VITALS: BMI 26.6
[2024-10-04 11:49] VITALS: BP 162/71; PULSE 64; RESP 16; TEMP 36.8; O2SAT 97
[2024-10-04] MEDS: Lactated Ringers 1,000 ML 100 ML IVCONT (11:58)
--- NOTE | 2024-10-04 12:41 | HO.OPN-COLON ---
Colonoscopy Operative Note Operative Note Date of Service: 10/04/24 Narrative: Operative Information Procedure Description: Colonoscopy Indication: hx of colon polyp Anesthesia: MAC COLONOSCOPY Instrument: Olympus variable stiffness pediatric scope 190L Colonoscopy Monitoring: Vital signs and clinical assessment, continuous EKG monitoring, Pulse oximetry, Carbon Dioxide monitoring and blood pressure monitoring were done throughout the procedure. Colon withdrawal time was 9 minutes. Procedure: The patient was placed in the left lateral decubitis position and pre-procedure medications were administered. After a digital rectal examination of the ano-rectum, the video colonoscope was inserted into the rectum and advanced through the colon to the cecum/TI. The colonoscope was slowly withdrawn in a retrograde panoramic fashion and the colon mucosa was carefully examined including a retroflexed view of the rectum. Findings and interventions are described below. Procedure Difficulty: moderate Findings: Terminal Ileum-normal Cecum: 3-4 mm sessile polyp removed with cold forceps Ascending Colon: normal Transverse Colon -normal Descending Colon:normal Sigmoid Colon: moderate severe diverticulosis Rectum: Retroflexion with small internal hemorrhoids seen, grade I Anorectum - normal Intervention: cold forceps Colon preparation: [place] Bowel Preparation Scale Right colon; 2 Transverse colon: 2 Left colon; 2 (0 = Unprepared colon segment with mucosa not seen due to solid stool that cannot be cleared. 1 = Portion of mucosa of the colon segment seen, but other areas of the colon segment not well seen due to staining, residual stool and/or opaque liquid. 2 = Minor amount of residual staining, small fragments of stool and/or opaque liquid, but mucosa of colon segment seen well. 3 = Entire mucosa of colon segment seen well with no residual staining, small fragments of stool or opaque liquid) Impression and Post Procedure Diagnosis: diverticulosis colon polyps internal hemorrhoids Plan: High fiber diet leaflet Avoid straining at stool, epsom salts and sitz bath, anusol supps or cream Repeat Colonoscopy in 3-4 years due to polyp history or earlier if clinically indicated Above findings were reviewed with the patient and relevant handouts were provided if indicated.
[2024-10-04 12:43] VITALS: BP 117/57; PULSE 60; RESP 18; TEMP 36.2; O2SAT 99
[2024-10-04 12:55] VITALS: BP 115/58; PULSE 58; RESP 16; TEMP 36.3; O2SAT 100
== END 2024-10-04 13:43 | disposition home or self-care (01) ==
PROVIDERS: PCP Internal Medicine; Visit Provider Internal Medicine Gastroenterology
PROC: 0DJD8ZZ Inspection of Lower Intestinal Tract, Via Natural or Artificial Opening Endoscopic (ICD-10-PCS; CPT 45378; principal; 2024-10-04 11:40)
DX: Z12.11 Encounter for screening for malignant neoplasm of colon (principal); Z86.0101 Personal history of adenomatous and serrated colon polyps; Z83.719 Family history of colon polyps, unspecified; D12.0 Benign neoplasm of cecum; K57.30 Diverticulosis of large intestine without perforation or abscess without bleeding; K64.0 First degree hemorrhoids; K21.9 Gastro-esophageal reflux disease without esophagitis; E75.6 Lipid storage disorder, unspecified; R13.10 Dysphagia, unspecified; K44.9 Diaphragmatic hernia without obstruction or gangrene; I10 Essential (primary) hypertension; E66.01 Morbid (severe) obesity due to excess calories; Z68.32 Body mass index [BMI] 32.0-32.9, adult; F41.1 Generalized anxiety disorder; Z79.899 Other long term (current) drug therapy; Z88.6 Allergy status to analgesic agent; Z88.2 Allergy status to sulfonamides; Z88.8 Allergy status to other drugs, medicaments and biological substances
CPT/HCPCS: 45380; 88305; J2003; J2704

== ENCOUNTER → 2024-10-04 10:14 | Outpatient (BNV) | payer MEDICARE, BC, SELFPAY | PROVIDERS: PCP Internal Medicine; Visit Provider Internal Medicine Gastroenterology | DX: Z12.11 Encounter for screening for malignant neoplasm of colon (principal); Z86.0100 Personal history of colon polyps, unspecified; D12.0 Benign neoplasm of cecum; K57.30 Diverticulosis of large intestine without perforation or abscess without bleeding | CPT/HCPCS: 45380 ==

== ENCOUNTER 2025-04-03 10:10 | Outpatient (REF) | payer MEDICARE, BC, SELFPAY ==
[2025-04-03 13:51] LABS: MANUAL DIFF FLAG NO
[2025-04-03 14:06] LABS: Hematocrit 38.8 % (37.0-47.0); Hemoglobin 12.5 g/dl (12.0-16.0); Imm Gran Abs Auto 0.02 X10*3/uL (0.00-0.03); Imm Gran Pct Auto 0.4 % (0.0-0.4); Lymphocytes Absolute Auto 1.1 X10*3/uL (1.2-4.9); Mean Corpuscular HGB Conc 32.2 g/dl (31.0-35.0); Mean Corpuscular Hemoglobin 32.0 pg (27.0-33.0); Mean Corpuscular Volume 99.2 fL (80.0-98.0); NRBC Abs Auto 0.000 X10*3/uL (0.0-0.012); NRBC Pct Auto 0.0 /100WBC (0.0-0.2); Platelet Count 244 X10*3/uL (160-400); Red Blood Count 3.91 X10*6/uL (4.20-5.50); White Blood Count 5.4 X10*3/uL (4.8-10.8)
[2025-04-03 14:30] LABS: Alanine Aminotransferase 14 U/L (0-31); Albumin Level 4.5 g/dL (3.5-5.0); Alkaline Phosphatase 55 U/L (39-117); Anion Gap 13 (12-20); Aspartate Amino Transferase 22 U/L (5-31); Blood Urea Nitrogen 19 mg/dL (9-16); Calcium 8.9 mg/dL (8.4-10.2); Carbon Dioxide 30 mmol/L (22-29); Chloride 104 mmol/L (96-108); Cholesterol 194 mg/dL (<200); Estimated Glomerular Filt Rate > 60; HDL Cholesterol 57 mg/dL (>40); Potassium 4.3 mmol/L (3.3-5.1); Sodium 143 mmol/L (135-145); Total Protein 6.7 g/dL (6.5-8.0); Triglycerides 137 mg/dL (<150)
[2025-04-03 14:46] LABS: Vitamin B12 350 pg/mL (200-900)
[2025-04-06 18:33] LABS: Vitamin D 25-OH, D2 <4 ng/mL; Vitamin D 25-OH, D3 28 ng/mL; Vitamin D 25-OH, Total 28 ng/mL (30-100)
== END 2025-04-03 10:11 | disposition home or self-care (01) ==
LOC: HO.HMGCLDS 10:10
PROVIDERS: PCP Internal Medicine; Visit Provider Internal Medicine
DX: Z00.01 Encounter for general adult medical examination with abnormal findings (principal); E78.9 Disorder of lipoprotein metabolism, unspecified; F41.1 Generalized anxiety disorder; M41.24 Other idiopathic scoliosis, thoracic region; R23.3 Spontaneous ecchymoses; Z13.31 Encounter for screening for depression; Z13.30 Encounter for screening examination for mental health and behavioral disorders, unspecified; E53.8 Deficiency of other specified B group vitamins
CPT/HCPCS: 36415; 80053; 80061; 82306; 82607; 85025; 96127; 99397

== ENCOUNTER 2025-04-03 10:10 | Outpatient (AMB) | payer MEDICARE, BC, SELFPAY ==
[2025-04-03 10:13] VITALS: BP 112/60; PULSE 57; O2SAT 97; BMI 29.9
--- NOTE | 2025-04-03 10:13 | MHC.PC.OV ---
Vital Signs 04/03/25 10:13 Height 5 ft Weight 153 lb BMI 29.9 BP 112/60 Blood Pressure Location Lt brachial Position Sitting Pulse 57 Pulse Source Pulse Oximeter Pulse Oximetry (%) 97 Oxygen Delivery Method Room Air Intake Visit Reasons: Annual PE/Secondary pays for PE [employer] Psychiatrist Required: No Accompanied by: Self / Same As Patient Allergies ibuprofen (From MOTRIN) Allergy (Intermediate, Verified 04/03/25 10:13) HAND SWELLING sulfamethoxazole (From Bactrim) Allergy (Intermediate, Verified 04/03/25 10:13) Rash trimethoprim (From Bactrim) Allergy (Intermediate, Verified 04/03/25 10:13) Rash alendronate sodium (From FOSAMAX) Allergy (Mild, Verified 04/03/25 10:13) JOINT PAIN simvastatin Adverse Reaction (Intermediate, Verified 04/03/25 10:13) leg cramps Medication List - Last Reconciled 04/03/25 by Latricia Hebert MD ezetimibe 10 mg PO DAILY 90 days fluoxetine 10 mg PO DAILY 90 days Tobacco use date assessed: 04/03/25 Fall risk assessment: No Falls in past year Last assessed Fall Risk: 04/03/25 Dental Screening Dental Screen Date: 04/03/25 Did you have a dental visit in the last 12 months?: No Did you have a dental problem in the last 6 months where you did not have access to dental care?: No Was dental information given to patient?: Patient declined HPI Annual PE/Secondary pays for PE HPI Details History of Present Illness - The patient is a 70-year-old female presenting for a routine physical examination. - The patient reports a stable mood and anxiety, which she manages with fluoxetine, a medication she has been taking continuously. - The patient underwent a colonoscopy in September 2024, where a polyp was discovered and removed. The procedure was a follow-up to a previous colonoscopy. - The patient mentioned a weight loss down to 127 pounds due to stress related to family issues; however, during the period of staying with her sister, her weight increased. After moving into her own place, she attempts to correct her diet and lifestyle. Medical History: - Anxiety - Depression - Colon polyp removed in September 2024, next colonoscopy will be in 2028 - Skin fragility - lipid disorder Social History: - The patient recently moved into a new apartment and previously lived with her sister from July to February. - Describes nutritional intake challenges, mentioning her sister's preference for fast food and candy, which she found tempting during her stay. - Weight was affected by stress when living with family, specifically her grandson, leading to an initial weight reduction but increased consumption of less healthy options subsequently. - Currently lives with sister with the objective to manage weight and dietary habits. Health Maintenance - Mammogram performed in March 2025, with a follow-up scheduled in two weeks. - Colonoscopy performed in September 2024 with polyp removal; advised to repeat colonoscopy in three to four years. - Annual blood work check was last conducted in the previous year, and the next lab test is ordered as fasting. Patient Instructions - Schedule fasting lab work as part of annual health maintenance. - Continue with Zetia and fluoxetine as prescribed. - Avoid activities that may cause skin injury or bruising by being cautious during movements and while handling objects. - Maintain a healthy diet and avoid high-calorie, sugary foods to manage weight effectively. - Follow up for the scheduled mammogram. Follow-up six-month Review of Systems - General: No fever no chills - Neurological: No headaches no dizziness - Ear nose throat: No sore throat no hearing difficulty no ear pain - Cardiovascular: No syncope, no chest pain, no palpitations - Gastrointestinal: No nausea vomiting or diarrhea - Endocrine: No polyuria polydipsia no heat intolerance - Genitourinary: No dysuria - Skin: No new complaints Physical Exam General: Cooperative, healthy appearing, comfortable, no acute distress Orientation: Patient oriented x3 Head: Normal to inspection Ears: Within normal limit visually Nose: Normal external nose present Face and sinus: Normal facial exam Eyes: Appearance normal, extraocular movement intact pupils reactive Neck: Normal visual inspection and supple Respiratory: Normal respiratory effort and able to speak in complete sentences. Clear to auscultation, no stridor Cardiovascular: S1 and S2 RRR Breast exam declined GI: Normal to inspection. Soft to palpation and nontender Skin: Turgor normal, no acute findings, occasional bruising noted, likely due to minor trauma from moving activities Neuro: Patient oriented x3, motor sensory intact, balance intact, tandem failed Extremities: No edema, range of motion intact, slightly limited in knees FORMERLY [facility], [facility]1983 Medical History Paraesophageal hernia Dysphagia Thoracic scoliosis GERD (gastroesophageal reflux disease) Melena Obesity due to excess calories Morbid obesity Lipid disorder Hypertension, essential Anxiety, generalized Surgical History Hx of hernia repair Hx of cystoscopy Hx of needle biopsy History of esophagogastroduodenoscopy (EGD) History of colonoscopy History of tubal ligation Hx of cholecystectomy Family History Daughter Mental health disorder Other Substance use disorder Social History Household Members: None Housing: Other Housing Other:: Sr living Are you a primary palliative care specialist to a significant other at home: No Do you presently have visiting nurse or other home services: No Alcohol intake: current Alcohol intake frequency: does not drink Alcohol type: beer and wine Comment: uses cane occasionally Patient Tobacco Use Status: Never used Tobacco e-Cigarette/Vaping Use: Never Used Second Hand Smoke Exposure: No service: No Current occupational status: retired Cognitive needs: No Hearing needs: No Vision needs: Yes Questionnaire PHQ-9 Over the last 2 weeks, how often have you been bothered by any of the following problems? 1. Little interest or pleasure in doing things: not at all 2. Feeling down, depressed, or hopeless: not at all 3. Trouble falling or staying asleep, or sleeping too much: not at all 4. Feeling tired or having little energy: not at all 5. Poor appetite or overeating: not at all 6. Feeling bad about yourself - or that you are a failure or have let yourself or your family down: not at all 7. Trouble concentrating on things, such as reading the newspaper or watching television: not at all 8. Moving or speaking so slowly that other people could have noticed. Or the opposite - being so fidgety or restless that you have been moving around a lot more than usual: not at all 9. Thoughts that you would be better off or of hurting yourself in some way: not at all Total score: 0 Depression Screening Interpretation: Negative Depression Screening Done: Yes 72973 - PHQ-9 Billing: Yes Source: Developed by Drs. Derrell Allred, Rhonda Vidal, Tejas Saravia and colleagues, with an educational juan pablo from [employer] Thrive Questionnaire Date Thrive assessed: 04/03/25 I am a: Patient What is your living situation today?: I have a steady place to live Within the past 12 months, did the food you bought not last and you didn't have the money to get more?: Never true Within the past 12 months, did you worry whether your food would run out before you got money to buy more?: Never true Do you have trouble paying for medicines?: No Do you have trouble getting transportation to medical appointments?: No Do you have trouble paying your heating and electricity bill?: No Do you have trouble taking care of your child, family member or friend?: No Do you have trouble with day-to-day activities such as bathing, preparing meals, shopping, managing finances, etc.?: No Are you currently unemployed and looking for a job?: No Are you interested in more education?: No Please select the resources that you would like help with: None Currently or been in a relationship where the following occur: No concerns reported THRIVE Score: 0 AUDIT C Alcohol Use Questionnaire (AUDIT-C) 1. How often do you have a drink containing alcohol?: Monthly or less 2. How many drinks containing alcohol do you have on a typical day when you are drinking?: 1 or 2 3. How often do you have six or more drinks on one occasion?: Never Total Score: 1 Score Reviewed/Action Taken: Yes JACOBO-7 AMB Questionnaire JACOBO-7 Date JACOBO - 7 assessed: 04/03/25 Feeling nervous, anxious, or on edge: 0 = Not at all Not being able to stop or control worryin = Not at all Worrying too much about different things: 0 = Not at all Trouble relaxin = Not at all Being so restless that it is hard to sit still: 0 = Not at all Becoming easily annoyed or irritable: 0 = Not at all Feeling afraid as if something awful might happen: 0 = Not at all Total JACOBO-7 score (0-4 normal; 5-9 mild; 10-14 moderate; 15-21 severe): 0 Source: Developed by Drs. Derrell Allred, Rhonda Vidal, Tejas Saravia and colleagues, with an educational juan pablo from [employer] JACOBO-7 Assessment Billing JACOBO-7 Assessment Tool: JACOBO-7 Assessment 36077 Physical exam (Primary Care) Vital Signs: Last Vital Signs Pulse 57 04/03/25 10:13 BP 112/60 04/03/25 10:13 Pulse Ox 97 04/03/25 10:13 Oxygen Delivery Method Room Air 04/03/25 10:13 BMI result Body Mass Index 29.9 Tobacco/Smoking Status: Tobacco use Status Tobacco use date assessed 04/03/25 04/03/25 10:18 Patient Tobacco Use Status Never used Tobacco 04/03/25 10:18 e-Cigarette/Vaping Use Never Used 04/03/25 10:18 PHQ-9: PHQ-9 Score PHQ-9: Total score 0 04/03/25 10:44 Depression Screening Interpretation: Negative Thrive Assessment: Date of Thrive Assessment Date Thrive assessed 04/03/25 04/03/25 10:18 Currently or been in a relationship where the following occur: No concerns reported Coding Level of Care Code Est Pt Level 3 (38331) Est Pt Prev Care >65y(47104) Diagnoses Encounter for general adult medical examination with abnormal findings Z00.01 Lipid disorder E78.9 Anxiety, generalized 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, thoracic region M41.24 Scoliosis type: idiopathic Idiopathic scoliosis type: other Easy bruising R23.3 Additional Codes JACOBO-7 Assessment Billing - JACOBO-7 Assessment Tool: JACOBO-7 Assessment 89744 ([id number]) PHQ-9 - 23182 - PHQ-9 Billing: Yes ([id number]) Assessment & Plan Assessment & Plan (1) Encounter for general adult medical examination with abnormal findings: Code(s): Z00.01 - Encounter for general adult medical examination with abnormal findings Category: Medical (2) Lipid disorder: Code(s): E78.9 - Disorder of lipoprotein metabolism, unspecified Category: Medical (3) Anxiety, generalized: Code(s): F41.1 - Generalized anxiety disorder Category: Medical (4) Thoracic scoliosis: Code(s): M41.9 - Scoliosis, unspecified Category: Medical Qualifiers: Scoliosis type: idiopathic Idiopathic scoliosis type: other Qualified Code(s): M41.24 - Other idiopathic scoliosis, thoracic region (5) Easy bruising: Code(s): R23.3 - Spontaneous ecchymoses Category: Medical Plan History of Present Illness - The patient is a 70-year-old female presenting for a routine physical examination. - The patient reports a stable mood and anxiety, which she manages with fluoxetine, a medication she has been taking continuously. - The patient underwent a colonoscopy in September 2024, where a polyp was discovered and removed. The procedure was a follow-up to a previous colonoscopy. - The patient mentioned a weight loss down to 127 pounds due to stress related to family issues; however, during the period of staying with her sister, her weight increased. After moving into her own place, she attempts to correct her diet and lifestyle. Medical History: - Anxiety - Depression - Colon polyp removed in September 2024, next colonoscopy will be in 2028 - Skin fragility - lipid disorder Social History: - The patient recently moved into a new apartment and previously lived with her sister from July to February. - Describes nutritional intake challenges, mentioning her sister's preference for fast food and candy, which she found tempting during her stay. - Weight was affected by stress when living with family, specifically her grandson, leading to an initial weight reduction but increased consumption of less healthy options subsequently. - Currently lives with sister with the objective to manage weight and dietary habits. Health Maintenance - Mammogram performed in March 2025, with a follow-up scheduled in two weeks. - Colonoscopy performed in September 2024 with polyp removal; advised to repeat colonoscopy in three to four years. - Annual blood work check was last conducted in the previous year, and the next lab test is ordered as fasting. Patient Instructions - Schedule fasting lab work as part of annual health maintenance. - Continue with Zetia and fluoxetine as prescribed. - Avoid activities that may cause skin injury or bruising by being cautious during movements and while handling objects. - Maintain a healthy diet and avoid high-calorie, sugary foods to manage weight effectively. - Follow up for the scheduled mammogram. Follow-up six-month
--- OUTSIDE RECORDS SUMMARY | 2025-04-03 11:16 | XMS_ITS | Clinical Summary ---
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 Name Role Phone Unavailable Primary Care Provider Unavailabl e Social History Tobacco Use Types Packs/Day Years Used Date Smoking Tobacco: Never Assessed Comments Unknown Sex and Gender Information Value Date Recorded Sex Assigned at Not on file Legal Sex Female 5:16 AM EST Gender Identity Not on file Sexual Orientation Not on file Plan of Treatment Health Maintenance Due Date Last Done Comments Breast Cancer Screening 1955 DTaP,Tdap,and Td Vaccines (1 - Tdap) 02/10/1972 Pneumococcal Vaccine: 50+ Ye ars (1 of 1 - PCV) 2003 Zoster Vaccines (1 of 2) 2003 Colorectal Cancer Screening: Colonoscopy 08/23/2022 Depression Screening 08/23/2022 Falls Risk Assessment 08/23/2022 Hepatitis C Screening 08/23/2022 Osteoporosis Screening (Bone Density Screening) 08/23/2022 Social Influencers of Health Screening 08/23/2022 COVID-19 Vaccine ( - 2023-2 5 season) 2024 Influenza Vaccine (#1) 2025 RSV Immunization Adult Patie nts (1 - 1-dose 75+ series) 02/10/2028 HIB Vaccines Aged Out No longer eligi ble based on patient's age to complete this topic HPV Vaccines Aged Out No longer eligi ble based on patient's age to complete this topic Hepatitis A Vaccines Aged Out No long er eligible based on patient's age to complete this topic Hepatitis B Vaccines Aged Out No long er eligible based on patient's age to complete this topic IPV Vaccines Aged Out No longer eligi ble based on patient's age to complete this topic MMR Vaccines Aged Out No longer eligi ble based on patient's age to complete this topic Meningococcal ACWY Vaccine Aged Out N o longer eligible based on patient's age to complete this topic Meningococcal B Vaccine Aged Out No l onger eligible based on patient's age to complete this topic RSV Immunization Patients Un dhrvu 20 months Aged Out No longer eligible b ased on patient's age to complete this topic Varicella Vaccines Aged Out No longer eligible based on patient's age to complete this topic Advance Directives Documents on File Type Date Recorded 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
== END 2025-04-03 10:47 | disposition home or self-care (01) ==
LOC: HO.HMCC 10:12
PROVIDERS: PCP Internal Medicine; Visit Provider Internal Medicine
DX: Z00.00 Encounter for general adult medical examination without abnormal findings (principal); E78.9 Disorder of lipoprotein metabolism, unspecified; F41.1 Generalized anxiety disorder; M41.24 Other idiopathic scoliosis, thoracic region; R23.3 Spontaneous ecchymoses

== ENCOUNTER 2025-04-17 09:43 | Outpatient (REF) | payer MEDICARE, BC, SELFPAY ==
--- NOTE | ~2025-04-17 | MM_ITS ---
EXAMINATION: MM SCREENING DIGITAL BREAST TOMOSYNTHESIS, BILATERAL CLINICAL INFORMATION: Screening. Asymptomatic. COMPARISON: Comparison made to multiple prior, most recent April 11, 2024, and most remote April 04, 2018. TECHNIQUE: Digital breast tomosynthesis is performed in both the craniocaudal and mediolateral oblique views along with computer-aided detection (CAD). Synthesized 2D images are generated from the tomosynthesis. FINDINGS: BREAST COMPOSITION: There are scattered areas of fibroglandular density (ACR BI-RADS breast composition Category b). BILATERAL BREASTS: No significant masses, suspicious calcifications or other abnormalities are seen in either breast. MM/MM tomosynthesis screening BI IMPRESSION: BILATERAL BREASTS: Negative, no mammographic evidence of malignancy. Normal interval follow-up is recommended in 12 months. ASSESSMENT: BI-RADS 1 - Negative RECOMMENDATION: Routine annual mammography screening. FOLLOW-UP: 1 year F/U This examination should not preclude the clinical evaluation of a suspicious palpable abnormality. This patient's information was entered into a reminder system with a target due date for their next mammogram. Electronically signed by: Ricarda Costello MD 04/24/2025 05:17 PM EDT
--- OUTSIDE RECORDS SUMMARY | 2025-04-17 10:18 | XMS_ITS | Clinical Summary ---
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 Name Role Phone Unavailable Primary Care Provider [...] 2) 2003 Colorectal Cancer Screening: Colonoscopy 08/23/2022 Falls Risk Assessment 08/23/2022 Hepatitis C Screening 08/23/2022 Osteoporosis Screening (Bone Density Screening) 08/23/2022 Social Influencers of Health Screening 08/23/2022 COVID-19 Vaccine (1 - 2023-2 5 season) 2024 Depression Screening 09/20/2024 Influenza Vaccine (#1) 2025 RSV Immunization Adult [...] complete this topic RSV Immunization Patients Un dhruv 20 months Aged Out No longer eligible b ased on patient's age to complete this topic Varicella Vaccines Aged Out No longer eligible based on patient's age to complete this topic Advance Directives Documents on File Type Date Recorded Patient Pathology 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
== END 2025-04-17 09:44 | disposition home or self-care (01) ==
LOC: HO.MAMMO 09:43
PROVIDERS: PCP Internal Medicine; Visit Provider Internal Medicine
DX: Z12.31 Encounter for screening mammogram for malignant neoplasm of breast (principal)
CPT/HCPCS: 77063; 77067

== ENCOUNTER → 2025-04-17 10:00 | Outpatient (BNV) | payer MEDICARE, BC, SELFPAY | PROVIDERS: PCP Internal Medicine; Visit Provider Radiology Body Imaging | DX: Z12.31 Encounter for screening mammogram for malignant neoplasm of breast (principal) | CPT/HCPCS: 77063; 77067 ==